=== PATIENT | female | born 1965 | race African-American/Black ===

== ENCOUNTER 2016-12-24 00:45 | Emergency (ER) | payer BC, MEDICAID ==
[~2016-12-24] VITALS: Ht 167.6 cm; Wt 82.6 kg
[~2016-12-24 00:45] MED LIST: BENADRYL25 MG ORAL; ELIMITE 5% CREA60 GM TOPIC; HYDROCODON-ACE1 EA16 ORAL; HYDROCORTISONE28 G5 TP; KEFLEX500 MG ORAL; KENALOG 0.1% CR15 GM APPLIC; LORTAB 7.5-3251 EACH PO; NKM; NORCO 5-325 TA1 EACH ORAL; PROMETHAZINE HC25 M1 ORAL; PROTONIX40 MG ORAL; RANITIDINE HCL150 MG ORAL; VALIUM5 MG ORAL
[2016-12-24 01:05] VITALS: BP 147/99
[2016-12-24] MEDS ORDERED: Pantoprazole Inj IV ONE (01:30)
[2016-12-24] MEDS ORDERED: Morphine Sulfate 4mg/ml Inj IVP ONE (01:30)
[2016-12-24 01:34] LABS: BASOPHILS % (AUTO) 1.4 % (0.0-2.0); EOSINOPHILS % (AUTO) 0.7 % (0.0-3.0); LYMPHOCYTES % (AUTO) 26.5 % (20.0-45.0); MEAN CORPUSCULAR HEMOGLOBIN 32.4 PG (27.0-31.0); MEAN CORPUSCULAR HGB CONC 33.5 G/DL (32.0-36.0); MEAN CORPUSCULAR VOLUME 97 FL (80-99); MEAN PLATELET VOLUME 5.9 FL (6.5-10.1); MONOCYTES % (AUTO) 5.9 % (1.0-10.0); NEUTROPHILS % (AUTO) 65.5 % (45.0-75.0); PLATELET COUNT 347 K/UL (150-450); RED BLOOD COUNT 4.73 M/UL (4.20-5.40); WHITE BLOOD COUNT 11.5 K/UL (4.8-10.8)
[2016-12-24 01:40] LABS: APPEARANCE,URINE CLEAR; KETONES,URINE NEGATIVE (NEGATIVE); LEUKOCYTE ESTERASE ,URINE NEGATIVE (NEGATIVE); NITRITE,URINE NEGATIVE (NEGATIVE); PH,URINE 6 (4.5-8.0); PROTEIN,URINE 1+ (NEGATIVE); UROBILINOGEN,URINE NORMAL MG/DL (0.0-1.0)
[2016-12-24 01:42] LABS: INR 0.9 (0.9-1.1); PROTHROMBIN TIME 9.4 SEC (9.30-11.50)
[2016-12-24 01:49] LABS: BACTERIA,URINE FEW /HPF; MUCUS,URINE FEW /LPF (NONE/OCC); SQUAMOUS EPITHELIAL CELL,UR MODERATE /LPF (NONE/OCC); WBC,URINE 0 /HPF (0 - 2)
[2016-12-24 01:54] LABS: ALANINE AMINOTRANSFERASE 14 U/L (3-33); ALBUMIN/GLOBULIN RATIO 1.2 (1.0-2.7); ALCOHOL 32 mg/dL; ANION GAP 19 (5-15); ASPARTATE AMINO TRANSFERASE 27 U/L (5-40); CALCIUM 9.2 mg/dL (8.6-10.2); CARBON DIOXIDE 21 mEQ/L (20-30); CHLORIDE 94 mEQ/L (98-107); CREATININE 0.9 mg/dL (0.5-0.9); GLOMERULAR FILTRATION RATE > 60 mL/min (>60); HEMOLYSIS 20; LIPASE 36 U/L (< 60); SODIUM 134 mEQ/L (135-145); TOTAL PROTEIN 7.7 g/dL (6.6-8.7)
[2016-12-24 01:58] LABS: TROPONIN I < 0.30 ng/mL (<=0.30)
--- NOTE | 2016-12-24 02:56 | Emergency Room Report ---
History of Present Illness General Chief Complaint: Vomiting Source: Patient Present Illness HPI Patient came in because she is vomiting blood and also passing blood per rectum. This began at 5 pm today. She states she's had ulcer in the past. She also some epigastric pain. Pain is 8/10, burning and pressure, epigastric not radiating. No meds taken. The rectal blood has been more bright and not melanotic. She has been straining with stools. No diarrhea. She does not have pain medicine at home. No fever, dysuria, CP, SOB, sore throat, extremity pain. Allergies: Coded Allergies: No Known Allergies (Unverified , 07/23/13) Patient History Past Medical History: see triage record Social History: Reports: alcohol use, smoking Social History Narrative at home - works at [employer] [place] [employer] [place] Last Menstrual Period: December Reviewed Nursing Documentation: PMH: Agreed, PSxH: Agreed Review of Systems All Other Systems: negative except mentioned in HPI Physical Exam Vital Signs Date Time Temp Pulse Resp B/P Pulse Ox O2 Delivery O2 Flow Rate FiO2 12/24/16 00:52 98.1 93 18 146/99 98 Room Air Sp02 EP Interpretation: reviewed, normal General Appearance: well appearing, no apparent distress, GCS 15 Head: normocephalic Eyes: bilateral eye normal inspection ENT: moist mucus membranes Neck: supple Respiratory: chest non-tender, lungs clear, normal breath sounds Cardiovascular #1: regular rate, rhythm Cardiovascular #2: 2+ radial (R) Gastrointestinal: normal inspection, normal bowel sounds, non tender, no mass, non-distended, overweight Musculoskeletal: back normal, gait/station normal, normal range of motion Neurologic: alert, oriented x3, grossly normal Psychiatric: mood/affect normal Skin: normal inspection, warm/dry Medical Decision Making Diagnostic Impression: Primary Impression: Upper GI bleed Additional Impression: Lower GI bleed ER Course Patient with vomiting blood and passing blood ME. DDx: DIC, PUD, gastritis, hemorrhoids, diverticulosis amongst others. Emergent evaluation with EKG, abd films, and labs. Treatment with IV hydration, pepcid, zofran and analgesia. H/H good. Labs unremarkable. EKG normal. CXR and abd films unremarkable. Of note is + blood alcohol. Patient feels better with treatment and is comfortable with outpatient observation. Understands need to see PMD as well as importance to return if not doing well. (Had the patient nor improved I was considering observing her in the hospital - I told her this.) Patient stable for outpatient observation and treatment. Laboratory Tests Test 12/24/16 01:00 White Blood Count 11.5 K/UL (4.8-10.8) H Red Blood Count 4.73 M/UL (4.20-5.40) Hemoglobin 15.3 G/DL (12.0-16.0) Hematocrit 45.7 % (37.0-47.0) Mean Corpuscular Volume 97 FL (80-99) Mean Corpuscular Hemoglobin 32.4 PG (27.0-31.0) H Mean Corpuscular Hemoglobin Concent 33.5 G/DL (32.0-36.0) Red Cell Distribution Width 13.0 % (11.6-14.8) Platelet Count 347 K/UL (150-450) Mean Platelet Volume 5.9 FL (6.5-10.1) L Neutrophils (%) (Auto) 65.5 % (45.0-75.0) Lymphocytes (%) (Auto) 26.5 % (20.0-45.0) Monocytes (%) (Auto) 5.9 % (1.0-10.0) Eosinophils (%) (Auto) 0.7 % (0.0-3.0) Basophils (%) (Auto) 1.4 % (0.0-2.0) Prothrombin Time 9.4 SEC (9.30-11.50) Prothrombin Time INR 0.9 (0.9-1.1) PTT 29 SEC (23-33) Urine Color Pale yellow Urine Appearance Clear Urine pH 6 (4.5-8.0) Urine Specific [place] 1.020 (1.005-1.035) Urine Protein 1+ (NEGATIVE) H Urine Glucose (UA) Negative (NEGATIVE) Urine Ketones Negative (NEGATIVE) Urine Occult Blood 5+ (NEGATIVE) H Urine Nitrite Negative (NEGATIVE) Urine Bilirubin Negative (NEGATIVE) Urine Urobilinogen Normal MG/DL (0.0-1.0) Urine Leukocyte Esterase Negative (NEGATIVE) Urine RBC 10-15 /HPF (0 - 2) H Urine WBC 0 /HPF (0 - 2) Urine Squamous Epithelial Cells Moderate /LPF (NONE/OCC) H Urine Bacteria Few /HPF (NONE) Urine Mucus Few /LPF (NONE/OCC) H Sodium Level 134 mEQ/L (135-145) L Potassium Level 4.0 mEQ/L (3.4-4.9) Chloride Level 94 mEQ/L (98-107) L Carbon Dioxide Level 21 mEQ/L (20-30) Anion Gap 19 (5-15) H Blood Urea Nitrogen 15 mg/dL (7-23) Creatinine 0.9 mg/dL (0.5-0.9) Estimate Glomerular Filtration Rate > 60 mL/min (>60) Glucose Level 89 mg/dL (74-106) Calcium Level 9.2 mg/dL (8.6-10.2) Total Bilirubin < 0.2 mg/dL (0.0-1.2) Aspartate Amino Transferase (AST) 27 U/L (5-40) Alanine Aminotransferase (ALT) 14 U/L (3-33) Alkaline Phosphatase 86 U/L (35-104) Troponin I < 0.30 ng/mL (<=0.30) Total Protein 7.7 g/dL (6.6-8.7) Albumin 4.2 g/dL (3.5-5.2) Globulin 3.5 g/dL Albumin/Globulin Ratio 1.2 (1.0-2.7) Lipase 36 U/L (< 60) Urine Opiates Screen Negative (NEGATIVE) Urine Barbiturates Screen Negative (NEGATIVE) Phencyclidine (PCP) Screen Negative (NEGATIVE) Urine Amphetamines Screen Negative (NEGATIVE) Urine Benzodiazepines Screen Negative (NEGATIVE) Urine Cocaine Screen Negative (NEGATIVE) Urine Marijuana (THC) Screen Positive (NEGATIVE) H Serum Alcohol 32 mg/dL EKG Diagnostic Results Rate: normal Rhythm: NSR ST Segments: no acute changes Rhythm Strip Diag. Results EP Interpretation: yes Rhythm: NSR, no PVC's, no ectopy Chest X-Ray Diagnostic Results EP Interpretation: Yes Number of Views: 1 Other X-Ray Diagnostic Results Other X-Ray Diagnostic Results : X-Ray Ordered: abd EP Interpretation: Yes Findings: other - NSBGP, no masses, phleboliths Number of Views: 2 Last Vital Signs Date Time Temp Pulse Resp B/P Pulse Ox O2 Delivery O2 Flow Rate FiO2 12/24/16 06:18 98.1 77 17 137/88 100 Room Air Status: improved Disposition: HOME, SELF-CARE Condition: Improved Scripts Lactulose (LACTULOSE*) 20 Gm/30 Ml Solution 30 ML ORAL BID, #120 ML 1 Refill Prov: Scott Jones M.D. 12/24/16 Famotidine (PEPCID) 20 Mg Tablet 20 MG ORAL DAILY, #30 TAB 0 Refills Prov: Scott Jones M.D. 12/24/16 Tramadol Hcl* (ULTRAM*) 50 Mg Tablet 50 MG ORAL Q6H Y for For Pain, #12 TAB 0 Refills Prov: Scott Jones M.D. 12/24/16 Referrals: NOT CHOSEN HOANG/,REFERRING (PCP) Scott Jones M.D. Dec 24, 2016 02:56
[2016-12-24] MEDS ORDERED: HYDROmorphone 1mg/ml Carpuject IVP ONE (03:15)
[2016-12-24 03:21] VITALS: BP 153/92
[2016-12-24 05:48] VITALS: BP 137/88
[2016-12-24] MEDS ORDERED: DiphenhydrAMINE 50mg/ml Inj IVP ONE (06:00)
[2016-12-24] MEDS ORDERED: PEPCID20 MG ORAL (06:06)
[2016-12-24] MEDS ORDERED: TRAMADOL HCL50 MG ORAL (06:06)
[2016-12-24] MEDS ORDERED: LACTULOSE20 GM/301 ORAL (06:06)
[2016-12-24 06:18] VITALS: BP 137/88
--- NOTE | 2016-12-24 11:41 | Diagnostic Imaging Report ---
Indication: Abdominal pain Comparison: None Single view of the abdomen obtained Findings: Bowel gas pattern is nonspecific. No mass, ectopic calcifications, or abnormal gas collections are identified. The bones are unremarkable. Impression: No acute findings
--- NOTE | 2016-12-27 11:36 | Cardiology Report ---
APPROVED REPORT EKG Measurement Heart [id number] VT 156P [id number] Suspect arm lead reversal, interpretation assumes no reversal Normal sinus rhythm Anterolateral infarct, age undetermined Abnormal ECG
== END 2016-12-24 06:18 | disposition home or self-care (01) ==
LOC: EMR 01:45
DX: K92.2 Gastrointestinal hemorrhage, unspecified (principal)
CPT/HCPCS: 36415; 74000; 80053; 80300; 81003; 83690; 84484; 85025; 85610; 85730; 86850; 86900; 86901; 93005; 96374; 96375; 99284; C9113; G0480; J1170; J1200; J2270; J2405; 80329

== ENCOUNTER 2018-11-13 11:40 | Inpatient (IN) | payer BC ==
[~2018-11-13] VITALS: Ht 167.6 cm; Wt 82.6 kg
[~2018-11-13 11:40] MED LIST changes: +LACTULOSE20 GM/301 ORAL; +PEPCID20 MG ORAL; +TRAMADOL HCL50 MG ORAL
--- NOTE | 2018-11-13 11:46 | NUR ---
ED Nurse Note: AMBULATED IN TO ER DUE TO HEADACHE, WEAK, LEFT CHEST PAIN 8/10 RADIATING TO RIGHT EAR AND HEAD. PT REPORTS THAT SYMPTOMS STARTED AFTER SHE HAD SEIZURE 11/11/18. PT REPORTS THAT DR. CAMILO HARO REFERRED PT TO VISIT ER TODAY. Patient is alert and oriented x4, ambulatory with a steady gait, VSS
[2018-11-13] MEDS ORDERED: KEPPRA500 M4 ORAL (11:51)
[2018-11-13 12:03] VITALS: BP 130/94
[2018-11-13 12:24] LABS: EOSINOPHILS % (AUTO) 0.8 % (0.0-3.0); HEMATOCRIT 48.6 % (37.0-47.0); HEMOGLOBIN 15.6 G/DL (12.0-16.0); LYMPHOCYTES % (AUTO) 26.4 % (20.0-45.0); MEAN CORPUSCULAR VOLUME 95 FL (80-99); MONOCYTES % (AUTO) 5.7 % (1.0-10.0); NEUTROPHILS % (AUTO) 66.1 % (45.0-75.0); PLATELET COUNT 356 K/UL (150-450); RED BLOOD COUNT 5.13 M/UL (4.20-5.40); RED CELL DISTRIBUTION WIDTH 14.2 % (11.6-14.8); WHITE BLOOD COUNT 6.4 K/UL (4.8-10.8)
--- NOTE | 2018-11-13 12:32 | Diagnostic Imaging Report ---
Indication: Chest pain Comparison: 09/15/2014 A single view chest radiograph was obtained. Findings: Cardiomediastinal appearance is within normal limits for age. The lungs are clear. Pulmonary vascularity is appropriate. The diaphragmatic contour is smooth and costophrenic angles are sharp. No pleural effusions are identified. The bones are unremarkable. Impression: No acute findings
[2018-11-13 12:33] LABS: ANION GAP 14 mmol/L (5-15); BLOOD UREA NITROGEN 12 mg/dL (7-18); CALCIUM 9.4 MG/DL (8.5-10.1); CARBON DIOXIDE 21 MMOL/L (21-32); CHLORIDE 101 MMOL/L (98-107); CREATININE 0.9 MG/DL (0.55-1.30); POTASSIUM 4.1 MMOL/L (3.5-5.1); SODIUM 136 MMOL/L (136-145)
--- NOTE | 2018-11-13 12:42 | Diagnostic Imaging Report ---
Indication: Headache Technique: Contiguous 5 mm thick transaxial imaging of the head obtained in a Siemens Sensation [address] scanner. Soft tissue and bone windows generated. Automatic Exposure Control was utilized. Total Dose length Product (DLP): 1281.[address] Dose Index Volume (CTDIvol): 70.38 mGy Comparison: none Findings: The size and configuration of the cortical sulci, basal cisterns, and ventricles are within normal limits for age. There is no mass effect, midline shift, or edema identified. There is no evidence of acute hemorrhage or abnormal intra-axial or extra-axial fluid collections. The bones and soft tissues are unremarkable. Impression: No mass effect, edema or acute bleed. The CT scanner at [facility] is accredited by the [employer] and the scans are performed using dose optimization techniques as appropriate to a performed exam including Automatic Exposure control.
[2018-11-13 12:47] LABS: ALANINE AMINOTRANSFERASE 33 U/L (12-78); ALBUMIN 3.8 G/DL (3.4-5.0); ALBUMIN/GLOBULIN RATIO 0.8 (1.0-2.7); ALKALINE PHOSPHATASE 117 U/L (46-116); ASPARTATE AMINO TRANSFERASE 30 U/L (15-37); BILIRUBIN,TOTAL 0.3 MG/DL (0.2-1.0); CKMB 0.5 NG/ML (0.0-3.6); CREATINE KINASE 70 U/L (26-308)
[2018-11-13] MEDS ORDERED: Ketorolac 30mg Inj IV ONE (13:15)
[2018-11-13] MEDS ORDERED: DiphenhydrAMINE 50mg/ml Inj IVP ONE (13:15)
--- NOTE | 2018-11-13 14:36 | Emergency Room Report ---
History of Present Illness General Chief Complaint: General Complaint Source: Patient Present Illness HPI This patient states that she's been getting severe headaches. She states he's had exerted debilitating. She was also told she may have had seizures. She has not been formally diagnosed with epilepsy and has not seen a neurologist. She states that she was seen at another hospital 2 days ago. She states she underwent a CAT scan of her head and was told she had some cerebellar abnormality of the tonsils. She has not had an MRI. She states that she is also been having chest pain and severe insomnia. She states she has been getting sweating at night. She believes she may be going through menopause. Denies recent illness. She denies fever or chills. She denies nausea or vomiting. She denies abdominal pain. She has no other complaints. Allergies: Coded Allergies: No Known Allergies (Unverified , 11/13/18) Patient History Past Medical History: none, GERD, seizures Social History: Reports: smoking; Denies: alcohol use, drug use Last Menstrual Period: AUG 2018 Reviewed Nursing Documentation: PMH: Agreed; PSxH: Agreed Nursing Documentation-PMH Past Medical History: No History, Except For Hx Seizures: Yes Review of Systems All Other Systems: negative except mentioned in HPI Physical Exam Vital Signs Date Time Temp Pulse Resp B/P (MAP) Pulse Ox O2 Delivery O2 Flow Rate FiO2 11/13/18 11:46 98.6 102 16 130/94 96 Room Air Sp02 EP Interpretation: reviewed, normal General Appearance: no apparent distress, alert, GCS 15, non-toxic Head: normocephalic, atraumatic Eyes: bilateral eye normal inspection, bilateral eye PERRL ENT: hearing grossly normal, normal pharynx, no angioedema, normal voice Neck: full range of motion, supple/symm/no masses Respiratory: chest non-tender, lungs clear, normal breath sounds, no respiratory distress, no retraction, no accessory muscle use, speaking full sentences Cardiovascular #1: regular rate, rhythm, no edema Gastrointestinal: normal bowel sounds, non tender, soft, non-distended, no guarding, no rebound Rectal: deferred Musculoskeletal: back normal, gait/station normal, normal range of motion, non- tender Neurologic: alert, oriented x3, responsive, motor strength/tone normal, sensory intact, speech normal Psychiatric: judgement/insight normal, memory normal, mood/affect normal, no suicidal/homicidal ideation Skin: normal color, no rash, warm/dry, well hydrated Medical Decision Making Diagnostic Impression: Primary Impression: Migraine headache Additional Impression: Chest pain ER Course I believe this patient is having complicated migraine headaches. She notes that she was found to have an abnormal CT scan at another facility that involved her cerebellum. She mentioned tonsillar abnormalities. This could be related to an Arnold-Chiari malformation and could be the etiology of her headaches. She could have underlying seizure disorder. The patient also has been having chest pain. The patient states that she has nonfunctional and her symptoms are non-tolerable. She was admitted IV Benadryl and Compazine here in the emergency department and had good relief. She is admitted for further evaluation by neurology. I will order an MRI brain that this will be followed up by the inpatient physician. This patient may also need an EEG to determine if she is having seizures. She also be admitted to have further evaluation for her chest pain. Laboratory Tests Test 11/13/18 12:00 White Blood Count 6.4 K/UL (4.8-10.8) Red Blood Count 5.13 M/UL (4.20-5.40) Hemoglobin 15.6 G/DL (12.0-16.0) Hematocrit 48.6 % (37.0-47.0) H Mean Corpuscular Volume 95 FL (80-99) Mean Corpuscular Hemoglobin 30.5 PG (27.0-31.0) Mean Corpuscular Hemoglobin Concent 32.2 G/DL (32.0-36.0) Red Cell Distribution Width 14.2 % (11.6-14.8) Platelet Count 356 K/UL (150-450) Mean Platelet Volume 5.6 FL (6.5-10.1) L Neutrophils (%) (Auto) 66.1 % (45.0-75.0) Lymphocytes (%) (Auto) 26.4 % (20.0-45.0) Monocytes (%) (Auto) 5.7 % (1.0-10.0) Eosinophils (%) (Auto) 0.8 % (0.0-3.0) Basophils (%) (Auto) 1.0 % (0.0-2.0) Sodium Level 136 MMOL/L (136-145) Potassium Level 4.1 MMOL/L (3.5-5.1) Chloride Level 101 MMOL/L (98-107) Carbon Dioxide Level 21 MMOL/L (21-32) Anion Gap 14 mmol/L (5-15) Blood Urea Nitrogen 12 mg/dL (7-18) Creatinine 0.9 MG/DL (0.55-1.30) Estimate Glomerular Filtration Rate > 60 mL/min (>60) Glucose Level 95 MG/DL (74-106) Calcium Level 9.4 MG/DL (8.5-10.1) Total Bilirubin 0.3 MG/DL (0.2-1.0) Aspartate Amino Transferase (AST) 30 U/L (15-37) Alanine Aminotransferase (ALT) 33 U/L (12-78) Alkaline Phosphatase 117 U/L (46-116) H Total Creatine Kinase 70 U/L (26-308) Creatine Kinase MB 0.5 NG/ML (0.0-3.6) Creatine Kinase MB Relative Index 0.7 Troponin I 0.000 ng/mL (0.000-0.056) Total Protein 8.6 G/DL (6.4-8.2) H Albumin 3.8 G/DL (3.4-5.0) Globulin 4.8 g/dL Albumin/Globulin Ratio 0.8 (1.0-2.7) L Urine Opiates Screen Negative (NEGATIVE) Urine Barbiturates Screen Negative (NEGATIVE) Phencyclidine (PCP) Screen Negative (NEGATIVE) Urine Amphetamines Screen Negative (NEGATIVE) Urine Benzodiazepines Screen Negative (NEGATIVE) Urine Cocaine Screen Negative (NEGATIVE) Urine Marijuana (THC) Screen Positive (NEGATIVE) H EKG Diagnostic Results Rate: normal Rhythm: NSR ST Segments: no acute changes Rhythm Strip Diag. Results EP Interpretation: yes Rate: 90's Rhythm: NSR, no PVC's, no ectopy Chest X-Ray Diagnostic Results Chest X-Ray Diagnostic Results : Chest X-Ray Ordered: Yes # of Views/Limited/Complete: 1 View Indication: Chest Pain EP Interpretation: Yes Interpretation: no consolidation, no effusion, no pneumothorax, no acute cardiopulmonary disease Impression: No acute disease Electronically Signed by: Vickie Montague DO Last Vital Signs Date Time Temp Pulse Resp B/P (MAP) Pulse Ox O2 Delivery O2 Flow Rate FiO2 11/13/18 13:49 98.6 11/13/18 12:03 88 16 130/94 96 Room Air Disposition: ADMITTED INPATIENT Condition: Stable Referrals: Geoffrey Ayala DO (PCP) Vickie Montague DO Nov 13, 2018 14:36
[2018-11-13 14:38] VITALS: BP 125/84
--- NOTE | 2018-11-13 15:25 | NUR ---
ED Nurse Note: PT WENT DOWN TO MRI
[2018-11-13 15:52] VITALS: BP 127/95
--- NOTE | 2018-11-13 15:55 | NUR ---
ED Nurse Note: Patient transported to telemetry, patient tolerated transfer well with no distress and report was given to MARCELO Mascorro
[2018-11-13] MEDS ORDERED: Albuterol/Ipratropium 3ml neb HHN PRN (16:00)
[2018-11-13] MEDS ORDERED: dilTIAZem HCl 25mg/5ml Inj IV PRN (16:00)
[2018-11-13] MEDS ORDERED: Enalaprilat 2.5mg/2ml Inj IV PRN (16:00)
[2018-11-13] MEDS ORDERED: Ketorolac 30mg Inj IV PRN (16:00)
[2018-11-13] MEDS ORDERED: Norco 5mg/325mg tab ORAL PRN (16:00)
[2018-11-13] MEDS ORDERED: Nitroglycerin Subl 0.4mg tab SL PRN (16:00)
[2018-11-13] MEDS ORDERED: Miralax 17gm pkt ORAL PRN (16:00)
[2018-11-13] MEDS ORDERED: traMADol 50mg tab ORAL PRN (16:00)
--- NOTE | 2018-11-13 16:36 | NUR ---
NURSE NOTES: rceived pt ambulatory, aox4, no distress. no sob. pt states theres still some pain in left chest that does not radiate to arm only to "underarm area but it's better than from when i was in the er" call light within reach. will monitor. pt denies medical history except for seizures. skin intact. Addendum: 11/13/18 at 1911 by BILLY CALDWELL RN PER PT LAST NORMAL BM TODAY PRIOR TO ADMISSION
[2018-11-13 16:40] VITALS: BP 139/103
--- NOTE | 2018-11-13 16:48 | Diagnostic Imaging Report ---
Indication: Seizure. Severe headache Technique: The head was imaged in a 1.5 Lyn magnet. Sequences obtained include sagittal and axial T1 FLAIR, axial T2 fast spin echo with fat saturation, axial T2 FLAIR, diffusion and ADC map. Comparison: None Findings: The size, contour, and configuration of the sulci, ventricles, and basal cisterns appear normal. Au-white differentiation is normal. There is no restricted diffusion. There is no mass effect, midline shift, edema, or hemorrhage. There are no abnormal extra-axial or intra-axial fluid collections. The corpus callosum is unremarkable. The brainstem and cerebellum are unremarkable. The sella is unremarkable. Bone marrow signal within the visualized osseous structures appears age appropriate and unremarkable otherwise. Impression: Negative MRI brain without contrast.
--- NOTE | 2018-11-13 19:08 | NUR ---
HAND-OFF: Report given to MARCELO AVITIA.
--- NOTE | 2018-11-13 19:39 | Cardiology Progress Note ---
Assessment/Plan Assessment/Plan The patient is seen and examined, full consult note is dictated. Objective Last 24 Hour Vital Signs Date Time Temp Pulse Resp B/P (MAP) Pulse Ox O2 Delivery O2 Flow Rate FiO2 11/13/18 16:40 97.8 80 20 139/103 (115) 99 11/13/18 16:33 Room Air 11/13/18 16:11 97.8 95 23 127/95 99 Room Air 11/13/18 15:52 97.8 95 23 127/95 99 Room Air 11/13/18 14:38 98.5 105 22 125/84 98 Room Air 11/13/18 13:49 98.6 11/13/18 12:03 98.6 88 16 130/94 96 Room Air 11/13/18 12:00 102 16 Room Air 11/13/18 11:46 98.6 102 16 130/94 96 Room Air Laboratory Tests Test 11/13/18 12:00 11/13/18 16:30 White Blood Count 6.4 K/UL (4.8-10.8) Red Blood Count 5.13 M/UL (4.20-5.40) Hemoglobin 15.6 G/DL (12.0-16.0) Hematocrit 48.6 % (37.0-47.0) H Mean Corpuscular Volume 95 FL (80-99) Mean Corpuscular Hemoglobin 30.5 PG (27.0-31.0) Mean Corpuscular Hemoglobin Concent 32.2 G/DL (32.0-36.0) Red Cell Distribution Width 14.2 % (11.6-14.8) Platelet Count 356 K/UL (150-450) Mean Platelet Volume 5.6 FL (6.5-10.1) L Neutrophils (%) (Auto) 66.1 % (45.0-75.0) Lymphocytes (%) (Auto) 26.4 % (20.0-45.0) Monocytes (%) (Auto) 5.7 % (1.0-10.0) Eosinophils (%) (Auto) 0.8 % (0.0-3.0) Basophils (%) (Auto) 1.0 % (0.0-2.0) Sodium Level 136 MMOL/L (136-145) Potassium Level 4.1 MMOL/L (3.5-5.1) Chloride Level 101 MMOL/L (98-107) Carbon Dioxide Level 21 MMOL/L (21-32) Anion Gap 14 mmol/L (5-15) Blood Urea Nitrogen 12 mg/dL (7-18) Creatinine 0.9 MG/DL (0.55-1.30) Estimat Glomerular Filtration Rate > 60 mL/min (>60) Glucose Level 95 MG/DL (74-106) Calcium Level 9.4 MG/DL (8.5-10.1) Total Bilirubin 0.3 MG/DL (0.2-1.0) Aspartate Amino Transf (AST/SGOT) 30 U/L (15-37) Alanine Aminotransferase (ALT/SGPT) 33 U/L (12-78) Alkaline Phosphatase 117 U/L (46-116) H Total Creatine Kinase 70 U/L (26-308) Creatine Kinase MB 0.5 NG/ML (0.0-3.6) Creatine Kinase MB Relative Index 0.7 Troponin I 0.000 ng/mL (0.000-0.056) 0.000 ng/mL (0.000-0.056) Total Protein 8.6 G/DL (6.4-8.2) H Albumin 3.8 G/DL (3.4-5.0) Globulin 4.8 g/dL Albumin/Globulin Ratio 0.8 (1.0-2.7) L Urine Opiates Screen Negative (NEGATIVE) Urine Barbiturates Screen Negative (NEGATIVE) Phencyclidine (PCP) Screen Negative (NEGATIVE) Urine Amphetamines Screen Negative (NEGATIVE) Urine Benzodiazepines Screen Negative (NEGATIVE) Urine Cocaine Screen Negative (NEGATIVE) Urine Marijuana (THC) Screen Positive (NEGATIVE) H Aquilino Galeas MD Nov 13, 2018 19:39
--- NOTE | 2018-11-13 19:45 | NUR ---
NURSE NOTES: Received report from Ludwin ROBERTSON. Pt is awake, alert, oriented x4. Pt is on room air with no sign of sob or resp distress. Pt denies pain. call light within reach, bed in lowest position, two side rails up, brakes engaged, will continue with plan of care
[2018-11-13 20:00] VITALS: BP 120/95
[2018-11-13] MEDS: Heparin 5000 units/ml inj SUBQ SCH (21:46)
[2018-11-14] VITALS (8 sets, daily range): BP systolic 100–162; BP diastolic 69–93
[2018-11-14] MEDS: Morphine Sulfate 2mg/ml Inj IVP PRN ×4 (01:04→23:13)
--- NOTE | 2018-11-14 01:30 | Consultation ---
DATE OF CONSULTATION: 11/13/2018 NOTE: POOR AUDIO CONSULTING PHYSICIAN: Balbina Campo M.D. HISTORY OF PRESENT ILLNESS: This is a 53-year-old female patient. She came back to the hospital secondary to chest pain and she presently has a significant amount of chest pain when she came in. She has been having problems with seizure disorder medication such as Dilantin. She does not see Psych regularly. She has been having extreme mood lability, agitation. She apparently started getting very upset with colleagues at work. She states she works in [employer] and she feels as though other staff supposed to. The patient is very upset and she thinks now, actually gets so irritated, seizure medication has made her depressed and highly anxious. That is the reason why psychiatric consultation requested by attending physician to manage her recent anxiety and depression symptoms that she has been having. 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 ALLERGIES: The patient has no known drug allergies at this time. SUBSTANCE ABUSE HISTORY: Denies any use of any drugs or alcohol at this time. PSYCHOTROPIC MEDICATIONS ON ADMISSION: She states she has not been taking any psychotropic medications on admission. FAMILY HISTORY: Denies drug or alcohol use. FAMILY PSYCH HISTORY: Denies. PAIN ASSESSMENT: 12/16 pain. DEVELOPMENTAL PROBLEMS: No known developmental problems at this time. SOCIAL HISTORY: She financially supported by job. PSYCHIATRIC HISTORY: No previous psychiatric history that she mentioned. STRENGTHS: She is motivated to get better. She has her own place to live. WEAKNESSES: She is impulsive. Minimal support system. MENTAL STATUS EXAMINATION: This is a 53-year-old female patient. Her appearance is well groomed. Attitude irritable, agitated. Affect is slightly labile. Intellect good. . Mood, depressed and anxious. Motor activity, psychomotor agitation. Attention span is she has reduced insight spell words backwards. Orientation x4. She is oriented to person, place, time, situation. Speech is normal volume. Thought process linear, goal directed. Thought content, denies auditory or visual hallucinations, or delusions. Perceptions, the patient . She understands . She does not have cognitive thinking. Insight is good. She recognizes her mood. Insight and judgment is good. She is able to make chandler decisions for medical and social care. She denies any suicidal or homicidal ideations. Short-term memory, 3/3 word recall after 5 minutes delay. Long-term memory is intact based on the knowledge of long-term events of life such as the high school that she went to. DIAGNOSES: 1. Major depressive disorder, mild, recurrent, without psychotic features. 2. Medical, chest pain. 3. Psychosocial stressors, occupational stressors. PLAN: For this patient, I am going to start this patient on Remeron at 15 mg at bedtime to help her with insomnia that is one of her complaints and it is going to be at bedtime to deal with insomnia, depression, and anxiety. In addition to that, I am also going to prescribe p.r.n. Vistaril 25 mg p.o. q.4 h. p.r.n. anxiety, agitation, and she will continue to be followed by Psychiatry throughout the hospital course. Twenty minutes of cognitive behavioral therapy provided to identify automatic negative thoughts, to convert any negative thoughts to more positive thinking to reduce depression, anxiety, and mood lability. Chart reviewed. Discussed with staff. The patient seen and assessed in her room. I would like to thank Dr. Geoffrey Ayala for this interesting consultation. Balbina Campo M.D. DR: HONG JOB#: [id number] CC:
--- NOTE | 2018-11-14 01:45 | Consultation ---
DATE OF CONSULTATION: 11/13/2018 CARDIOLOGY CONSULTATION CONSULTING PHYSICIAN: Aquilino Galeas M.D. REFERRING PHYSICIAN: Geoffrey Ayala D.O. REASON FOR CONSULTATION: Management of chest pain. HISTORY OF PRESENT ILLNESS: The patient is a very unfortunate 53-year-old lady with history of epilepsy, on Keppra, wakes up in the morning to go to work, feeling that she might have had another seizure activity while she was asleep as she had noticed severe headache and soreness all over her body with associated left precordial chest pain as well as weakness. The patient states that she was sluggish in the morning and thought that she might have had a seizure activity. She had two other episodes of these seizures in the past, the last one before this one was in June, where this seizure activity was witnessed. This one was not witnessed as she was still at home alone. She denies any tongue biting or urinary incontinence. At the time of arrival to the hospital, blood pressure was 130/94 mmHg and heart rate was 102. A 12-lead electrocardiogram revealed sinus rhythm at rate of 98 with normal axis. No acute ST and T-wave abnormalities. Two troponin I levels were negative. The patient was admitted to telemetry for further evaluation and management of seizure disorder as well as chest pain. At the bedside, the patient states that she has no history of coronary artery disease or congestive heart failure. She denies any dyspnea on exertion. She described chest pain as sharp in the upper left precordial and currently the pain is resolved. There was no associated shortness of breath, nausea, vomiting, or diaphoresis with this condition. PAST MEDICAL HISTORY: GERD and epilepsy. SOCIAL HISTORY: Smokes about 7 to 8 cigarettes per day since she was 17. Denies any alcohol. She also admits to using marijuana. ALLERGIES: No known drug allergies. MEDICATIONS: List of medications at home includes Keflex 500 mg 3 times a day, Valium 5 mg p.o. 3 times a day, Pepcid 20 mg p.o. daily, [place] 5/325 one tablet q.6 h. p.r.n. pain, lactulose 30 mL p.o. twice daily, Keppra 500 mg q.12 h., Permethrin one application topically once daily, and tramadol 50 mg q.6 h. p.r.n. pain. PAST SURGICAL HISTORY: None. FAMILY HISTORY: No premature coronary artery disease or arrhythmogenic in the first-degree relatives. REVIEW OF SYSTEMS: HEAD AND NECK: Complains of dizziness, headaches, and lightheadedness. CONSTITUTIONAL: Complains of generalized weakness, but no fever, chills, or night sweats. CARDIOVASCULAR: Chest pain in the left upper precordial, sharp, non-provoked, not associated with any shortness of breath. Denies any PND, orthopnea, or leg swelling. PULMONARY: Denies any cough, hemoptysis, or wheezing. GASTROINTESTINAL: Denies any nausea, vomiting, diarrhea, constipation, abdominal pain, or GI bleed. GENITOURINARY: Denies any hematuria, dysuria, or incontinence. NEUROLOGY: Denies any motor dysfunction, sensory deficit, or altered speech. PHYSICAL EXAMINATION: VITAL SIGNS: Blood pressure at the time of arrival to the hospital was 130/94, respirations 16, pulse of 103, temperature 98.6 degrees Fahrenheit, and O2 saturation 96% on room air. GENERAL: This is a very unfortunate 53-year-old lady who was seen in Cardiology consultation. No apparent respiratory distress. HEENT: Atraumatic and normocephalic. Anicteric. Pupils are equal, round, and reactive to light and accommodation. Extraocular muscles intact. NECK: JVP less than 5 cm. No carotid bruit. Carotid upstrokes 2+ bilaterally. CARDIOVASCULAR: Normal S1 and S2. Regular rate and rhythm. No murmurs, gallops, or rubs. PMI is at fourth intercostal space in the midclavicular line. LUNGS: Clear to auscultation bilaterally. ABDOMEN: Soft, nontender, and nondistended. No hepatosplenomegaly. Positive bowel sounds. EXTREMITIES: No evidence of edema, clubbing, or cyanosis. LABORATORY FINDINGS: Urine tox screen showed positive marijuana. Chemistry shows sodium 136, potassium is 4.1, chloride 101, bicarbonate 21, BUN of 12, creatinine 0.9, glucose 95, and troponin I x2 negative. WBC 6.4, hemoglobin of 15.6, hematocrit of 48.6, and platelet count is 356,000. Chest x-ray showed there is small cardiac silhouette with no acute cardiopulmonary disease. ASSESSMENT AND PLAN: The patient is a very unfortunate 53-year-old lady, who was seen in Cardiology consultation. 1. Most likely noncardiac chest pain. This could be a chest wall trauma during her seizure activities, there are no ischemic changes on a 12-lead electrocardiogram, acute myocardial infarction ruled out. No further cardiac test is required as the patient does not have any risk factors for coronary artery disease. 2. Epilepsy. Neurology consultation, possible EEG, and adjustment of dose of Keppra. 3. History of GERD. 4. I would like to obtain 2D echocardiography. A 12-lead electrocardiogram is not typical for pulmonary embolism, however, given the fact that the patient has lost consciousness, I would like to rule out pulmonary embolism. I do not have any explanation for patient's tachycardia at this time. We would obtain a D-dimer at this point. 5. A 2D echocardiography will be done to assess RA and RV size and possible pulmonary hypertension. 6. History of epilepsy. I would like to thank Dr. Ayala for allowing me to participate in the care of this patient. Aquilino Galeas M.D. DR: ANDRIA JOB#: [id number] CC:
[2018-11-14 06:24] LABS: BASOPHILS % (AUTO) 0.8 % (0.0-2.0); EOSINOPHILS % (AUTO) 1.4 % (0.0-3.0); HEMATOCRIT 39.2 % (37.0-47.0); HEMOGLOBIN 12.9 G/DL (12.0-16.0); LYMPHOCYTES % (AUTO) 35.2 % (20.0-45.0); MEAN CORPUSCULAR VOLUME 95 FL (80-99); MONOCYTES % (AUTO) 7.7 % (1.0-10.0); PLATELET COUNT 279 K/UL (150-450); RED BLOOD COUNT 4.13 M/UL (4.20-5.40); RED CELL DISTRIBUTION WIDTH 13.8 % (11.6-14.8); WHITE BLOOD COUNT 5.6 K/UL (4.8-10.8)
[2018-11-14 06:38] LABS: INR 0.9 (0.9-1.1)
[2018-11-14 07:10] LABS: CHOLESTEROL 221 MG/DL (< 200); HDL CHOLESTEROL 90 MG/DL (40-60); TRIGLYCERIDES 86 MG/DL (30-150)
--- NOTE | 2018-11-14 07:13 | NUR ---
HAND-OFF: Report given to Marisol ROBERTSON.
[2018-11-14] MEDS: Aspirin Baby 81mg ORAL SCH (08:38)
[2018-11-14] MEDS: Heparin 5000 units/ml inj SUBQ SCH ×2 (08:39→21:00)
--- NOTE | 2018-11-14 11:16 | Consultation ---
History of Present Illness General Date patient seen: Nov 14, 2018 Chief Complaint: General Complaint Present Illness HPI 53 year old female with hx of GERD, seizures presented to ER with CC of chest pain and severe insomnia, Headache as well. She states she has been getting sweating at night. She believes she may be going through menopause. Denies recent illness. she is admitted to telemetry for further work up. Allergies: Coded Allergies: No Known Allergies (Unverified , 11/13/18) Medication History Scheduled Cephalexin* (Keflex*), 500 MG ORAL TID Famotidine (Pepcid), 20 MG ORAL DAILY Hydrocodone/Acetaminophen (Lortab 7.5-325 mg Tablet), 1 EACH PO Q6HR Lactulose (Lactulose*), 30 ML ORAL BID Levetiracetam (Keppra), 500 MG ORAL EVERY 12 HOURS, (Reported) No Known Medications* (NKM - No Known Medications*), 0 ., (Reported) Permethrin (Permethrin), 1 APPLIC TOPIC ONCE Scheduled PRN Diazepam* (Valium*), 5 MG ORAL TID PRN for spasm Hydrocodone Bit/Acetaminophen 5-325* ([place] 5-325*), 1 TAB ORAL Q6H PRN for For Pain Hydrocodone Bit/Acetaminophen 5-325* ([place] 5-325*), 1 TAB ORAL Q6H PRN for For Pain Hydrocodone/Acetaminophen 7.5-325* (Hydrocodon-Acetaminoph 7.5-325*), 1 TAB ORAL Q6H PRN for For Pain Tramadol Hcl* (Ultram*), 50 MG ORAL Q6H PRN for For Pain Patient History Healthcare decision maker Resuscitation status Full Code Advanced Directive on File Past Medical/Surgical History Past Medical/Surgical History: (1) Contact dermatitis (2) Colitis (3) Migraine headache Review of Systems All Other Systems: negative except mentioned in HPI Physical Exam General Appearance: WD/WN Lines, tubes and drains: peripheral HEENT: normocephalic, atraumatic Neck: non-tender, normal alignment Respiratory/Chest: chest wall non-tender, lungs clear Breasts: no masses Cardiovascular/Chest: normal peripheral pulses Abdomen: normal bowel sounds Genitourinary/Rectal: normal genital exam Extremities: normal range of motion Last 24 Hour Vital Signs Date Time Temp Pulse Resp B/P (MAP) Pulse Ox O2 Delivery O2 Flow Rate FiO2 11/14/18 08:00 98.6 90 18 131/80 (97) 98 11/14/18 06:35 97.8 11/14/18 04:00 97.8 84 18 130/93 (105) 97 11/14/18 04:00 66 11/14/18 00:00 97.7 76 19 135/73 (93) 98 11/14/18 00:00 92 11/13/18 22:55 91 20 Room Air 21 11/13/18 22:54 97 Room Air 21 11/13/18 21:00 Room Air 11/13/18 20:00 98 11/13/18 20:00 98.3 95 20 120/95 (103) 100 11/13/18 16:40 97.8 80 20 139/103 (115) 99 11/13/18 16:33 Room Air 11/13/18 16:11 97.8 95 23 127/95 99 Room Air 11/13/18 15:52 97.8 95 23 127/95 99 Room Air 11/13/18 14:38 98.5 105 22 125/84 98 Room Air 11/13/18 13:49 98.6 11/13/18 12:03 98.6 88 16 130/94 96 Room Air 11/13/18 12:00 102 16 Room Air 11/13/18 11:46 98.6 102 16 130/94 96 Room Air Intake and Output 11/13/18 11/14/18 19:00 07:00 Intake Total 290 ml Balance 290 ml Intake Oral 290 ml # Voids 2 Laboratory Tests Test 11/13/18 12:00 11/13/18 16:30 11/14/18 05:30 White Blood Count 6.4 K/UL (4.8-10.8) 5.6 K/UL (4.8-10.8) Red Blood Count 5.13 M/UL (4.20-5.40) 4.13 M/UL (4.20-5.40) L Hemoglobin 15.6 G/DL (12.0-16.0) 12.9 G/DL (12.0-16.0) Hematocrit 48.6 % (37.0-47.0) H 39.2 % (37.0-47.0) Mean Corpuscular Volume 95 FL (80-99) 95 FL (80-99) Mean Corpuscular Hemoglobin 30.5 PG (27.0-31.0) 31.3 PG (27.0-31.0) H Mean Corpuscular Hemoglobin Concent 32.2 G/DL (32.0-36.0) 33.0 G/DL (32.0-36.0) Red Cell Distribution Width 14.2 % (11.6-14.8) 13.8 % (11.6-14.8) Platelet Count 356 K/UL (150-450) 279 K/UL (150-450) Mean Platelet Volume 5.6 FL (6.5-10.1) L 5.4 FL (6.5-10.1) L Neutrophils (%) (Auto) 66.1 % (45.0-75.0) 55.0 % (45.0-75.0) Lymphocytes (%) (Auto) 26.4 % (20.0-45.0) 35.2 % (20.0-45.0) Monocytes (%) (Auto) 5.7 % (1.0-10.0) 7.7 % (1.0-10.0) Eosinophils (%) (Auto) 0.8 % (0.0-3.0) 1.4 % (0.0-3.0) Basophils (%) (Auto) 1.0 % (0.0-2.0) 0.8 % (0.0-2.0) Sodium Level 136 MMOL/L (136-145) Potassium Level 4.1 MMOL/L (3.5-5.1) Chloride Level 101 MMOL/L (98-107) Carbon Dioxide Level 21 MMOL/L (21-32) Anion Gap 14 mmol/L (5-15) Blood Urea Nitrogen 12 mg/dL (7-18) Creatinine 0.9 MG/DL (0.55-1.30) Estimat Glomerular Filtration Rate > 60 mL/min (>60) Glucose Level 95 MG/DL (74-106) Calcium Level 9.4 MG/DL (8.5-10.1) Total Bilirubin 0.3 MG/DL (0.2-1.0) Aspartate Amino Transf (AST/SGOT) 30 U/L (15-37) Alanine Aminotransferase (ALT/SGPT) 33 U/L (12-78) Alkaline Phosphatase 117 U/L (46-116) H Total Creatine Kinase 70 U/L (26-308) Creatine Kinase MB 0.5 NG/ML (0.0-3.6) Creatine Kinase MB Relative Index 0.7 Troponin I 0.000 ng/mL (0.000-0.056) 0.000 ng/mL (0.000-0.056) 0.000 ng/mL (0.000-0.056) Total Protein 8.6 G/DL (6.4-8.2) H Albumin 3.8 G/DL (3.4-5.0) Globulin 4.8 g/dL Albumin/Globulin Ratio 0.8 (1.0-2.7) L Urine Opiates Screen Negative (NEGATIVE) Urine Barbiturates Screen Negative (NEGATIVE) Phencyclidine (PCP) Screen Negative (NEGATIVE) Urine Amphetamines Screen Negative (NEGATIVE) Urine Benzodiazepines Screen Negative (NEGATIVE) Urine Cocaine Screen Negative (NEGATIVE) Urine Marijuana (THC) Screen Positive (NEGATIVE) H D-Dimer 0.35 mg/L FEU (0.00-0.49) Prothrombin Time 9.7 SEC (9.30-11.50) Prothromb Time International Ratio 0.9 (0.9-1.1) Activated Partial Thromboplast Time 32 SEC (23-33) Magnesium Level 2.1 MG/DL (1.8-2.4) C-Reactive Protein, Quantitative 0.6 mg/dL (0.00-0.90) Triglycerides Level 86 MG/DL (30-150) Cholesterol Level 221 MG/DL (< 200) H LDL Cholesterol 122 mg/dL (<100) H HDL Cholesterol 90 MG/DL (40-60) H Cholesterol/HDL Ratio 2.5 (3.3-4.4) L Thyroid Stimulating Hormone (TSH) 2.134 uiU/mL (0.358-3.740) Height (Feet): 5 Height (Inches): 6.00 Weight (Pounds): 182 Medications Current Medications Medications (Trade) Dose Ordered Sig/Hao Route PRN Reason Start Time Stop Time Status Last Admin Dose Admin Acetaminophen (Tylenol) 650 mg Q4H PRN ORAL FEVER 11/13/18 16:00 12/13/18 15:59 Acetaminophen/ Hydrocodone Bitart ([place] 5/325) 1 tab Q6H PRN ORAL severe pain 11/13/18 16:00 11/20/18 15:59 Albuterol/ Ipratropium (Albuterol/ Ipratropium) 3 ml Q4H PRN HHN Shortness of Breath 11/13/18 16:00 11/18/18 15:59 Aspirin (ASA) 162 mg DAILY ORAL 11/14/18 09:00 12/14/18 08:59 11/14/18 08:38 Diazepam (Valium) 5 mg TIDPRN PRN ORAL spasm 11/13/18 16:00 11/20/18 15:59 Diltiazem HCl (Cardizem) 10 mg Q1H PRN IV heart rate more than 120, 11/13/18 16:00 12/13/18 15:59 Enalaprilat (Vasotec) 2.5 mg Q6H PRN IV sbp more than 160 11/13/18 16:00 12/13/18 15:59 Gadobutrol (Gadavist) 7.5 mmol NOW PRN IV Radiology Procedure 11/14/18 18:45 11/16/18 18:38 Gadobutrol (Gadavist) 7.5 mmol NOW PRN IV Radiology Procedure 11/14/18 18:45 11/17/18 18:38 Heparin Sodium (Porcine) (Heparin 5000 units/ml) 5,000 units EVERY 12 HOURS SUBQ 11/13/18 21:00 12/13/18 20:59 11/13/18 21:46 Ketorolac Tromethamine (Toradol 30mg) 30 mg Q6H PRN IV moderate pain ( 4-6) 11/13/18 16:00 11/18/18 15:59 Levetiracetam (Keppra) 500 mg EVERY 12 HOURS ORAL 11/13/18 21:00 12/13/18 20:59 11/14/18 08:37 Lorazepam (Ativan 2mg/ml 1ml) 1 mg Q4H PRN IV For Anxiety 11/14/18 09:45 11/21/18 09:44 Morphine Sulfate (Morphine Sulfate) 2 mg Q4H PRN IVP severe Pain (Pain Scale 7-10) 11/13/18 16:00 11/20/18 15:59 11/14/18 06:03 Nitroglycerin (Ntg) 0.4 mg Q5M PRN SL Prn Chest Pain 11/13/18 16:00 12/13/18 15:59 Ondansetron HCl (Zofran) 4 mg Q6H PRN IVP Nausea & Vomiting 11/13/18 16:00 12/13/18 15:59 Polyethylene Glycol (Miralax) 17 gm DAILYPRN PRN ORAL Constipation 11/13/18 16:00 12/13/18 15:59 Temazepam (Restoril) 15 mg HSPRN PRN ORAL Insomnia 11/13/18 16:00 11/20/18 15:59 11/13/18 21:44 Tramadol HCl (Ultram) 50 mg Q6H PRN ORAL MODERATE PAIN 11/13/18 16:00 11/20/18 15:59 Assessment/Plan Problem List: (1) ACS (acute coronary syndrome) ICD Codes: I24.9 - Acute ischemic heart disease, unspecified SNOMED: 016242274 (2) Costochondritis ICD Codes: M94.0 - Chondrocostal junction syndrome [[place]] SNOMED: 66788011 (3) History of seizure ICD Codes: Z87.898 - Personal history of other specified conditions SNOMED: 158050646 (4) Migraine headache ICD Codes: G43.909 - Migraine, unspecified, not intractable, without status migrainosus SNOMED: 61872429 Assessment/Plan serial EKG, troponin, echo neuro evaluation symptomatic treatment dvt prophylaxis. Oralia Bryan MD Nov 14, 2018 11:16
--- NOTE | 2018-11-14 11:45 | Consultation ---
DATE OF CONSULTATION: 11/13/2018 NEUROLOGY CONSULTATION CONSULTING PHYSICIAN: Chung Sarah M.D. CHIEF COMPLAINT: This is the first [facility] admission for this 53-year-old lady who is an woman, who is admitted with increasing headache and not feeling well today. I was asked to see her because of her headache and seizures. The patient beginning in August or September of 2018 had a seizure. She had no aura with the seizures. She was at work on the day of seizure and was unconscious probably for more than 5 minutes. Afterwards, she had a bad headache, had fecal and urinary incontinence, also confused and tired. She went to the ER where she was put in the hospital. The patient saw Dr. Tariq, a neurologist and she had a CT scan of her brain, however, results of which were not known. The patient was not started on any medication at discharge. The patient had an EEG at [facility], the results of which are not known. The patient has had over time difficulty with sleeping. This causes irritability and some stress at work. Her last seizure occurred on 09/01/2018, she had generalized clonic-tonic movements, afterwards had myalgia, but no incontinence. She has been feeling tired, but again . She went to the emergency room at that time. She was started on Keppra 500 mg p.o. b.i.d., she headache, increased irritability. The patient's headaches are generalized come and go on the left side of her ear and has no nausea or vomiting. they occur in the a.m. The patient had another seizure on Monday, again without aura and a headache occuring on Monday. The patient was brought to the emergency room. She went to work on Monday, went to the ER, and then today, she saw Dr. Geoffrey Ayala. The patient had laboratory data. Her CBC, hemoglobin of 15.6, white count of 6400, normochromic normocytic indices. Chemistries were normal. She has an elevated alkaline phosphatase. Total creatine kinase of 170. Total protein was slightly high at 8.3, albumin 3.9. Her toxic screen was negative except for marijuana. The patient was started on aspirin and heparin 5000 units b.i.d. hydrocodone, tramadol 50 mg q.6 h., albuterol, nitroglycerin 0.4 mg, acetaminophen, ketorolac, morphine sulfate, p.r.n., polyethylene glycol, Zofran 4 mg p.r.n., clonazepam p.r.n. insomnia, diltiazem for heart rate more than 120, prochlorperazine 10 mg. MEDICATIONS: Outpatient medications, see the chart. PAST MEDICAL HISTORY/ILLNESSES: 1. . 2. Lumbar radiculopathy. 3. Urinary tract infection in the past which she denies. 4. Low back pain, etiology unknown, possible radiculopathy. 5. Lower GI and upper GI bleed. 6. Contusion of chest wall and left shoulder. 7. Contact dermatitis and eczema. 8. Possible colitis and abdominal pain. ALLERGIES: No known allergies. HABITS: See above. SOCIAL HISTORY: She is has 3 children in good health. SURGERIES: She had tubal at 19 years and 3 regular pregnancies. FAMILY HISTORY: Her father of cancer, type unknown. Mother wad murdered. Her brother of cirrhosis of liver. REVIEW OF SYSTEMS: Her appetite is poor. She has lost about 10 lbs. She weighed 112 pounds in August. The 10 review of systems was negative except for increased irritability from the medications. Cardiovascular, she has chest pain which is sharp. PHYSICAL EXAMINATION: GENERAL: She is a well-developed, well-nourished, overweight, irritable woman. VITAL SIGNS: Blood pressure is 139/103, respirations 20, heart rate is 80 and regular, SpO2 of 99%. NECK: She has no tenderness,no limitation of motion. Carotids are +2 without any bruits. LUNGS: Clear to auscultation. CARDIOVASCULAR: pmi was not felt. The patient had normal S1 and S2 physiologicaly split. ABDOMEN: Bowel sounds are intact. There is has diffuse tenderness. No masses or organomegaly noted. BACK: No tenderness in the lumbar spine and upper back to percussion. EXTREMITIES: Peripheral pulses in the upper and lower extremities are +2 and dorsalis pedis pulse. There is no edema. NEUROLOGIC: Mental status: Judgment, the judgment is normal but is irritable irritable. Intellect, similarities mildly abstract. Orientation to time, she knew it is 11/13/2018. She knew she was at the hospital in the second floor. She was oriented to person. Language function, was normal. Comprehension and repetition were intact. She can spell world backwards without difficulty. There is no right or left confusion or finger agnosia. CRANIAL NERVE EXAMINATION: CRANIAL NERVE II: Visual hyde are intact to confrontation. Fundi were not very well visualized. CRANIAL NERVES III, IV AND : Extraocular motility is full. Pupils are approximately 4mm round and reactive to light. CRANIAL NERVE V: Facial sensation is intact to fine touch. cranial nerve 7 5/5 bilaterally. CRANIAL NERVE VIII: Auditory acuity is intact bilaterally. CRANIAL NERVE IX AND X The palate was elevated in the midline. CRANIAL NERVE XI: Sternocleidomastoid strength 5/5. CRANIAL NERVE XII: Tongue protrudes in the midline without fasciculations or atrophy. MUSCULOSKELETAL: Muscle bulk and tone are normal. Strength 5/5 proximal and distally without pronator drift. Reflexes are +2. toes down going. coordination is normal. gait is normal. sensory testing proprioception, fine touch and pin prick were normal. Vibration not tested. 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 I could not get any history of partial complex seizure. their is no abscess or stroke on the MRI scan of the brain,an avm will need to be excluded. seizure, she will need MRI with gadolinium of the brain and it is . There is a focal headache in the right occipital area. She probably does not have dissection of the vertebral artery on that side. The patient only has serum magnesium level at this time. I do not think she needs a lumbar puncture. She does have problems with the Keppra.She wants to several other anticonvulsants on the list that I gave her before she decides on changing medication. Tegretol, Trileptal, Dilantin, Lamictal, and Lyrica would probably be the best choices. Lyrica would be the easiest to use and probably the safest. Topamax can also treat her migraine along with Lyrica and/or Neurontin. PLAN: 1. Serum magnesium level. 2. Get EEG, awake and asleep. 3. MRI scan with gadolinium of the brain, MRA of the brain, MRA of the neck. 4. Sedimentation rate. 5. Seizure precautions. 6. Continue Keppra. 7. We will get lumbar puncture. 8. I will speak about this case . Chung Sarah MD DR: Mercedes JOB#: [id number] CC: Chung Sarah M.D. MTDD
[2018-11-14] MEDS ORDERED: LORazepam Inj 2mg/ml 1ml IV SCH (12:00)
--- NOTE | 2018-11-14 13:58 | NUR ---
MRI BRAIN POST AND MRA BRAIN AND NECK COMPLETED
--- NOTE | 2018-11-14 14:59 | Diagnostic Imaging Report ---
Indication: Seizure Technique: The head was imaged in a 1.5 Lyn magnet. Sequences obtained include Gadolinium-enhanced axial and coronal T1 FLAIR and coronal T1 FSPGR through the hippocampus. Comparison: None Size contour and configuration of the cortical sulci and basal cisterns and ventricles are normal on the images obtained. There is no abnormal enhancement of the brain or meninges identified. The hippocampal gyrus appears symmetric and normal. Note that a T2 FLAIR sequence was also obtained in the coronal plane on yesterday's examination and showed no evidence of asymmetry or abnormal signal to suggest mesial temporal sclerosis. IMPRESSION: Negative evaluation
--- NOTE | 2018-11-14 15:05 | Diagnostic Imaging Report ---
Indication: Seizure. Severe headache Technique: Study was performed in a 1.5 Lyn magnet. Gadolinium-enhanced MR angiography of the extracranial portions of both carotid arteries performed from the thoracic arch to the skull base. Maximum intensity projection images displayed in different projections. Comparison: None Findings: Right carotid: No significant carotid stenosis is identified. Left carotid: No significant stenosis is identified. Vertebral arteries below the skull base appear unremarkable. The visualized part of the aortic arch is unremarkable. There is a shared origin of the left common carotid artery and innominate artery. IMPRESSION: Normal gadolinium-enhanced MRA of the neck
--- NOTE | 2018-11-14 15:06 | Diagnostic Imaging Report ---
Indication: Seizure headache Technique: 3-D [id number] of the brain Comparison: None Findings: No significant stenosis, vascular malformation, or aneurysm is identified. Flow-related enhancement of the major intracranial arteries demonstrated including the anterior, middle, and posterior cerebral arteries. Impression: Negative MRA of the brain
--- NOTE | 2018-11-14 16:00 | Progress Note ---
DATE: 11/14/2018 SUBJECTIVE: This is a 53-year-old female patient with sepsis. She came here rule out chest pain, but she still has a lot of anxiety, depression, and mood lability worsened by stress of her medical illness. That is why she does require daily psychiatric consultation. MENTAL STATUS EXAMINATION: This patient is a 53-year-old female. She is calm and cooperative. Denies auditory or visual hallucinations or delusions. Denies . Insight and judgment is fair. DIAGNOSIS: Diagnosis major depressive disorder, mild, recurrent, without psychotic features. PLAN: Remeron 15 mg at bedtime and Vistaril 50 mg every q.4 h. p.r.n. anxiety and agitation. Provided with 20 minutes of reality-based supportive psychotherapy. Chart reviewed. Discussed with staff. Assessed in her room. Balbina Campo M.D. DR: HONG JOB#: [id number] CC:
--- NOTE | 2018-11-14 17:18 | Cardiology Report ---
APPROVED REPORT EXAM: Two-dimensional and M-mode echocardiogram with Doppler and color Doppler. INDICATION Left ventricular function M-Mode DIMENSIONS IVSd0.9 (0.7-1.1cm)Left Atrium (MM)2.5 (1.6-4.0cm) LVDd4.7 (3.5-5.6cm)Aortic Root3.0 (2.0-3.7cm) PWd1.3 (0.7-1.1cm)Aortic Cusp Exc.1.7 (1.5-2.0cm) LVDs2.8 (2.5-4.0cm) PWs1.4 cm Normal left ventricular chamber size, systolic function and wall motion. Left ventricular ejection fraction estimated to be 60-65 %. Borderline mild left ventricular hypertrophy by 2-D. No evidence of pericardial effusion. Mild left atrial enlargement. Right cardiac chamber sizes are within normal limits. Focal aortic valve sclerosis with adequate cusp excursion. Thickened mitral valve leaflets with normal excursion. Mitral annulus and aortic root calcification. Pulmonic valve not well visualized. Normal tricuspid valve structure. IVC dilated at 2.1 cm with slight physiologic collapse suggestive of increased RA pressure. A color flow and spectral Doppler study was performed and revealed: Trace to mild mitral regurgitation. Mitral inflow indicates normal left ventricular diastolic function. Trace tricuspid regurgitation. Tricuspid systolic velocities suggests peak right ventricular systolic pressure of 17 mmHg. Mild pulmonic regurgitation present.
--- NOTE | 2018-11-14 17:51 | General Progress Note ---
Progress Note Progress Note s. no seizures or headache.eeg not done mri-mra all normal. ms can spell world backwards o o. see above cranial nerves and muscle exam normal a. focal seizure with secondary generalization etiology unclear.will increase keppra to 1500 mg a day. p. as above and ativan0.5mg @h.s. Chung Dasilva md, MD Nov 14, 2018 17:51
--- NOTE | 2018-11-14 18:04 | Cardiology Report ---
APPROVED REPORT EKG Measurement Heart [id number] Normal sinus rhythm Possible Left atrial enlargement Anterior infarct, age undetermined Abnormal ECG
--- NOTE | 2018-11-14 18:34 | NUR ---
CASE MANAGEMENT: REVIEW / PRESENTED TO ED FROM HOME CC: CHEST PAIN 05/18 . HEADACHE SI: ACS . SEIZURE T 98.5 HR 105 RR 23 BP 125/84 SAT 96% ROOM AIR TOX: + THC IS: ASA PO X1 NS IVF BOLUS X1 TORADOL IV X1 BENADRYL IV X1 COMPAZINE IV X1 PATIENT ADMITTED TO TELEMETRY UNIT 11/13/2018 DCP: PATIENT IS FROM HOME
[2018-11-14] MEDS ORDERED: Gadavist 7.5mMol/7.5ml vial IV PRN ×2 (18:45)
--- NOTE | 2018-11-14 19:15 | History and Physical Report ---
DATE OF ADMISSION: 11/13/2018 TIME SEEN: 4 p.m. CONSULTANTS: 1. Oralia Bryan M.D. 2. Aquilino Galeas M.D. 3. 4. Balbina Campo M.D. CHIEF COMPLAINT: Insomnia, migraine headaches, chest pain, depression. BRIEF HISTORY: This is a 53-year-old female, who came to my office yesterday complaining very agitated, anxious, complaining of no sleep for a week, has severe headaches and slight chest pain, sent to [facility], diagnosed with the above, admitted to telemetry floor for further care. She did get some sedation and got couple hours of sleep and feeling much better. Currently calm, slightly improved, still very anxious, no complaint. REVIEW OF SYSTEMS: Slight chest pain. Slight short of breath. No nausea, vomiting, or diarrhea. PAST MEDICAL HISTORY: Includes insomnia, migraine headache, chest pain, depression. PAST SURGICAL HISTORY: None. MEDICATIONS: Include Gadavist, lorazepam, aspirin, levetiracetam, heparin, diazepam, hydrocodone, tramadol, albuterol, ketorolac, morphine, temazepam, enalapril, diltiazem. ALLERGIES: Denies. SOCIAL HISTORY: Positive smoking. No alcohol. No intravenous drug abuse. FAMILY HISTORY: Noncontributory. PHYSICAL EXAMINATION: GENERAL: Calm in bed, oriented x3, no acute distress. VITAL SIGNS: Temperature is 97 degrees, pulse 87, respirations 18, blood pressure 107/74. CARDIOVASCULAR: No murmur. LUNGS: Distant and clear. ABDOMEN: Bowel sound positive. Nontender. Nondistended. EXTREMITIES: No cyanosis, clubbing, or edema. NEUROLOGIC: The patient moves all extremities, slightly weak. LABORATORY AND DIAGNOSTIC DATA: CBC is normal. BMP shows alkaline phosphatase 117, otherwise BMP is normal. INR is 0.9. PTT is 32. Urine toxicology is positive for marijuana. ASSESSMENT: 1. Migraine headache. 2. Insomnia. 3. Chest pain. 4. Depression. PLAN: 1. Cardiology followup. 2. Pain control. 3. Neurology followup. 4. Sleeping as needed. 5. Dietary followup. 6. CBC and BMP in the morning. 7. We will continue to follow this patient. Geoffrey Ayala D.O. DR: Abdon JOB#: [id number] CC:
--- NOTE | 2018-11-14 19:35 | NUR ---
HAND-OFF: Report given to MARCELO Miller. Patient in stable condition.
--- NOTE | 2018-11-14 19:40 | NUR ---
NURSE NOTES: patient received. patient in no acute distress at this time. patient complains of no pain at this time. patient IV intact patent and asymptomatic. bed in lowest position and locked. bed rails padded for seizure precaution. bed locked. will continue to monitor.
--- NOTE | 2018-11-14 23:00 | NUR ---
NURSE NOTES: patient is to be transferred to [facility]. patient complains of insomnia and pain. see emar. will continue to monitor.
[2018-11-14] MEDS: LORazepam Inj 2mg/ml 1ml IV PRN (23:13)
--- NOTE | 2018-11-14 23:22 | NUR ---
HAND-OFF: Report given to MARCELO nath. report was endorsed to her. also told her to not tell patient about the results of the EEG that was done and that she should wait for the doctor to talk to her.
--- NOTE | 2018-11-14 23:22 | NUR ---
NURSE NOTES:Patient received from tele by Angela Restrepo patient a/a/ox4 patient c/o pain . pain controlled pain meds with good relief RFA G#20 H/L Patent and intact . patient personal belongings checked and signed . call light within reach . bed in low position at all times . will continue to monitor
--- NOTE | 2018-11-14 23:48 | Cardiology Progress Note ---
Assessment/Plan Assessment/Plan 1. Most likely noncardiac chest pain, likely chest wall trauma during her seizure activities, there are no ischemic changes on a 12-lead electrocardiogram , acute myocardial infarction ruled out. No further cardiac test is required as the patient does not have any risk factors for coronary artery disease. D- dimer was negative. 2. Epilepsy. 3. History of GERD. 4. Sinus tachycardia, resolving. Subjective Subjective Sinus rhythm at rate of 97. Objective Last 24 Hour Vital Signs Date Time Temp Pulse Resp B/P (MAP) Pulse Ox O2 Delivery O2 Flow Rate FiO2 11/14/18 21:00 Room Air 11/14/18 20:25 Room Air 21 11/14/18 20:25 99 Room Air 21 11/14/18 20:25 97 20 Room Air 21 11/14/18 20:00 97.4 84 17 162/91 (114) 97 11/14/18 16:00 85 11/14/18 16:00 97.7 92 18 100/69 (79) 98 11/14/18 12:00 88 11/14/18 12:00 97.8 87 18 107/74 (85) 98 11/14/18 09:00 Room Air 11/14/18 08:00 98.6 90 18 131/80 (97) 98 11/14/18 08:00 78 11/14/18 06:35 97.8 11/14/18 04:00 97.8 84 18 130/93 (105) 97 11/14/18 04:00 66 11/14/18 00:00 97.7 76 19 135/73 (93) 98 11/14/18 00:00 92 Intake and Output 11/13/18 11/14/18 18:59 06:59 Intake Total 290 ml Balance 290 ml Intake Oral 290 ml # Voids 2 2D Echo: LVEF 60-65%, Mild LAE, RVSP 17 mmhg Laboratory Tests Test 11/14/18 05:30 White Blood Count 5.6 K/UL (4.8-10.8) Red Blood Count 4.13 M/UL (4.20-5.40) L Hemoglobin 12.9 G/DL (12.0-16.0) Hematocrit 39.2 % (37.0-47.0) Mean Corpuscular Volume 95 FL (80-99) Mean Corpuscular Hemoglobin 31.3 PG (27.0-31.0) H Mean Corpuscular Hemoglobin Concent 33.0 G/DL (32.0-36.0) Red Cell Distribution Width 13.8 % (11.6-14.8) Platelet Count 279 K/UL (150-450) Mean Platelet Volume 5.4 FL (6.5-10.1) L Neutrophils (%) (Auto) 55.0 % (45.0-75.0) Lymphocytes (%) (Auto) 35.2 % (20.0-45.0) Monocytes (%) (Auto) 7.7 % (1.0-10.0) Eosinophils (%) (Auto) 1.4 % (0.0-3.0) Basophils (%) (Auto) 0.8 % (0.0-2.0) Prothrombin Time 9.7 SEC (9.30-11.50) Prothromb Time International Ratio 0.9 (0.9-1.1) Activated Partial Thromboplast Time 32 SEC (23-33) Magnesium Level 2.1 MG/DL (1.8-2.4) Troponin I 0.000 ng/mL (0.000-0.056) C-Reactive Protein, Quantitative 0.6 mg/dL (0.00-0.90) Triglycerides Level 86 MG/DL (30-150) Cholesterol Level 221 MG/DL (< 200) H LDL Cholesterol 122 mg/dL (<100) H HDL Cholesterol 90 MG/DL (40-60) H Cholesterol/HDL Ratio 2.5 (3.3-4.4) L Thyroid Stimulating Hormone (TSH) 2.134 uiU/mL (0.358-3.740) Objective HEENT: Atraumatic and normocephalic. Anicteric. Pupils are equal, round, and reactive to light and accommodation. Extraocular muscles intact. NECK: JVP less than 5 cm. No carotid bruit. Carotid upstrokes 2+ bilaterally. CARDIOVASCULAR: Normal S1 and S2. Regular rate and rhythm. No murmurs, gallops, or rubs. PMI is at fourth intercostal space in the midclavicular line. LUNGS: Clear to auscultation bilaterally. ABDOMEN: Soft, nontender, and nondistended. No hepatosplenomegaly. Positive bowel sounds. EXTREMITIES: No evidence of edema, clubbing, or cyanosis. Aquilino Galeas MD Nov 14, 2018 23:48
[2018-11-15] VITALS: BP 142/74
[2018-11-15 04:00] VITALS: BP 109/69
--- NOTE | 2018-11-15 07:45 | NUR ---
NURSE NOTES: Received patient from Emelina ZAMARRIPA, patient is up in bed, no distress noted, patient eating breakfast, patient c/o pain and requesting medication, patient also reported she would like something to help her sleep today as her restoril did not work last night, RN will contact MD, will continue to monitor with Renée ROBERTSON.
--- NOTE | 2018-11-15 07:47 | NUR ---
NURSE NOTES: Received patient from MARCELO Tarango. Patient is awake, in bed, eating breakfast. Patient is not in respiratory distress, in room air. Bed is in the lowest position, locked, call light is within reach. Will continue to monitor patient.
--- NOTE | 2018-11-15 07:47 | NUR ---
HAND-OFF: Report given to Durga Silvestre Patient in stable condition.
[2018-11-15 07:53] LABS: BASOPHILS % (AUTO) 1.2 % (0.0-2.0); EOSINOPHILS % (AUTO) 1.3 % (0.0-3.0); HEMATOCRIT 40.4 % (37.0-47.0); HEMOGLOBIN 13.2 G/DL (12.0-16.0); LYMPHOCYTES % (AUTO) 27.1 % (20.0-45.0); MEAN CORPUSCULAR VOLUME 96 FL (80-99); MONOCYTES % (AUTO) 9.2 % (1.0-10.0); NEUTROPHILS % (AUTO) 61.1 % (45.0-75.0); PLATELET COUNT 274 K/UL (150-450); RED CELL DISTRIBUTION WIDTH 14.2 % (11.6-14.8); WHITE BLOOD COUNT 5.2 K/UL (4.8-10.8)
[2018-11-15 08:00] VITALS: BP 117/81
[2018-11-15] MEDS: Heparin 5000 units/ml inj SUBQ SCH ×2 (08:04→21:00)
[2018-11-15] MEDS: Aspirin Baby 81mg ORAL SCH (08:08)
[2018-11-15] MEDS: Morphine Sulfate 2mg/ml Inj IVP PRN ×3 (08:09→18:27)
[2018-11-15 08:11] LABS: ANION GAP 7 mmol/L (5-15); BLOOD UREA NITROGEN 13 mg/dL (7-18); CARBON DIOXIDE 25 MMOL/L (21-32); CHLORIDE 105 MMOL/L (98-107); POTASSIUM 4.1 MMOL/L (3.5-5.1); SODIUM 137 MMOL/L (136-145)
--- NOTE | 2018-11-15 08:29 | NUR ---
[facility] PT NOTE CONSULT RECEIVED, XOCHILT COMPLTED, PATIENT AT BASELINE LEVEL OF FUNCTION. PATIENT STATES SHE IS FINE, WALKS FINE. PATIENT CURRENTLY IS NOT IN NEED OF PHYSICAL THERAPY. NO SKILLED NEEDS. PLEASE RECONSULT IF CHANGE IN PATEINTS MOBILITY STATUS. MEE ROSALES PT DPT Addendum: 11/15/18 at 0829 by MEE ROSALES PT Amended: Links added.
--- NOTE | 2018-11-15 11:50 | Pulmonology Progress Note ---
Assessment/Plan Problems: (1) ACS (acute coronary syndrome) (2) Costochondritis (3) History of seizure (4) Migraine headache Assessment/Plan serial EKG, troponin, echo neuro evaluation reviewed, all MRI's and MRA's reviewed symptomatic treatment Add klonipin dvt prophylaxis. Subjective ROS Limited/Unobtainable: No Constitutional: Reports: no symptoms HEENT: Repors: no symptoms Respiratory: Reports: no symptoms Allergies: Coded Allergies: No Known Allergies (Unverified , 11/13/18) Objective Last 24 Hour Vital Signs Date Time Temp Pulse Resp B/P (MAP) Pulse Ox O2 Delivery O2 Flow Rate FiO2 11/15/18 08:58 98.1 11/15/18 08:00 Room Air 11/15/18 08:00 98.0 93 18 117/81 (93) 99 11/15/18 04:00 98.1 95 18 109/69 (82) 98 11/15/18 00:00 98.4 88 18 142/74 (96) 98 11/14/18 23:01 98.3 87 18 120/77 (91) 98 11/14/18 21:00 Room Air 11/14/18 20:25 Room Air 21 11/14/18 20:25 99 Room Air 21 11/14/18 20:25 97 20 Room Air 21 11/14/18 20:00 97.4 84 17 162/91 (114) 97 11/14/18 16:00 85 11/14/18 16:00 97.7 92 18 100/69 (79) 98 11/14/18 12:00 88 11/14/18 12:00 97.8 87 18 107/74 (85) 98 Intake and Output 11/14/18 11/15/18 19:00 07:00 Intake Total 1500 ml 780 ml Balance 1500 ml 780 ml Intake Oral 1500 ml 780 ml # Voids 4 3 General Appearance: WD/WN HEENT: normocephalic Respiratory/Chest: chest wall non-tender, lungs clear Breasts: no masses Cardiovascular: normal peripheral pulses, normal rate Abdomen: normal bowel sounds, soft, non tender, no scars Extremities: no clubbing 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 Lymphatic: no neck adenopathy Laboratory Tests 11/15/18 07:25: White Blood Count 5.2, Red Blood Count 4.20, Hemoglobin 13.2, Hematocrit 40.4, Mean Corpuscular Volume 96, Mean Corpuscular Hemoglobin 31.5H, Mean Corpuscular Hemoglobin Concent 32.7, Red Cell Distribution Width 14.2, Platelet Count 274, Mean Platelet Volume 5.8L, Neutrophils (%) (Auto) 61.1, Lymphocytes (%) (Auto) 27.1, Monocytes (%) (Auto) 9.2, Eosinophils (%) (Auto) 1.3, Basophils (%) (Auto ) 1.2, Sodium Level 137, Potassium Level 4.1, Chloride Level 105, Carbon Dioxide Level 25, Anion Gap 7, Blood Urea Nitrogen 13, Creatinine 1.0, Estimat Glomerular Filtration Rate > 60, Glucose Level 85, Calcium Level 9.0, Troponin I 0.000 Current Medications Medications (Trade) Dose Ordered Sig/Hao Route PRN Reason Start Time Stop Time Status Last Admin Dose Admin Acetaminophen (Tylenol) 650 mg Q4H PRN ORAL FEVER 11/13/18 16:00 12/13/18 15:59 Acetaminophen/ Hydrocodone Bitart ([place] 5/325) 1 tab Q6H PRN ORAL severe pain 11/13/18 16:00 11/20/18 15:59 Albuterol/ Ipratropium (Albuterol/ Ipratropium) 3 ml Q4H PRN HHN Shortness of Breath 11/13/18 16:00 11/18/18 15:59 Aspirin (ASA) 162 mg DAILY ORAL 11/14/18 09:00 12/14/18 08:59 11/15/18 08:08 Diazepam (Valium) 5 mg TIDPRN PRN ORAL spasm 11/13/18 16:00 11/20/18 15:59 Diltiazem HCl (Cardizem) 10 mg Q1H PRN IV heart rate more than 120, 11/13/18 16:00 12/13/18 15:59 Enalaprilat (Vasotec) 2.5 mg Q6H PRN IV sbp more than 160 11/13/18 16:00 12/13/18 15:59 Gadobutrol (Gadavist) 7.5 mmol NOW PRN IV Radiology Procedure 11/14/18 18:45 11/16/18 18:38 Gadobutrol (Gadavist) 7.5 mmol NOW PRN IV Radiology Procedure 11/14/18 18:45 11/17/18 18:38 Heparin Sodium (Porcine) (Heparin 5000 units/ml) 5,000 units EVERY 12 HOURS SUBQ 11/13/18 21:00 12/13/18 20:59 11/13/18 21:46 Ketorolac Tromethamine (Toradol 30mg) 30 mg Q6H PRN IV moderate pain ( 4-6) 11/13/18 16:00 11/18/18 15:59 Levetiracetam (Keppra) 500 mg EVERY 12 HOURS ORAL 11/13/18 21:00 12/13/18 20:59 11/15/18 08:08 Lorazepam (Ativan 2mg/ml 1ml) 1 mg Q4H PRN IV For Anxiety 11/14/18 09:45 11/21/18 09:44 11/14/18 23:13 Mirtazapine (Remeron) 15 mg BEDTIME ORAL 11/15/18 21:00 12/15/18 20:59 Morphine Sulfate (Morphine Sulfate) 2 mg Q4H PRN IVP severe Pain (Pain Scale 7-10) 11/13/18 16:00 11/20/18 15:59 11/15/18 08:28 Nitroglycerin (Ntg) 0.4 mg Q5M PRN SL Prn Chest Pain 11/13/18 16:00 12/13/18 15:59 Ondansetron HCl (Zofran) 4 mg Q6H PRN IVP Nausea & Vomiting 11/13/18 16:00 12/13/18 15:59 Polyethylene Glycol (Miralax) 17 gm DAILYPRN PRN ORAL Constipation 11/13/18 16:00 12/13/18 15:59 Temazepam (Restoril) 15 mg HSPRN PRN ORAL Insomnia 11/13/18 16:00 11/20/18 15:59 11/13/18 21:44 Tramadol HCl (Ultram) 50 mg Q6H PRN ORAL MODERATE PAIN 11/13/18 16:00 11/20/18 15:59 Oralia Bryan MD Nov 15, 2018 11:50
[2018-11-15 12:00] VITALS: BP 124/88
--- NOTE | 2018-11-15 12:48 | General Progress Note ---
Assessment/Plan Problem List: (1) Insomnia ICD Codes: G47.00 - Insomnia, unspecified SNOMED: 071814217 (2) Depressed ICD Codes: F32.9 - Major depressive disorder, single episode, unspecified SNOMED: 48380775 (3) Seizure ICD Codes: R56.9 - Unspecified convulsions SNOMED: 21281632 (4) History of seizure ICD Codes: Z87.898 - Personal history of other specified conditions SNOMED: 831843892 (5) Migraine headache ICD Codes: G43.909 - Migraine, unspecified, not intractable, without status migrainosus SNOMED: 95484735 Status: unchanged Assessment/Plan pt diet pain control cbc neuro psyc f/u cbc bmp am Subjective Constitutional: Reports: weakness Allergies: Coded Allergies: No Known Allergies (Unverified , 11/13/18) All Systems: reviewed and negative except above Subjective poor sleepy, head ache 04/17 Objective Last 24 Hour Vital Signs Date Time Temp Pulse Resp B/P (MAP) Pulse Ox O2 Delivery O2 Flow Rate FiO2 11/15/18 12:00 98.9 80 18 124/88 (100) 99 11/15/18 08:58 98.1 11/15/18 08:00 Room Air 11/15/18 08:00 98.0 93 18 117/81 (93) 99 11/15/18 04:00 98.1 95 18 109/69 (82) 98 11/15/18 00:00 98.4 88 18 142/74 (96) 98 11/14/18 23:01 98.3 87 18 120/77 (91) 98 11/14/18 21:00 Room Air 11/14/18 20:25 Room Air 21 11/14/18 20:25 99 Room Air 21 11/14/18 20:25 97 20 Room Air 21 11/14/18 20:00 97.4 84 17 162/91 (114) 97 11/14/18 16:00 85 11/14/18 16:00 97.7 92 18 100/69 (79) 98 Intake and Output 11/14/18 11/15/18 19:00 07:00 Intake Total 1500 ml 780 ml Balance 1500 ml 780 ml Intake Oral 1500 ml 780 ml # Voids 4 3 Laboratory Tests 11/15/18 07:25: White Blood Count 5.2, Red Blood Count 4.20, Hemoglobin 13.2, Hematocrit 40.4, Mean Corpuscular Volume 96, Mean Corpuscular Hemoglobin 31.5H, Mean Corpuscular Hemoglobin Concent 32.7, Red Cell Distribution Width 14.2, Platelet Count 274, Mean Platelet Volume 5.8L, Neutrophils (%) (Auto) 61.1, Lymphocytes (%) (Auto) 27.1, Monocytes (%) (Auto) 9.2, Eosinophils (%) (Auto) 1.3, Basophils (%) (Auto ) 1.2, Sodium Level 137, Potassium Level 4.1, Chloride Level 105, Carbon Dioxide Level 25, Anion Gap 7, Blood Urea Nitrogen 13, Creatinine 1.0, Estimat Glomerular Filtration Rate > 60, Glucose Level 85, Calcium Level 9.0, Troponin I 0.000 Height (Feet): 5 Height (Inches): 6.00 Weight (Pounds): 182 General Appearance: alert EENT: normal ENT inspection Neck: normal alignment Cardiovascular: normal peripheral pulses, normal rate, regular rhythm Respiratory/Chest: chest wall non-tender, lungs clear, normal breath sounds Abdomen: normal bowel sounds, non tender, soft Extremities: normal inspection Edema: no edema noted Arm (L), no edema noted Arm (R), no edema noted Leg (L), no edema noted Leg (R), no edema noted Pedal (L), no edema noted Pedal (R), no edema noted Generalized Neurologic: responsive, motor weakness Skin: normal pigmentation, warm/dry Geoffrey Ayala DO Nov 15, 2018 12:48
[2018-11-15] MEDS: LORazepam Inj 2mg/ml 1ml IV PRN (13:57)
--- NOTE | 2018-11-15 15:40 | NUR ---
*-* INSURANCE *-* ALL CLINICALS AND REVIEWS HAVE BEEN FAXED TO: B[employer]S CRISTINA LAMBERT P:[phone] OPT. 6 F:[phone]
[2018-11-15 16:00] VITALS: BP 114/79
--- NOTE | 2018-11-15 19:35 | NUR ---
HAND-OFF: Report given to Cassia ROBERTSON.
--- NOTE | 2018-11-15 19:45 | Progress Note ---
DATE: 11/15/2018 SUBJECTIVE: This is a 53-year-old female patient with chest pain. The patient continues to have depression worsened by stress of her medical illness that is why her attending physician has requested daily psychiatric consultation. MENTAL STATUS EXAMINATION: The patient is a 53-year-old female. Appearance is well groomed. Attitude is slightly irritable. . Affect guarded, restricted. Intellect is good. Orientation x4. Speech is normal volume. Thought process, linear goal directed. Thought content, denies auditory or visual hallucinations or delusions. Insight and judgment is fair. DIAGNOSIS: Major depressive disorder, mild, recurrent, without psychotic features. PLAN: Treat her with Remeron 15 mg at bedtime. Provided with 20 minutes of reality based supportive psychotherapy. Chart reviewed. Discussed with staff. Seen and assessed at bedside. Balbina Campo M.D. DR: Mariana JOB#: [id number] CC:
--- NOTE | 2018-11-15 19:51 | NUR ---
NURSE NOTES: Received patient awake,alert,verbal,resting in bed,comfortable.
[2018-11-15 20:00] VITALS: BP 126/91
--- NOTE | 2018-11-15 23:01 | NUR ---
HAND-OFF: Report given to MARCELO Torres/MARCELO Tomlin.
--- NOTE | 2018-11-15 23:15 | NUR ---
NURSE NOTES: Received pt in stable condition from MARCELO Maldonado. Pt A&Ox4, VSS, and in no apparent distress. Will continue to monitor.
--- NOTE | 2018-11-15 23:30 | Cardiology Progress Note ---
Assessment/Plan Assessment/Plan 1. Noncardiac chest pain, likely chest wall trauma during her seizure activities , there are no ischemic changes on a 12-lead electrocardiogram, acute myocardial infarction ruled out. No further cardiac test is required as the patient does not have any risk factors for coronary artery disease. D-dimer was negative. 2. Epilepsy. 3. History of GERD. 4. Sinus tachycardia, resolved. Subjective Subjective Transferred to the non-telemetry unit. No cardiac events noted. Objective Last 24 Hour Vital Signs Date Time Temp Pulse Resp B/P (MAP) Pulse Ox O2 Delivery O2 Flow Rate FiO2 11/15/18 21:01 Room Air 11/15/18 20:00 98.3 80 18 126/91 (103) 96 11/15/18 18:57 99.2 11/15/18 16:00 99.2 18 18 114/79 (91) 98 11/15/18 12:00 98.9 80 18 124/88 (100) 99 11/15/18 08:00 Room Air 11/15/18 08:00 98.0 93 18 117/81 (93) 99 11/15/18 04:00 98.1 95 18 109/69 (82) 98 11/15/18 00:00 98.4 88 18 142/74 (96) 98 Intake and Output 11/14/18 11/15/18 18:59 06:59 Intake Total 1500 ml 780 ml Balance 1500 ml 780 ml Intake Oral 1500 ml 780 ml # Voids 4 3 2D Echo: LVEF 60-65%, Mild LAE, RVSP 17 mmHg Laboratory Tests Test 11/15/18 07:25 White Blood Count 5.2 K/UL (4.8-10.8) Red Blood Count 4.20 M/UL (4.20-5.40) Hemoglobin 13.2 G/DL (12.0-16.0) Hematocrit 40.4 % (37.0-47.0) Mean Corpuscular Volume 96 FL (80-99) Mean Corpuscular Hemoglobin 31.5 PG (27.0-31.0) H Mean Corpuscular Hemoglobin Concent 32.7 G/DL (32.0-36.0) Red Cell Distribution Width 14.2 % (11.6-14.8) Platelet Count 274 K/UL (150-450) Mean Platelet Volume 5.8 FL (6.5-10.1) L Neutrophils (%) (Auto) 61.1 % (45.0-75.0) Lymphocytes (%) (Auto) 27.1 % (20.0-45.0) Monocytes (%) (Auto) 9.2 % (1.0-10.0) Eosinophils (%) (Auto) 1.3 % (0.0-3.0) Basophils (%) (Auto) 1.2 % (0.0-2.0) Sodium Level 137 MMOL/L (136-145) Potassium Level 4.1 MMOL/L (3.5-5.1) Chloride Level 105 MMOL/L (98-107) Carbon Dioxide Level 25 MMOL/L (21-32) Anion Gap 7 mmol/L (5-15) Blood Urea Nitrogen 13 mg/dL (7-18) Creatinine 1.0 MG/DL (0.55-1.30) Estimat Glomerular Filtration Rate > 60 mL/min (>60) Glucose Level 85 MG/DL (74-106) Calcium Level 9.0 MG/DL (8.5-10.1) Troponin I 0.000 ng/mL (0.000-0.056) Objective HEENT: Atraumatic and normocephalic. Anicteric. Pupils are equal, round, and reactive to light and accommodation. Extraocular muscles intact. NECK: JVP less than 5 cm. No carotid bruit. Carotid upstrokes 2+ bilaterally. CARDIOVASCULAR: Normal S1 and S2. Regular rate and rhythm. No murmurs, gallops, or rubs. PMI is at fourth intercostal space in the midclavicular line. LUNGS: Clear to auscultation bilaterally. ABDOMEN: Soft, nontender, and nondistended. No hepatosplenomegaly. Positive bowel sounds. EXTREMITIES: No evidence of edema, clubbing, or cyanosis. Aquilino Galeas MD Nov 15, 2018 23:30
[2018-11-16 05:00] VITALS: BP 104/69
--- NOTE | 2018-11-16 07:14 | NUR ---
HAND-OFF: Report given to DALLIN Sethi.
--- NOTE | 2018-11-16 07:51 | NUR ---
NURSE NOTES: received patient A/A/Ox4, ambulatory. No c/o pain/discomfort noted. No c/o N/V. Tolerating diet well. kept bed in the lowest position. call light is within reach. will cont to monitor.
[2018-11-16 07:54] LABS: EOSINOPHILS % (AUTO) 1.5 % (0.0-3.0); HEMATOCRIT 43.6 % (37.0-47.0); HEMOGLOBIN 13.8 G/DL (12.0-16.0); LYMPHOCYTES % (AUTO) 28.7 % (20.0-45.0); MEAN CORPUSCULAR VOLUME 98 FL (80-99); MONOCYTES % (AUTO) 8.2 % (1.0-10.0); NEUTROPHILS % (AUTO) 60.6 % (45.0-75.0); PLATELET COUNT 279 K/UL (150-450); RED BLOOD COUNT 4.44 M/UL (4.20-5.40); RED CELL DISTRIBUTION WIDTH 14.3 % (11.6-14.8); WHITE BLOOD COUNT 5.9 K/UL (4.8-10.8)
[2018-11-16 08:20] LABS: ANION GAP 9 mmol/L (5-15); BLOOD UREA NITROGEN 12 mg/dL (7-18); CALCIUM 9.2 MG/DL (8.5-10.1); CARBON DIOXIDE 24 MMOL/L (21-32); CHLORIDE 106 MMOL/L (98-107); CREATININE 0.9 MG/DL (0.55-1.30); POTASSIUM 4.1 MMOL/L (3.5-5.1); SODIUM 138 MMOL/L (136-145)
[2018-11-16] MEDS: Aspirin Baby 81mg ORAL SCH (08:26)
[2018-11-16] MEDS: Heparin 5000 units/ml inj SUBQ SCH (08:27)
[2018-11-16 08:37] VITALS: BP 129/92
[2018-11-16] MEDS: Morphine Sulfate 2mg/ml Inj IVP PRN (08:45)
--- NOTE | 2018-11-16 09:00 | NUR ---
NURSE NOTES: offered the pain meds oral form first before she asked for morphine IVP, stated that it is not effective for her and also was concerned with the side effects for ultram. made dr enciso aware. VSS. will cont to monitor.
--- NOTE | 2018-11-16 09:30 | General Progress Note ---
Assessment/Plan Problem List: (1) Insomnia ICD Codes: G47.00 - Insomnia, unspecified SNOMED: 938591989 (2) Depressed ICD Codes: F32.9 - Major depressive disorder, single episode, unspecified SNOMED: 64605624 (3) Seizure ICD Codes: R56.9 - Unspecified convulsions SNOMED: 23739879 (4) History of seizure ICD Codes: Z87.898 - Personal history of other specified conditions SNOMED: 668406149 (5) Migraine headache ICD Codes: G43.909 - Migraine, unspecified, not intractable, without status migrainosus SNOMED: 25618283 Status: stable, progressing Assessment/Plan pt diet pain control cbc neuro psyc f/u dc if clear Subjective Constitutional: Reports: weakness Allergies: Coded Allergies: No Known Allergies (Unverified , 11/13/18) All Systems: reviewed and negative except above Subjective slept ok, feeling better, sl head ache Objective Last 24 Hour Vital Signs Date Time Temp Pulse Resp B/P (MAP) Pulse Ox O2 Delivery O2 Flow Rate FiO2 11/16/18 09:15 97.9 11/16/18 08:37 97.9 95 21 129/92 (104) 96 11/16/18 05:00 97.5 72 20 104/69 (81) 100 11/15/18 21:01 Room Air 11/15/18 20:00 98.3 80 18 126/91 (103) 96 11/15/18 16:00 99.2 18 18 114/79 (91) 98 11/15/18 12:00 98.9 80 18 124/88 (100) 99 Intake and Output 11/15/18 11/16/18 19:00 07:00 Intake Total 350 ml Balance 350 ml Intake Oral 350 ml # Voids 5 # Bowel Movements 1 Laboratory Tests 11/16/18 07:18: White Blood Count 5.9, Red Blood Count 4.44, Hemoglobin 13.8, Hematocrit 43.6, Mean Corpuscular Volume 98, Mean Corpuscular Hemoglobin 31.1H, Mean Corpuscular Hemoglobin Concent 31.7L, Red Cell Distribution Width 14.3, Platelet Count 279, Mean Platelet Volume 5.4L, Neutrophils (%) (Auto) 60.6, Lymphocytes (%) (Auto) 28.7, Monocytes (%) (Auto) 8.2, Eosinophils (%) (Auto) 1.5, Basophils (%) (Auto ) 1.0, Sodium Level 138, Potassium Level 4.1, Chloride Level 106, Carbon Dioxide Level 24, Anion Gap 9, Blood Urea Nitrogen 12, Creatinine 0.9, Estimat Glomerular Filtration Rate > 60, Glucose Level 82, Calcium Level 9.2 Height (Feet): 5 Height (Inches): 6.00 Weight (Pounds): 182 General Appearance: alert EENT: normal ENT inspection Neck: normal alignment Cardiovascular: normal peripheral pulses, normal rate, regular rhythm Respiratory/Chest: chest wall non-tender, lungs clear, normal breath sounds Abdomen: normal bowel sounds, non tender, soft Extremities: normal inspection Edema: no edema noted Arm (L), no edema noted Arm (R), no edema noted Leg (L), no edema noted Leg (R), no edema noted Pedal (L), no edema noted Pedal (R), no edema noted Generalized Neurologic: responsive, motor weakness Skin: normal pigmentation, warm/dry Geoffrey Ayala DO Nov 16, 2018 09:30
[2018-11-16 12:00] VITALS: BP 123/82
--- NOTE | 2018-11-16 12:26 | NUR ---
NURSE NOTES: left voicemessage to Dr. Galeas and Dr ivan for clearance upon discharge. awaiting for a call back. Addendum: 11/16/18 at 1240 by ERON GAR LVN left voicemessage to Dr. Sarah for clearance as well. awaits for a callback.
--- NOTE | 2018-11-16 13:00 | NUR ---
NURSE NOTES: faxed EEG result to DR. Sarah @ [phone] and will called giorgi auguste for RX.
[2018-11-16] MEDS ORDERED: CLONAZEPAM1 M2 ORAL (13:12)
[2018-11-16] MEDS ORDERED: MIRTAZAPINE15 M3 ORAL (13:12)
--- NOTE | 2018-11-16 13:13 | Pulmonology Progress Note ---
Assessment/Plan Problems: (1) ACS (acute coronary syndrome) (2) Costochondritis (3) History of seizure (4) Migraine headache Assessment/Plan slept very well symptomatic treatment Add klonipin dvt prophylaxis. Subjective ROS Limited/Unobtainable: No Constitutional: Reports: no symptoms HEENT: Repors: no symptoms Respiratory: Reports: no symptoms Allergies: Coded Allergies: No Known Allergies (Unverified , 11/13/18) Objective Last 24 Hour Vital Signs Date Time Temp Pulse Resp B/P (MAP) Pulse Ox O2 Delivery O2 Flow Rate FiO2 11/16/18 12:00 97.3 89 21 123/82 (96) 98 11/16/18 09:15 97.9 11/16/18 09:00 Room Air 11/16/18 08:37 97.9 95 21 129/92 (104) 96 11/16/18 05:00 97.5 72 20 104/69 (81) 100 11/15/18 21:01 Room Air 11/15/18 20:00 98.3 80 18 126/91 (103) 96 11/15/18 16:00 99.2 18 18 114/79 (91) 98 Intake and Output 11/15/18 11/16/18 19:00 07:00 Intake Total 350 ml Balance 350 ml Intake Oral 350 ml # Voids 5 # Bowel Movements 1 General Appearance: WD/WN HEENT: normocephalic, PERRL Respiratory/Chest: chest wall non-tender, lungs clear Breasts: no masses Cardiovascular: normal peripheral pulses, normal rate Abdomen: normal bowel sounds, no organomegaly Genitourinary: normal external genitalia Extremities: no clubbing Skin: no rash Laboratory Tests 11/16/18 07:18: White Blood Count 5.9, Red Blood Count 4.44, Hemoglobin 13.8, Hematocrit 43.6, Mean Corpuscular Volume 98, Mean Corpuscular Hemoglobin 31.1H, Mean Corpuscular Hemoglobin Concent 31.7L, Red Cell Distribution Width 14.3, Platelet Count 279, Mean Platelet Volume 5.4L, Neutrophils (%) (Auto) 60.6, Lymphocytes (%) (Auto) 28.7, Monocytes (%) (Auto) 8.2, Eosinophils (%) (Auto) 1.5, Basophils (%) (Auto ) 1.0, Sodium Level 138, Potassium Level 4.1, Chloride Level 106, Carbon Dioxide Level 24, Anion Gap 9, Blood Urea Nitrogen 12, Creatinine 0.9, Estimat Glomerular Filtration Rate > 60, Glucose Level 82, Calcium Level 9.2 Current Medications Medications (Trade) Dose Ordered Sig/Hao Route PRN Reason Start Time Stop Time Status Last Admin Dose Admin Acetaminophen (Tylenol) 650 mg Q4H PRN ORAL FEVER 11/13/18 16:00 12/13/18 15:59 Acetaminophen/ Hydrocodone Bitart ([place] 5/325) 1 tab Q6H PRN ORAL severe pain 11/13/18 16:00 11/20/18 15:59 Albuterol/ Ipratropium (Albuterol/ Ipratropium) 3 ml Q4H PRN HHN Shortness of Breath 11/13/18 16:00 11/18/18 15:59 Aspirin (ASA) 162 mg DAILY ORAL 11/14/18 09:00 12/14/18 08:59 11/16/18 08:26 Clonazepam (KlonoPIN) 1 mg BEDTIME ORAL 11/15/18 21:00 11/22/18 20:59 11/15/18 22:00 Diazepam (Valium) 5 mg TIDPRN PRN ORAL spasm 11/13/18 16:00 11/20/18 15:59 Diltiazem HCl (Cardizem) 10 mg Q1H PRN IV heart rate more than 120, 11/13/18 16:00 12/13/18 15:59 Enalaprilat (Vasotec) 2.5 mg Q6H PRN IV sbp more than 160 11/13/18 16:00 12/13/18 15:59 Gadobutrol (Gadavist) 7.5 mmol NOW PRN IV Radiology Procedure 11/14/18 18:45 11/16/18 18:38 Gadobutrol (Gadavist) 7.5 mmol NOW PRN IV Radiology Procedure 11/14/18 18:45 11/17/18 18:38 Heparin Sodium (Porcine) (Heparin 5000 units/ml) 5,000 units EVERY 12 HOURS SUBQ 11/13/18 21:00 12/13/18 20:59 11/13/18 21:46 Ketorolac Tromethamine (Toradol 30mg) 30 mg Q6H PRN IV moderate pain ( 4-6) 11/13/18 16:00 11/18/18 15:59 Levetiracetam (Keppra) 500 mg EVERY 12 HOURS ORAL 11/13/18 21:00 12/13/18 20:59 11/16/18 08:26 Lorazepam (Ativan 2mg/ml 1ml) 1 mg Q4H PRN IV For Anxiety 11/14/18 09:45 11/21/18 09:44 11/15/18 13:57 Mirtazapine (Remeron) 15 mg BEDTIME ORAL 11/15/18 21:00 12/15/18 20:59 11/15/18 22:00 Morphine Sulfate (Morphine Sulfate) 2 mg Q4H PRN IVP severe Pain (Pain Scale 7-10) 11/13/18 16:00 11/20/18 15:59 11/16/18 08:45 Nitroglycerin (Ntg) 0.4 mg Q5M PRN SL Prn Chest Pain 11/13/18 16:00 12/13/18 15:59 Ondansetron HCl (Zofran) 4 mg Q6H PRN IVP Nausea & Vomiting 11/13/18 16:00 12/13/18 15:59 Polyethylene Glycol (Miralax) 17 gm DAILYPRN PRN ORAL Constipation 11/13/18 16:00 12/13/18 15:59 Temazepam (Restoril) 15 mg HSPRN PRN ORAL Insomnia 11/13/18 16:00 11/20/18 15:59 11/13/18 21:44 Tramadol HCl (Ultram) 50 mg Q6H PRN ORAL MODERATE PAIN 11/13/18 16:00 11/20/18 15:59 Oralia Bryan MD Nov 16, 2018 13:13
--- NOTE | 2018-11-16 15:04 | NUR ---
NURSE NOTES: d/c home with instructions. Rx faxed to [facility]. personal belongings reviewed and noted. no acute resp distress noted. no c/o pain or discomfort. ambulates with steady gait. appetite is good. awaiting for Rx meds to be delivered. Addendum: 11/16/18 at 1516 by ERON GAR LVN removed IV heplock. In stable condition.
--- NOTE | 2018-11-16 15:25 | NUR ---
HAND-OFF: Report given to Ghassan.
--- NOTE | 2018-11-16 15:25 | NUR ---
NURSE NOTES: Patient discharged with family member in stable condition. No complain of N/V or distress. Discharge instruction give to patient and verbalized understanding. Prescription medication and belonging given to patient. IV and ID removed. Patient ambulated out with all personal belongings with steady gait.
--- NOTE | 2018-11-16 15:30 | Electroencephalogram ---
DATE OF PROCEDURE: 11/14/2018 REQUESTING PHYSICIANS: Geoffrey Ayala D.O. & Chung Sarah M.D. READING PHYSICIAN: Daniel Hirsch M.D. PROCEDURE PERFORMED: Electroencephalogram. HISTORY: This EEG was performed on a 53-year-old lady with a history of a focal seizure with secondary generalization. The purpose of this EEG was to better delineate the type of seizure disorder. TECHNICAL NOTE: This EEG was performed on a [employer] Ac[employer] Unit with electrodes placed on the scalp according to the International 10-20 system. [id number] and [id number] montages were used. The EEG was technically satisfactory and was performed in the awake, drowsy, and sleep states. OBSERVATION: In the best awake state, the background activity consisted of 8.5-9 Hz posteriorly predominant well-developed alpha waveforms, which attenuated on eye opening. Drowsiness was characterized by dissolution of the alpha rhythm and the appearance of slow frequencies in the 4-5 Hz theta range. Stage II sleep was characterized by further slowing of the background in the delta and theta range, the presence of vertex waves, and 14 Hz sleep spindles. A few isolated T5 sharp and slow wave discharges were seen during drowsiness. IMPRESSION: This is an abnormal EEG characterized by a few isolated T5 sharp and slow wave discharges seen during drowsiness. COMMENT: This study is consistent with a left posterior temporal epileptogenic focus. Clinical correlation is recommended. Daniel Hirsch M.D., M.S.P.H. Neurologist & Clinical Neurophysiologist DR: SHANNAN JOB#: [id number] MTDD
--- NOTE | 2018-11-16 19:00 | Progress Note ---
DATE: 11/16/2018 SUBJECTIVE: This is a 53-year-old female patient. She has an increased chest pain. That is why she came in rule out chest pain at [facility], but she continues to have some confusion, disorganized thought process, and high levels of depression worsened by stress with medical illness. DIAGNOSIS: Major depressive disorder, mild, recurrent, without psychotic features. PLAN: Treat with Remeron 15 mg at bedtime. Provided with 20 minutes of reality based supportive psychotherapy. Chart reviewed. Discussed with staff. The patient is going for dinner. Balbina Campo M.D. DR: HONG JOB#: [id number] CC:
--- NOTE | 2018-11-17 03:15 | Consultation ---
DATE OF CONSULTATION: NOTE: POOR AUDIO PSYCHOTHERAPY CONSULTATION PROGRESS NOTE TREATING ATTENDING PHYSICIAN: Geoffrey Ayala M.D. HISTORY OF PRESENT ILLNESS: The patient is a 53-year-old female patient. The patient was brought into the hospital for insomnia, migraine headache, chest pain, and depression. The patient has a history of feeling depression and anxiety. For these reasons, she has been referred for psychotherapeutic services. This clinician assessed the patient. The patient states that she has been feeling extremely anxious. She states that she has not been not able to sleep. She has been extremely anxious because of the above. She becomes very agitated . She states that she cannot go to work because she becomes irritable with the coworkers because she feels tired and fatigued. She states that that this is the telling that she has seizures and because of the changes in medications she states that she is having a difficult time sleeping. Her anxiety level has been high. She has been severely depressed. She denies suicidal or homicidal thoughts of ideation. She denies any auditory or visual hallucinations. However, she states that she feels very helpless of her symptoms. She is tearful because of this. The patient is very cooperative and verbal and able to communicate and articulate her thoughts. PAST MEDICAL HISTORY: Includes history of insomnia, migraine headaches, chest pain, and depression. ALLERGIES: The patient has no known drug allergies. SUBSTANCE ABUSE HISTORY: She does smoke cigarettes. She denies any history of alcohol use or illicit substance use. PSYCHIATRIC HISTORY: The patient states that she does not have a history of mental illness. SOCIAL HISTORY: The patient states that she lives independently . Financially sustained through [employer]. MENTAL STATUS EXAMINATION: The patient is alert and oriented to person and place. Mood is anxious. Affect is congruent. Thought process is negative and catastrophic. Poor attention and concentration. Poor insight, judgment, and impulse control. We assessed the patient's mental status. The patient is alert and oriented to person, place, time, and situation. Mood is depressed and anxious. Affect is labile. Thought process, disorganized. Thought content, linear. She has poor attention and concentration. Poor insight, judgment, and impulse control. DIAGNOSES: Generalized anxiety disorder and major depressive disorder, recurrent without psychotic features. This clinician assessed the patient. The patient states that she is having . Provided the patient with supportive psychotherapy . The patient has feelings of anxiety, depression and difficulty sleeping. Today, working on identifying positive , positive coping skills, relaxation exercises, positive communication skills depression and anxiety. . Continue with behavioral management. This clinician has reviewed the patient's chart and discussed treatment with treatment team. . Hector Hathaway PsyD. DR: JAME JOB#: [id number] CC:
--- NOTE | 2018-11-18 12:43 | Discharge Summary ---
Discharge Summary Discharge Summary _ DATE OF ADMISSION: 11/13/2018 DATE OF DISCHARGE: 11/16/2018 DISCHARGED BY: Dr. Ayala REASON FOR ADMISSION: 53 years old female with past medical history of GERD, probable seizure disorder. presented with complaint of severe headache and severe debilitation as a result of it. Patient was not formally diagnosed with epilepsy and had not seen a neurologist. Patient was in another hospital 2 days ago and underwent CAT scan of the head which showed some cerebellar abnormality. Patient did not have MRI. Patient also reported chest pain and severe insomnia. Patient reported sweats at night. Patient thinks that she might go to through menopause. She denied recent illness . She denied fever and chills . She denied nausea ,vomiting . She denied abdominal pain . Upon evaluation vital signs revealed heart rate 102, blood pressure 130/94, pulse oximetry was stable on room air. Laboratory workup revealed no leukocytosis , stable hemoglobin and hematocrit , stable renal parameters and electrolytes. Glucose 95. Stable LFT. Troponin negative. EKG revealed normal sinus rhythm, no acute ischemic changes. Albumin 3.8. Urine toxicology screen was positive for marijuana. Chest x-ray revealed no evidence of acute pathology. CT of the head revealed no mass effect , edema or acute bleeding. Patient was admitted for further management. CONSULTANTS: set up inspector Dr. Galeas neurologist Dr. Sarah pulmonary Dr. Bryan psychiatrist Dr. Campo [facility] COURSE: Patient was admitted to telemetry floor initially. Cardiology closely followed. Serial troponin were negative. EKG revealed sinus rhythm, no acute ischemic changes. Patient was ruled out for acute myocardial infarction. Echocardiogram revealed preserved ejection fraction of 60-65% with borderline left ventricular hypertrophy. No evidence of pericardial effusion. No evidence of wall motion abnormality. Nitroglycerin was provided as needed. Patient was started on antiplatelet therapy with aspirin. Blood pressure was closely monitored and remained stable. Per set up inspector, patient had noncardiac chest pain likely chest wall trauma sustained during seizure episode. No further cardiac test was required, as patient did not have any risk factors for coronary artery disease. D-dimer was negative. Supplemental oxygen provided as needed to keep pulse oximetry above 92%. Pulmonary toilet was on standby. Pulse oximetry was stable on room air, no signs of respiratory distress. Neurology consult was requested. MRI of the brain was negative. MRA of the neck was normal. MRA of the brain was negative as well . Repeated MRI of the brain was negative . EEG was abnormal , consistent with left posterior temporal epileptogenic focus. Seizure precautions were maintained. Per neurologist patient likely had focal seizure with secondary generalization of unclear etiology. Keppra dose was increased to 1500 mg a day. Ativan was on board as needed for breakthrough seizure. TSH was stable. Lipid panel revealed elevated total cholesterol , elevated LDL. Patient was educated on low-fat low-cholesterol diet and therapeutic life style changes. Repeat lipid panel in 3 months. If LDL still elevated, consider starting statin. Pain management was addressed as needed, and pain was controlled. Fall precaution maintained. Patient was working with physical therapist. Psychiatrist closely followed and diagnosed patient with major depressive disorder, mild, recurrent, without psychotic features. Psychiatric medication regimen was optimized. Supportive psychotherapy provided. Patient clinically stabilized and was ready for discharge home. Follow-up with a primary care provider. FINAL DIAGNOSES: Noncardiac chest pain , likely chest wall trauma during seizure activity Possible costochondritis Focal seizures with secondary generalization Migraine headache History of GERD Major depressive disorder , mild, recurrent, without psychotic features. Hyperlipidemia DISCHARGE MEDICATIONS: See Medication Reconciliation list. DISCHARGE INSTRUCTIONS: Patient was discharged home. Follow up with primary care provider in one week. Recommended outpatient follow-up with neurologist for further management of seizure disorder I have been assigned to dictate discharge summary for this account. I was not involved in the patient's management. Shreya Matos NP Nov 18, 2018 12:43
--- NOTE | 2018-11-19 16:15 | Consultation ---
DATE OF CONSULTATION: 11/16/2018 NOTE: INCOMPLETE DICTATION: PSYCHOTHERAPY CONSULTATION PROGRESS NOTE: TREATING ATTENDING: Dr. Geoffrey Ayala HISTORY OF PRESENT ILLNESS: 00:18. The patient is a 53-year-old female patient. The patient was brought into the hospital for insomnia, migraines, chest pain, and depression. The patient has been depressed and helpless. For these reasons, she refers to 00:45. The patient states that she feels very helpless at this time. She states she is feeling depressed and she is having fevers. She does not know how to cope with 00:[address]: ROSA MARIA JOB#: [id number] CC:
== END 2018-11-16 15:25 | disposition home or self-care (01) | DRG 101 ==
LOC: EMR 12:30 → 2E 15:05 → EDBEDREQ 15:17 → 2E 17:54 → 3E 11-14 23:20
DX: G40.409 Other generalized epilepsy and epileptic syndromes, not intractable, without status epilepticus (principal); F33.0 Major depressive disorder, recurrent, mild; G43.009 Migraine without aura, not intractable, without status migrainosus; M94.0 Chondrocostal junction syndrome [Tietze]; R07.89 Other chest pain; E78.5 Hyperlipidemia, unspecified; K21.9 Gastro-esophageal reflux disease without esophagitis; Z72.0 Tobacco use; G47.00 Insomnia, unspecified; R00.0 Tachycardia, unspecified
CPT/HCPCS: 36415; 70450; 70544; 70548; 70551; 70552; 71045; 80048; 80053; 80061; 80299; 80307; 82550; 82553; 83735; 84443; 84484; 85025; 85379; 85610; 85730; 86140; 93005; 93306; 94664; 94760; 95819; 96361; 96374; 96375; 99285; A9585

== ENCOUNTER 2018-12-14 09:52 | Inpatient (IN) | payer BC ==
[~2018-12-14] VITALS: Ht 167.6 cm; Wt 81.6 kg
[~2018-12-14 09:52] MED LIST changes: +CLONAZEPAM1 M2 ORAL; +KEPPRA500 M4 ORAL; +MIRTAZAPINE15 M3 ORAL
[2018-12-14 10:05] VITALS: BP 123/85
--- NOTE | 2018-12-14 10:09 | NUR ---
ED Nurse Note: Patient walked in to ER c/o headache 05/18 and waking up multiple times during night since patient started taking Keppra 500mg by june,. Pt stated she had her first seizure in June, and last seizure was 12/10/2018. per pt, dr Ayala sent pt to ER to be checked up. pt aao x4 and calm. skin clean and intact.
--- NOTE | 2018-12-14 10:27 | NUR ---
[place] [facility] [facility]
[2018-12-14 10:45] LABS: APPEARANCE,URINE CLEAR; BILIRUBIN, URINE NEGATIVE (NEGATIVE); COLOR,URINE PALE YELLOW; GLUCOSE, URINE (UA) NEGATIVE (NEGATIVE); KETONES,URINE NEGATIVE (NEGATIVE); LEUKOCYTE ESTERASE ,URINE 1+ (NEGATIVE); NITRITE,URINE NEGATIVE (NEGATIVE); PH,URINE 5 (4.5-8.0); PROTEIN,URINE NEGATIVE (NEGATIVE); UROBILINOGEN,URINE NORMAL MG/DL (0.0-1.0)
[2018-12-14] MEDS ORDERED: DiphenhydrAMINE 50mg/ml Inj IVP ONE (10:45)
--- NOTE | 2018-12-14 10:46 | Diagnostic Imaging Report ---
Indication: Headaches, seizures Technique: Continuous helical CT scanning of the head was performed without intravenous contrast material. Axial and coronal 5 mm sections were generated. Radiation dose was minimized using automated exposure control Dose: Total Dose Length Product - DLP 1305.[address] Dose Index - CTDIvol(s) 70.38 mGy. Comparison: none Findings: The ventricular system is normal in size and configuration. There is no shift of midline structures. No abnormal extra-axial fluid collections are noted. There is no evidence of intracerebral bleeding. No other abnormal high or low density areas are noted within the brain. Normal dalton-white differentiation. Intact calvarium. The mastoids are clear. Visualized orbits and sinuses are unremarkable. Impression: Normal CT scan of the head without contrast material. The CT scanner at [facility] is accredited by the [employer] and the scans are performed using protocols designed to limit radiation exposure to as low as reasonably achievable to attain images of sufficient resolution adequate for diagnostic evaluation.
[2018-12-14 11:10] LABS: BASOPHILS % (AUTO) 1.4 % (0.0-2.0); EOSINOPHILS % (AUTO) 2.2 % (0.0-3.0); HEMATOCRIT 42.7 % (37.0-47.0); HEMOGLOBIN 13.5 G/DL (12.0-16.0); LYMPHOCYTES % (AUTO) 29.9 % (20.0-45.0); MEAN CORPUSCULAR VOLUME 98 FL (80-99); MONOCYTES % (AUTO) 7.4 % (1.0-10.0); NEUTROPHILS % (AUTO) 59.1 % (45.0-75.0); PLATELET COUNT 338 K/UL (150-450); RED BLOOD COUNT 4.36 M/UL (4.20-5.40); WHITE BLOOD COUNT 7.5 K/UL (4.8-10.8)
[2018-12-14 11:44] LABS: ANION GAP 12 mmol/L (5-15); BLOOD UREA NITROGEN 10 mg/dL (7-18); CALCIUM 9.2 MG/DL (8.5-10.1); CARBON DIOXIDE 23 MMOL/L (21-32); CHLORIDE 105 MMOL/L (98-107); CREATININE 0.8 MG/DL (0.55-1.30); POTASSIUM 4.6 MMOL/L (3.5-5.1); SODIUM 140 MMOL/L (136-145)
[2018-12-14 11:49] LABS: ALANINE AMINOTRANSFERASE 34 U/L (12-78); ALBUMIN 3.5 G/DL (3.4-5.0); ALBUMIN/GLOBULIN RATIO 0.8 (1.0-2.7); ALKALINE PHOSPHATASE 117 U/L (46-116); ASPARTATE AMINO TRANSFERASE 34 U/L (15-37); BILIRUBIN,TOTAL 0.2 MG/DL (0.2-1.0); CREATINE KINASE 66 U/L (26-308)
--- NOTE | 2018-12-14 12:30 | Emergency Room Report ---
History of Present Illness General Chief Complaint: General Complaint Source: Patient, Medical Record Present Illness HPI This patient states that ever since she was diagnosed with seizures and placed on Keppra in July of last year. She states that since that time she has had severe side effects. She states that she has had breakthrough seizures and blue she is having seizures at nighttime. She states that she is unable to sleep and has severe insomnia. She states she is getting headaches daily. She associates this with the onset of her seizures and with starting Keppra. The patient is very upset and stated she is horribly depressed. She states prior to the end of last year she did not have seizures. She states that she has been admitted to the hospital multiple times for seizures. She's undergone extensive testing and evaluation by neurology. She states she cannot tolerate the headaches and the insomnia and ongoing seizures any longer. She denies recent illness. She is fever or chills. She is neck pain. She denies cough or congestion. She denies chest pain or shortness of breath. She denies abdominal pain. She has no other complaints. Allergies: Coded Allergies: No Known Allergies (Unverified , 11/13/18) Patient History Past Medical History: see triage record, seizures Social History: Denies: smoking, alcohol use, drug use Last Menstrual Period: 3 months ago Reviewed Nursing Documentation: PMH: Agreed; PSxH: Agreed Nursing Documentation-PMH Past Medical History: No History, Except For Hx Cardiac Problems: No Hx Cancer: No Hx Gastrointestinal Problems: No Hx Neurological Problems: Yes Hx Seizures: Yes Review of Systems All Other Systems: negative except mentioned in HPI Physical Exam Vital Signs Date Time Temp Pulse Resp B/P (MAP) Pulse Ox O2 Delivery O2 Flow Rate FiO2 12/14/18 10:00 98.1 103 16 123/88 96 Room Air Sp02 EP Interpretation: reviewed, normal General Appearance: no apparent distress, alert, GCS 15, non-toxic Head: normocephalic, atraumatic Eyes: bilateral eye normal inspection, bilateral eye PERRL ENT: hearing grossly normal, normal pharynx, no angioedema, normal voice Neck: full range of motion, supple/symm/no masses Respiratory: chest non-tender, lungs clear, normal breath sounds, no respiratory distress, no retraction, no accessory muscle use, speaking full sentences Cardiovascular #1: regular rate, rhythm, no edema Gastrointestinal: normal bowel sounds, non tender, soft, non-distended, no guarding, no rebound Rectal: deferred Musculoskeletal: back normal, gait/station normal, normal range of motion, non- tender Neurologic: alert, oriented x3, responsive, motor strength/tone normal, sensory intact, speech normal Psychiatric: judgement/insight normal, memory normal, mood/affect normal, no suicidal/homicidal ideation Skin: normal color, no rash, warm/dry, well hydrated Medical Decision Making Diagnostic Impression: Primary Impression: Intractable pain Additional Impressions: Poorly controlled seizures Status migrainosus ER Course This patient presents for status migrainous. She also has all over body pain, insomnia and severe depression. Patient also has poorly controlled seizures and is having difficulty tolerating the Keppra medications that she is placed on. The patient states she is unable to do even simple activities of daily living. Overall, the patient's laboratory workup is unremarkable. CT of the head is negative. The patient is admitted for intractable pain, poorly controlled seizures and status migrainous. Laboratory Tests Test 12/14/18 10:30 White Blood Count 7.5 K/UL (4.8-10.8) Red Blood Count 4.36 M/UL (4.20-5.40) Hemoglobin 13.5 G/DL (12.0-16.0) Hematocrit 42.7 % (37.0-47.0) Mean Corpuscular Volume 98 FL (80-99) Mean Corpuscular Hemoglobin 31.1 PG (27.0-31.0) H Mean Corpuscular Hemoglobin Concent 31.7 G/DL (32.0-36.0) L Red Cell Distribution Width 14.0 % (11.6-14.8) Platelet Count 338 K/UL (150-450) Mean Platelet Volume 5.4 FL (6.5-10.1) L Neutrophils (%) (Auto) 59.1 % (45.0-75.0) Lymphocytes (%) (Auto) 29.9 % (20.0-45.0) Monocytes (%) (Auto) 7.4 % (1.0-10.0) Eosinophils (%) (Auto) 2.2 % (0.0-3.0) Basophils (%) (Auto) 1.4 % (0.0-2.0) Urine Color Pale yellow Urine Appearance Clear Urine pH 5 (4.5-8.0) Urine Specific [place] 1.015 (1.005-1.035) Urine Protein Negative (NEGATIVE) Urine Glucose (UA) Negative (NEGATIVE) Urine Ketones Negative (NEGATIVE) Urine Blood Negative (NEGATIVE) Urine Nitrite Negative (NEGATIVE) Urine Bilirubin Negative (NEGATIVE) Urine Urobilinogen Normal MG/DL (0.0-1.0) Urine Leukocyte Esterase 1+ (NEGATIVE) H Urine RBC 0 /HPF (0 - 2) Urine WBC 0-2 /HPF (0 - 2) Urine Squamous Epithelial Cells Occasional /LPF Urine Bacteria Occasional /HPF (NONE) Urine HCG, Qualitative Negative (NEGATIVE) Sodium Level 140 MMOL/L (136-145) Potassium Level 4.6 MMOL/L (3.5-5.1) Chloride Level 105 MMOL/L (98-107) Carbon Dioxide Level 23 MMOL/L (21-32) Anion Gap 12 mmol/L (5-15) Blood Urea Nitrogen 10 mg/dL (7-18) Creatinine 0.8 MG/DL (0.55-1.30) Estimate Glomerular Filtration Rate > 60 mL/min (>60) Glucose Level 69 MG/DL (74-106) L Calcium Level 9.2 MG/DL (8.5-10.1) Total Bilirubin 0.2 MG/DL (0.2-1.0) Aspartate Amino Transferase (AST) 34 U/L (15-37) Alanine Aminotransferase (ALT) 34 U/L (12-78) Alkaline Phosphatase 117 U/L (46-116) H Total Creatine Kinase 66 U/L (26-308) Total Protein 7.9 G/DL (6.4-8.2) Albumin 3.5 G/DL (3.4-5.0) Globulin 4.4 g/dL Albumin/Globulin Ratio 0.8 (1.0-2.7) L Urine Opiates Screen Negative (NEGATIVE) Urine Barbiturates Screen Negative (NEGATIVE) Phencyclidine (PCP) Screen Negative (NEGATIVE) Urine Amphetamines Screen Negative (NEGATIVE) Urine Benzodiazepines Screen Negative (NEGATIVE) Urine Cocaine Screen Negative (NEGATIVE) Urine Marijuana (THC) Screen Positive (NEGATIVE) H EKG Diagnostic Results Rate: normal Rhythm: NSR ST Segments: no acute changes Rhythm Strip Diag. Results EP Interpretation: yes Rate: 90's Rhythm: NSR, no PVC's, no ectopy CT/MRI/US Diagnostic Results CT/MRI/US Diagnostic Results : Imaging Test Ordered: CT head Impression No acute findings. Specifically no intracranial bleed, mass effect or edema. See official report. Last Vital Signs Date Time Temp Pulse Resp B/P (MAP) Pulse Ox O2 Delivery O2 Flow Rate FiO2 12/14/18 10:05 97.8 105 19 123/85 100 Room Air Status: improved Disposition: ADMITTED INPATIENT Condition: Stable Referrals: Geoffrey Ayala DO (PCP) Vickie Montague DO Dec 14, 2018 12:30
[2018-12-14 12:52] VITALS: BP 128/59
[2018-12-14] MEDS ORDERED: Mylanta II UD 30ml ORAL PRN (13:00)
[2018-12-14] MEDS ORDERED: Dextrose 50% 25ml Syringe IV PRN (13:15)
--- NOTE | 2018-12-14 13:50 | NUR ---
ED Nurse Note: Report given to MARCELO Topete
--- NOTE | 2018-12-14 14:00 | NUR ---
NURSE NOTES: Received report from Yohannes ROBERTSON. Pt was admitted from ER via [facility]. Tele monitor placed on pt, displays normal sinus rhythm. Pt is awake, alert, oriented x4, on room air with no respiratory distress. Denies SOB, chest pain or any other discomfort at this time. IV access on right AC #20G, saline lock, patent/intact. Skin is intact. Pt is ambulatory with steady gait. Pt's belonging's list checked and signed in front of pt. Pt is placed on seizure precaution, side rails padded, suction and oxygen set up. Call light is placed within easy reach, bed in lowest position, two side rails up, brakes engaged. Will continue to monitor pt and follow plan of care per [place] orders and protocol.
--- NOTE | 2018-12-14 14:04 | Diagnostic Imaging Report ---
Indication: Bilateral leg pain Technique: Grayscale and duplex images of the bilateral lower extremity veins Comparison: none Findings: Bilaterally, grayscale and duplex images demonstrate no evidence of intraluminal thrombus. Normal phasic Doppler waveforms, demonstrating normal augmentation response and no evidence of valvular insufficiency. Normal compressibility of all deep venous structures. Greater saphenous veins are patent at the orifices Impression: Negative for lower extremity deep venous thrombosis
[2018-12-14 14:20] VITALS: BP 129/70
--- NOTE | 2018-12-14 14:20 | NUR ---
ED Nurse Note: pt left unit with 1 RN and 1 dye lab technician in stable condition.
--- NOTE | 2018-12-14 14:54 | Consultation ---
History of Present Illness General Date patient seen: Dec 14, 2018 Chief Complaint: General Complaint Present Illness HPI 53 y/o F with hx of SEizure disorder (dx Jul 2018) on Keppra presents to ED on with breakthrough seizures, insomnia, daily headaches. She reports headaches since starting Keppra Denied f/c, neck pain, cough, congestion, CP, SOB, abd pain, vision changes, UE or LE weakness/numbness/tingling Born and raise in [place]. Has always live in [place]. No travel outside of [facility]. 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 No pets at home. No head trauma or surgeries Allergies: Coded Allergies: No Known Allergies (Unverified , 11/13/18) Medication History Scheduled Cephalexin* (Keflex*), 500 MG ORAL TID Clonazepam (Clonazepam), 1 MG ORAL BEDTIME Famotidine (Pepcid), 20 MG ORAL DAILY Hydrocodone/Acetaminophen (Lortab 7.5-325 mg Tablet), 1 EACH PO Q6HR Lactulose (Lactulose*), 30 ML ORAL BID Levetiracetam (Keppra), 500 MG ORAL TID, (Reported) Mirtazapine* (Mirtazapine*), 15 MG ORAL BEDTIME No Known Medications* (NKM - No Known Medications*), 0 ., (Reported) Permethrin (Permethrin), 1 APPLIC TOPIC ONCE Scheduled PRN Diazepam* (Valium*), 5 MG ORAL TID PRN for spasm Hydrocodone Bit/Acetaminophen 5-325* ([place] 5-325*), 1 TAB ORAL Q6H PRN for For Pain Hydrocodone Bit/Acetaminophen 5-325* ([place] 5-325*), 1 TAB ORAL Q6H PRN for For Pain Hydrocodone/Acetaminophen 7.5-325* (Hydrocodon-Acetaminoph 7.5-325*), 1 TAB ORAL Q6H PRN for For Pain Tramadol Hcl* (Ultram*), 50 MG ORAL Q6H PRN for For Pain Patient History Healthcare decision maker Resuscitation status Advanced Directive on File Patient History Narrative Pmhx: as above Shx: Denies: smoking, alcohol use, drug use Fhx: non contributory Review of Systems All Other Systems: negative except mentioned in HPI Physical Exam Physical Exam Narrative General Appearance: no apparent distress, alert non-toxic Head: normocephalic, atraumatic Eyes: bilateral eye normal inspection, bilateral eye PERRL ENT: hearing grossly normal, normal pharynx, no angioedema, normal voice Neck: full range of motion, supple/symm/no masses Respiratory: chest non-tender, lungs clear, normal breath sounds, no respiratory distress, no retraction, no accessory muscle use, speaking full sentences Cardiovascular : regular rate, rhythm, no edema Gastrointestinal: normal bowel sounds, non tender, soft, non-distended, no guarding, no rebound Musculoskeletal: back normal, gait/station normal, normal range of motion, non- tender Neurologic: alert, oriented x3, responsive, motor strength/tone normal, sensory intact, speech normal Skin: normal color, no rash, warm/dry, well hydrated Last 24 Hour Vital Signs Date Time Temp Pulse Resp B/P (MAP) Pulse Ox O2 Delivery O2 Flow Rate FiO2 12/14/18 12:52 90 128/59 12/14/18 10:05 97.8 105 19 123/85 100 Room Air 12/14/18 10:05 105 19 Room Air 12/14/18 10:00 98.1 103 16 123/88 96 Room Air Laboratory Tests Test 12/14/18 10:30 White Blood Count 7.5 K/UL (4.8-10.8) Red Blood Count 4.36 M/UL (4.20-5.40) Hemoglobin 13.5 G/DL (12.0-16.0) Hematocrit 42.7 % (37.0-47.0) Mean Corpuscular Volume 98 FL (80-99) Mean Corpuscular Hemoglobin 31.1 PG (27.0-31.0) H Mean Corpuscular Hemoglobin Concent 31.7 G/DL (32.0-36.0) L Red Cell Distribution Width 14.0 % (11.6-14.8) Platelet Count 338 K/UL (150-450) Mean Platelet Volume 5.4 FL (6.5-10.1) L Neutrophils (%) (Auto) 59.1 % (45.0-75.0) Lymphocytes (%) (Auto) 29.9 % (20.0-45.0) Monocytes (%) (Auto) 7.4 % (1.0-10.0) Eosinophils (%) (Auto) 2.2 % (0.0-3.0) Basophils (%) (Auto) 1.4 % (0.0-2.0) Urine Color Pale yellow Urine Appearance Clear Urine pH 5 (4.5-8.0) Urine Specific [place] 1.015 (1.005-1.035) Urine Protein Negative (NEGATIVE) Urine Glucose (UA) Negative (NEGATIVE) Urine Ketones Negative (NEGATIVE) Urine Blood Negative (NEGATIVE) Urine Nitrite Negative (NEGATIVE) Urine Bilirubin Negative (NEGATIVE) Urine Urobilinogen Normal MG/DL (0.0-1.0) Urine Leukocyte Esterase 1+ (NEGATIVE) H Urine RBC 0 /HPF (0 - 2) Urine WBC 0-2 /HPF (0 - 2) Urine Squamous Epithelial Cells Occasional /LPF Urine Bacteria Occasional /HPF (NONE) Urine HCG, Qualitative Negative (NEGATIVE) Sodium Level 140 MMOL/L (136-145) Potassium Level 4.6 MMOL/L (3.5-5.1) Chloride Level 105 MMOL/L (98-107) Carbon Dioxide Level 23 MMOL/L (21-32) Anion Gap 12 mmol/L (5-15) Blood Urea Nitrogen 10 mg/dL (7-18) Creatinine 0.8 MG/DL (0.55-1.30) Estimat Glomerular Filtration Rate > 60 mL/min (>60) Glucose Level 69 MG/DL (74-106) L Calcium Level 9.2 MG/DL (8.5-10.1) Total Bilirubin 0.2 MG/DL (0.2-1.0) Aspartate Amino Transf (AST/SGOT) 34 U/L (15-37) Alanine Aminotransferase (ALT/SGPT) 34 U/L (12-78) Alkaline Phosphatase 117 U/L (46-116) H Total Creatine Kinase 66 U/L (26-308) Total Protein 7.9 G/DL (6.4-8.2) Albumin 3.5 G/DL (3.4-5.0) Globulin 4.4 g/dL Albumin/Globulin Ratio 0.8 (1.0-2.7) L Urine Opiates Screen Negative (NEGATIVE) Urine Barbiturates Screen Negative (NEGATIVE) Phencyclidine (PCP) Screen Negative (NEGATIVE) Urine Amphetamines Screen Negative (NEGATIVE) Urine Benzodiazepines Screen Negative (NEGATIVE) Urine Cocaine Screen Negative (NEGATIVE) Urine Marijuana (THC) Screen Positive (NEGATIVE) H Height (Feet): 5 Height (Inches): 6.00 Weight (Pounds): 180 Medications Current Medications Medications (Trade) Dose Ordered Sig/Hao Route PRN Reason Start Time Stop Time Status Last Admin Dose Admin Acetaminophen (Tylenol) 650 mg Q4H PRN ORAL T>100.5 12/14/18 13:00 01/13/19 12:59 Al Hydroxide/Mg Hydroxide (Mylanta II) 30 ml Q6H PRN ORAL dyspepsia 12/14/18 13:00 01/13/19 12:59 Dextrose (Dextrose 50%) 25 ml Q30M PRN IV Hypoglycemia 12/14/18 13:15 01/13/19 13:01 Dextrose (Dextrose 50%) 50 ml Q30M PRN IV hypoglycemia 12/14/18 13:15 01/13/19 13:14 Famotidine (Pepcid) 20 mg DAILY ORAL 12/15/18 09:00 01/14/19 08:59 Lactulose (Cephulac) 20 gm BID ORAL 12/14/18 18:00 01/13/19 17:59 Levetiracetam (Keppra) 500 mg Q8HR ORAL 12/14/18 14:00 01/13/19 13:59 12/14/18 14:23 Lorazepam (Ativan 2mg/ml 1ml) 0.5 mg Q4H PRN IV For Anxiety 12/14/18 13:00 12/21/18 12:59 Mirtazapine (Remeron) 15 mg BEDTIME ORAL 12/14/18 21:00 01/13/19 20:59 Morphine Sulfate (Morphine Sulfate) 1 mg Q4H PRN IVP PAIN 4-10 12/14/18 13:00 12/21/18 12:59 Ondansetron HCl (Zofran) 4 mg Q6H PRN IVP Nausea & Vomiting 12/14/18 13:00 01/13/19 12:59 Polyethylene Glycol (Miralax) 17 gm HSPRN PRN ORAL Constipation 12/14/18 21:00 01/13/19 20:59 Zolpidem Tartrate (Ambien) 5 mg HSPRN PRN ORAL Insomnia 12/14/18 21:00 12/21/18 20:59 Assessment/Plan Assessment/Plan Abx: none Assessment: Afebrile No leukocytosis Breakthrough Seizures/Headache- unclear etiology- CT head and recent MRI brain with no abscess or parasitic lesions (ie cysticercosis)- No signs or symptoms that suggest an infectious etiology -12/14 CT head: Normal CT scan of the head without contrast material. -11/14 MRI brain w/ : Negative evaluation -11/13 MRI brain wo: Negative MRI brain without contrast. [facility] Plan: -Continue to monitor off abx -Neuro eval -?repeat MRI w/ -f/u cx -Monitor CBC/CMP, temperatures -HIV ab, RPR Thank you for this consultation. Will continue to follow along with you. Discussed with MARCELO. Aleta Chinchilla M.D. Dec 14, 2018 14:54
[2018-12-14] MEDS: Lactulose 20gm/30ml UDC ORAL SCH (18:00)
--- NOTE | 2018-12-14 18:30 | NUR ---
NURSE NOTES: Pt ambulated to the nurse's station requesting to leave the unit and go outside the building to smoke cigarette. Charge nurse and Dr Ayala informed. Per food and nutrition services supervisor, pt will not have smoking privileges due to nonsmoking-hospital policy. Dr Ayala informed and order for Nicotine patch transcribed, verified, and patch placed on pt as ordered.
--- NOTE | 2018-12-14 19:36 | NUR ---
HAND-OFF: Report given to Debora ROBERTSON. Pt is resting in bed in stable condition, family at bedside. Endorsed plan of care.
--- NOTE | 2018-12-14 19:40 | NUR ---
NURSE NOTES: Received pt from MARCELO Topete. Pt awake, alert, and talkative. Bed in lowest position. Family at bedside. Call light within reach. Will continue to monitor.
--- NOTE | 2018-12-14 20:03 | NUR ---
CASE MANAGEMENT: REVIEW / PRESENTED TO ED FROM HOME CC: HEADACHE AFTER SEIZURE SI: SEIZURE T 97.8 HR 105 RR 16 BP 128/59 SAT 96% ROOM AIR GLUCOSE 69 ALK PHOS 117 TOX: +THC IS: COMPAZINE IV X1 BENADRYL IV X1 NS IVF BOLUS X1 PATIENT ADMITTED TO TELEMETRY UNIT 12/14/2018 DCP: PATIENT IS FROM HOME
[2018-12-14 20:36] VITALS: BP 133/93
--- NOTE | 2018-12-14 20:44 | NUR ---
NURSE NOTES: Called and left a message with Dr. Ayala regarding pts request for an extra 5 mg of ambien. Awaiting call back
[2018-12-14] MEDS ORDERED: Zolpidem 5mg tab ORAL PRN ×2 (21:00→23:30)
[2018-12-14] MEDS ORDERED: Miralax 17gm pkt ORAL PRN (21:00)
[2018-12-14] MEDS: LORazepam Inj 2mg/ml 1ml IV PRN (22:08)
--- NOTE | 2018-12-14 23:21 | NUR ---
NURSE NOTES: Dr. Ayala said yes to the 10 mg order of ambien. Will input order and will continue to monitor.
--- NOTE | 2018-12-15 00:01 | History and Physical Report ---
DATE OF ADMISSION: 12/14/2018 CONSULTANTS: 1. Oralia Bryan M.D. 2. Balbina Campo M.D. 3. . CHIEF COMPLAINT: Severe headache, seizure, and insomnia. BRIEF HISTORY: This is a 53-year-old female who comes to my office, yesterday came to my office crying unable to sleep for several days, was very agitated and anxious and depressed, and had to have seizure twice in the last week. The patient came to [facility], diagnosed with the above, and being admitted to telemetry for further care. Currently, received some medications, sleepy in bed, feeling much better . REVIEW OF SYSTEMS: No chest pain. No shortness of breath. No nausea, vomiting, or diarrhea. PAST MEDICAL HISTORY: Includes severe recurrent headaches, seizures, and insomnia. PAST SURGICAL HISTORY: None. MEDICATIONS: Include mirtazapine, polyethylene glycol, zolpidem, lactulose, , morphine, Zofran, diphenhydramine, and procarbazine. ALLERGIES: Denies. SOCIAL HISTORYS: Positive smoke. Positive alcohol. No intravenous drug abuse. FAMILY HISTORY: Noncontributory. PHYSICAL EXAMINATION: GENERAL: Calm in bed, oriented x3, and in no acute distress. VITAL SIGNS: Temperature is 97 degrees, pulse 90, respirations 19, and blood pressure 120/59. CARDIOVASCULAR: No murmurs. LUNGS: Distant and clear. ABDOMEN: Bowel sounds positive. Soft, nontender, and nondistended. EXTREMITIES: Show no cyanosis, clubbing, or edema. NEUROLOGIC: The patient moves all extremities, slightly weak. LABORATORY DATA: Labs, at this time show CBC is normal. Glucose 69, alkaline phosphatase 117, otherwise BMP is normal. Urinalysis show 1+ leukocyte esterase. Urine tox show positive marijuana. ASSESSMENT: 1. Headaches. 2. Urinary tract infection. 3. Seizure. 4. Insomnia. PLAN: 1. Antibiotics per Infectious Disease. 2. Head pain control. 3. Seizure control. 4. Dietary followup. 5. Psych treatment. 6. We will continue to follow this patient. 7. CBC and BMP in the morning. Geoffrey Ayala D.O. DR: PRANAV JOB#: [id number] CC:
[2018-12-15 00:05] VITALS: BP 120/79
[2018-12-15] MEDS ORDERED: Zolpidem 5mg tab ORAL PRN (01:00)
[2018-12-15 04:00] VITALS: BP 151/83
[2018-12-15 04:04] VITALS: BP 141/85
[2018-12-15] MEDS: LORazepam Inj 2mg/ml 1ml IV PRN ×2 (06:28→20:02)
--- NOTE | 2018-12-15 07:10 | NUR ---
HAND-OFF: Report given to MARCELO Allen. Pt stable.
[2018-12-15 07:29] LABS: BASOPHILS % (AUTO) 0.9 % (0.0-2.0); EOSINOPHILS % (AUTO) 2.7 % (0.0-3.0); HEMOGLOBIN 12.6 G/DL (12.0-16.0); LYMPHOCYTES % (AUTO) 24.4 % (20.0-45.0); MEAN CORPUSCULAR VOLUME 96 FL (80-99); MONOCYTES % (AUTO) 7.2 % (1.0-10.0); NEUTROPHILS % (AUTO) 64.8 % (45.0-75.0); PLATELET COUNT 299 K/UL (150-450); RED BLOOD COUNT 3.97 M/UL (4.20-5.40); RED CELL DISTRIBUTION WIDTH 13.8 % (11.6-14.8); WHITE BLOOD COUNT 7.4 K/UL (4.8-10.8)
--- NOTE | 2018-12-15 07:40 | Consultation ---
History of Present Illness General Date patient seen: Dec 15, 2018 Time patient seen: 06:55 Chief Complaint: General Complaint Referring physician: dr Ayala Reason for Consultation: inhospital management Present Illness HPI 53 years old female with past medical history of lumbar radiculopathy, recently diagnosed , in July last year , seizure disorder, presented to emergency room with for evaluation due to breakthrough episodes of seizure. Patient was hospitalized previously . Keppra dose was increased due to uncontrolled seizure , however patient reported having seizures at nighttime. Patient was unable to sleep due to seizures, , reported being depressed and having daily headaches. Patient denied fever and chills. She denied recent infection or illness Patient denied head trauma. Patient denied chest pain or shortness of breath. Upon evaluation vital signs revealed slight tachycardia, otherwise were stable. Laboratory workup was unremarkable. CT of the head revealed no acute intracranial pathology. Urinalysis revealed + 1 leukocyte esterase but otherwise was negative for evidence for UTI. No leukocytosis, stable renal parameters, glucose 69. Patient was admitted for further management. Allergies: Coded Allergies: No Known Allergies (Unverified , 11/13/18) Medication History Scheduled Cephalexin* (Keflex*), 500 MG ORAL TID Clonazepam (Clonazepam), 1 MG ORAL BEDTIME Famotidine (Pepcid), 20 MG ORAL DAILY Hydrocodone/Acetaminophen (Lortab 7.5-325 mg Tablet), 1 EACH PO Q6HR Lactulose (Lactulose*), 30 ML ORAL BID Levetiracetam (Keppra), 500 MG ORAL TID, (Reported) Mirtazapine* (Mirtazapine*), 15 MG ORAL BEDTIME No Known Medications* (NKM - No Known Medications*), 0 ., (Reported) Permethrin (Permethrin), 1 APPLIC TOPIC ONCE Scheduled PRN Diazepam* (Valium*), 5 MG ORAL TID PRN for spasm Hydrocodone Bit/Acetaminophen 5-325* ([place] 5-325*), 1 TAB ORAL Q6H PRN for For Pain Hydrocodone Bit/Acetaminophen 5-325* ([place] 5-325*), 1 TAB ORAL Q6H PRN for For Pain Hydrocodone/Acetaminophen 7.5-325* (Hydrocodon-Acetaminoph 7.5-325*), 1 TAB ORAL Q6H PRN for For Pain Tramadol Hcl* (Ultram*), 50 MG ORAL Q6H PRN for For Pain Patient History History Provided By: Patient Healthcare decision maker Resuscitation status Full Code Advanced Directive on File Past Medical/Surgical History Past Medical/Surgical History: (1) Seizure (2) Costochondritis (3) Contact dermatitis (4) Lumbar radiculopathy, acute (5) Lower GI bleed (6) Upper GI bleed Review of Systems Constitutional: Reports: weakness ENT: Reports: no symptoms Respiratory: Reports: no symptoms Cardiovascular: Reports: no symptoms Gastrointestinal: Reports: no symptoms Musculoskeletal: Reports: no symptoms Skin: Reports: no symptoms Psychiatric: Reports: depressed feelings, other - insomnia Neurological: Reports: see HPI, seizure Endocrine: Reports: no symptoms Hematologic/Lymphatic: Reports: no symptoms Physical Exam General Appearance: WD/WN, no apparent distress, alert Lines, tubes and drains: peripheral HEENT: normocephalic, atraumatic, anicteric, mucous membranes moist Neck: non-tender, normal alignment, supple Respiratory/Chest: lungs clear, no respiratory distress, no accessory muscle use Cardiovascular/Chest: normal peripheral pulses, normal rate, no JVD Abdomen: normal bowel sounds, non tender, soft Extremities: normal range of motion, no calf tenderness, normal capillary refill Neurologic: supervisor vat house II-XII grossly normal, no motor/sensory deficits, alert, oriented x 3, responsive Musculoskeletal: normal muscle bulk Last 24 Hour Vital Signs Date Time Temp Pulse Resp B/P (MAP) Pulse Ox O2 Delivery O2 Flow Rate FiO2 12/15/18 04:04 82 141/85 (103) 12/15/18 04:00 98.4 90 151/83 (105) 12/15/18 04:00 78 12/15/18 00:05 98.3 90 120/79 (93) 12/15/18 00:00 86 12/14/18 21:00 Room Air 12/14/18 20:36 97.8 82 133/93 (106) 12/14/18 20:00 99 12/14/18 16:00 91 12/14/18 14:20 97.8 72 19 129/70 100 Room Air 12/14/18 14:20 97.8 72 19 129/70 100 Room Air 90 12/14/18 14:00 Room Air 12/14/18 12:52 90 128/59 12/14/18 10:05 97.8 105 19 123/85 100 Room Air 12/14/18 10:05 105 19 Room Air 12/14/18 10:00 98.1 103 16 123/88 96 Room Air Intake and Output 12/14/18 12/15/18 19:00 07:00 Intake Total 1400 ml Balance 1400 ml Intake Oral 400 ml IV Total 1000 ml # Voids 1 Laboratory Tests Test 12/14/18 10:30 12/15/18 05:55 White Blood Count 7.5 K/UL (4.8-10.8) 7.4 K/UL (4.8-10.8) Red Blood Count 4.36 M/UL (4.20-5.40) 3.97 M/UL (4.20-5.40) L Hemoglobin 13.5 G/DL (12.0-16.0) 12.6 G/DL (12.0-16.0) Hematocrit 42.7 % (37.0-47.0) 38.0 % (37.0-47.0) Mean Corpuscular Volume 98 FL (80-99) 96 FL (80-99) Mean Corpuscular Hemoglobin 31.1 PG (27.0-31.0) H 31.7 PG (27.0-31.0) H Mean Corpuscular Hemoglobin Concent 31.7 G/DL (32.0-36.0) L 33.1 G/DL (32.0-36.0) Red Cell Distribution Width 14.0 % (11.6-14.8) 13.8 % (11.6-14.8) Platelet Count 338 K/UL (150-450) 299 K/UL (150-450) Mean Platelet Volume 5.4 FL (6.5-10.1) L 5.4 FL (6.5-10.1) L Neutrophils (%) (Auto) 59.1 % (45.0-75.0) 64.8 % (45.0-75.0) Lymphocytes (%) (Auto) 29.9 % (20.0-45.0) 24.4 % (20.0-45.0) Monocytes (%) (Auto) 7.4 % (1.0-10.0) 7.2 % (1.0-10.0) Eosinophils (%) (Auto) 2.2 % (0.0-3.0) 2.7 % (0.0-3.0) Basophils (%) (Auto) 1.4 % (0.0-2.0) 0.9 % (0.0-2.0) Urine Color Pale yellow Urine Appearance Clear Urine pH 5 (4.5-8.0) Urine Specific [place] 1.015 (1.005-1.035) Urine Protein Negative (NEGATIVE) Urine Glucose (UA) Negative (NEGATIVE) Urine Ketones Negative (NEGATIVE) Urine Blood Negative (NEGATIVE) Urine Nitrite Negative (NEGATIVE) Urine Bilirubin Negative (NEGATIVE) Urine Urobilinogen Normal MG/DL (0.0-1.0) Urine Leukocyte Esterase 1+ (NEGATIVE) H Urine RBC 0 /HPF (0 - 2) Urine WBC 0-2 /HPF (0 - 2) Urine Squamous Epithelial Cells Occasional /LPF Urine Bacteria Occasional /HPF (NONE) Urine HCG, Qualitative Negative (NEGATIVE) Sodium Level 140 MMOL/L (136-145) Pending Potassium Level 4.6 MMOL/L (3.5-5.1) Pending Chloride Level 105 MMOL/L (98-107) Pending Carbon Dioxide Level 23 MMOL/L (21-32) Pending Anion Gap 12 mmol/L (5-15) Blood Urea Nitrogen 10 mg/dL (7-18) Pending Creatinine 0.8 MG/DL (0.55-1.30) Pending Estimat Glomerular Filtration Rate > 60 mL/min (>60) Pending Glucose Level 69 MG/DL (74-106) L Pending Calcium Level 9.2 MG/DL (8.5-10.1) Pending Total Bilirubin 0.2 MG/DL (0.2-1.0) Pending Aspartate Amino Transf (AST/SGOT) 34 U/L (15-37) Pending Alanine Aminotransferase (ALT/SGPT) 34 U/L (12-78) Pending Alkaline Phosphatase 117 U/L (46-116) H Pending Total Creatine Kinase 66 U/L (26-308) Total Protein 7.9 G/DL (6.4-8.2) Pending Albumin 3.5 G/DL (3.4-5.0) Pending Globulin 4.4 g/dL Pending Albumin/Globulin Ratio 0.8 (1.0-2.7) L Urine Opiates Screen Negative (NEGATIVE) Urine Barbiturates Screen Negative (NEGATIVE) Phencyclidine (PCP) Screen Negative (NEGATIVE) Urine Amphetamines Screen Negative (NEGATIVE) Urine Benzodiazepines Screen Negative (NEGATIVE) Urine Cocaine Screen Negative (NEGATIVE) Urine Marijuana (THC) Screen Positive (NEGATIVE) H Triglycerides Level Pending Cholesterol Level Pending LDL Cholesterol Pending HDL Cholesterol Pending Cholesterol/HDL Ratio Pending Thyroid Stimulating Hormone (TSH) Pending Rapid Plasma Reagin Pending HIV (1&2) Antibody Rapid Pending Height (Feet): 5 Height (Inches): 6.00 Weight (Pounds): 180 Medications Current Medications Medications (Trade) Dose Ordered Sig/Hao Route PRN Reason Start Time Stop Time Status Last Admin Dose Admin Acetaminophen (Tylenol) 650 mg Q4H PRN ORAL T>100.5 12/14/18 13:00 01/13/19 12:59 Al Hydroxide/Mg Hydroxide (Mylanta II) 30 ml Q6H PRN ORAL dyspepsia 12/14/18 13:00 01/13/19 12:59 Dextrose (Dextrose 50%) 25 ml Q30M PRN IV Hypoglycemia 12/14/18 13:15 01/13/19 13:01 Dextrose (Dextrose 50%) 50 ml Q30M PRN IV hypoglycemia 12/14/18 13:15 01/13/19 13:14 Famotidine (Pepcid) 20 mg DAILY ORAL 12/15/18 09:00 01/14/19 08:59 Lactulose (Cephulac) 20 gm BID ORAL 12/14/18 18:00 01/13/19 17:59 Levetiracetam (Keppra) 500 mg Q8HR ORAL 12/14/18 14:00 01/13/19 13:59 12/15/18 05:18 Lorazepam (Ativan 2mg/ml 1ml) 0.5 mg Q4H PRN IV For Anxiety 12/14/18 13:00 12/21/18 12:59 12/15/18 06:28 Mirtazapine (Remeron) 15 mg BEDTIME ORAL 12/14/18 21:00 01/13/19 20:59 12/14/18 22:01 Morphine Sulfate (Morphine Sulfate) 1 mg Q4H PRN IVP PAIN 4-10 12/14/18 13:00 12/21/18 12:59 Nicotine (Nicoderm) 1 patch Q24H TDERMAL 12/14/18 19:00 01/13/19 18:59 12/14/18 18:50 Ondansetron HCl (Zofran) 4 mg Q6H PRN IVP Nausea & Vomiting 12/14/18 13:00 01/13/19 12:59 Polyethylene Glycol (Miralax) 17 gm HSPRN PRN ORAL Constipation 12/14/18 21:00 01/13/19 20:59 Zolpidem Tartrate (Ambien) 5 mg HSPRN PRN ORAL Insomnia 12/15/18 01:00 12/21/18 20:59 12/15/18 00:55 Assessment/Plan Assessment/Plan ASSESSMENT Breakthrough seizures intractable pain migraine headaches hyperlipemia nicotine dependency with withdrawal marijuana user PLAN OF CARE tele flood seizure precautions Keppra for now Ativan prn for breakthrough seizure episode neuro eval pending, discussed with pt that different options for antiepileptic medication available , pt concerned that all have side effects, discussed extensively that medications need to be tried to see if it effective under close supervision of neurologist as outpt on previous visit EEG revealed left posterior temporal epileptogenic focus. MRI brain and MRA neck were unremarkable neuro eval pending O2 HHN prn no signs of resp distress pre parole counseling aide on smoking cessation started on Nicotine patch not ready to quit pre parole counseling aide to avoid use of illicit street drugs and limit marijuana use lipid panel with elevated TC and LDL hesitant to start statin instructed on TLC, including low fat low cholesterol diet GI prophylaxis bowel regimen pain management supportive care case discussed and evaluated by supervising physician Shreya Matos NP Dec 15, 2018 07:40
--- NOTE | 2018-12-15 07:59 | Infectious Diseases Prog Note ---
Assessment/Plan Assessment/Plan Abx: none Assessment: Afebrile No leukocytosis Breakthrough Seizures/Headache- unclear etiology- CT head and recent MRI brain with no abscess or parasitic lesions (ie cysticercosis)- No signs or symptoms that suggest an infectious etiology -12/14 CT head: Normal CT scan of the head without contrast material. -11/14 MRI brain w/ : Negative evaluation -11/13 MRI brain wo: Negative MRI brain without contrast. SEizure disorder (dx Jul 2018) on Keppra Plan: -Continue to monitor off abx as patient clinically stable -Neuro eval -?repeat MRI w/ -Monitor CBC/CMP, temperatures -f/u HIV ab, RPR Thank you for this consultation. Will continue to follow along with you. Discussed with RN. Subjective Allergies: Coded Allergies: No Known Allergies (Unverified , 11/13/18) Subjective Afebrile No leukocytosis Objective Vital Signs Last 24 Hour Vital Signs Date Time Temp Pulse Resp B/P (MAP) Pulse Ox O2 Delivery O2 Flow Rate FiO2 12/15/18 04:04 82 141/85 (103) 12/15/18 04:00 98.4 90 151/83 (105) 12/15/18 04:00 78 12/15/18 00:05 98.3 90 120/79 (93) 12/15/18 00:00 86 12/14/18 21:00 Room Air 12/14/18 20:36 97.8 82 133/93 (106) 12/14/18 20:00 99 12/14/18 16:00 91 12/14/18 14:20 97.8 72 19 129/70 100 Room Air 12/14/18 14:20 97.8 72 19 129/70 100 Room Air 90 12/14/18 14:00 Room Air 12/14/18 12:52 90 128/59 12/14/18 10:05 97.8 105 19 123/85 100 Room Air 12/14/18 10:05 105 19 Room Air 12/14/18 10:00 98.1 103 16 123/88 96 Room Air Height (Feet): 5 Height (Inches): 6.00 Weight (Pounds): 180 Objective General Appearance: no apparent distress, alert non-toxic Head: normocephalic, atraumatic, MMM Respiratory: CTAB, No W/C Cardiovascular : regular rate, rhythm, no edema Gastrointestinal: normal bowel sounds, non tender, soft, non-distended Laboratory Tests Test 12/14/18 10:30 12/15/18 05:55 White Blood Count 7.5 K/UL (4.8-10.8) 7.4 K/UL (4.8-10.8) Red Blood Count 4.36 M/UL (4.20-5.40) 3.97 M/UL (4.20-5.40) L Hemoglobin 13.5 G/DL (12.0-16.0) 12.6 G/DL (12.0-16.0) Hematocrit 42.7 % (37.0-47.0) 38.0 % (37.0-47.0) Mean Corpuscular Volume 98 FL (80-99) 96 FL (80-99) Mean Corpuscular Hemoglobin 31.1 PG (27.0-31.0) H 31.7 PG (27.0-31.0) H Mean Corpuscular Hemoglobin Concent 31.7 G/DL (32.0-36.0) L 33.1 G/DL (32.0-36.0) Red Cell Distribution Width 14.0 % (11.6-14.8) 13.8 % (11.6-14.8) Platelet Count 338 K/UL (150-450) 299 K/UL (150-450) Mean Platelet Volume 5.4 FL (6.5-10.1) L 5.4 FL (6.5-10.1) L Neutrophils (%) (Auto) 59.1 % (45.0-75.0) 64.8 % (45.0-75.0) Lymphocytes (%) (Auto) 29.9 % (20.0-45.0) 24.4 % (20.0-45.0) Monocytes (%) (Auto) 7.4 % (1.0-10.0) 7.2 % (1.0-10.0) Eosinophils (%) (Auto) 2.2 % (0.0-3.0) 2.7 % (0.0-3.0) Basophils (%) (Auto) 1.4 % (0.0-2.0) 0.9 % (0.0-2.0) Urine Color Pale yellow Urine Appearance Clear Urine pH 5 (4.5-8.0) Urine Specific [place] 1.015 (1.005-1.035) Urine Protein Negative (NEGATIVE) Urine Glucose (UA) Negative (NEGATIVE) Urine Ketones Negative (NEGATIVE) Urine Blood Negative (NEGATIVE) Urine Nitrite Negative (NEGATIVE) Urine Bilirubin Negative (NEGATIVE) Urine Urobilinogen Normal MG/DL (0.0-1.0) Urine Leukocyte Esterase 1+ (NEGATIVE) H Urine RBC 0 /HPF (0 - 2) Urine WBC 0-2 /HPF (0 - 2) Urine Squamous Epithelial Cells Occasional /LPF Urine Bacteria Occasional /HPF (NONE) Urine HCG, Qualitative Negative (NEGATIVE) Sodium Level 140 MMOL/L (136-145) Pending Potassium Level 4.6 MMOL/L (3.5-5.1) Pending Chloride Level 105 MMOL/L (98-107) Pending Carbon Dioxide Level 23 MMOL/L (21-32) Pending Anion Gap 12 mmol/L (5-15) Blood Urea Nitrogen 10 mg/dL (7-18) Pending Creatinine 0.8 MG/DL (0.55-1.30) Pending Estimat Glomerular Filtration Rate > 60 mL/min (>60) Pending Glucose Level 69 MG/DL (74-106) L Pending Calcium Level 9.2 MG/DL (8.5-10.1) Pending Total Bilirubin 0.2 MG/DL (0.2-1.0) Pending Aspartate Amino Transf (AST/SGOT) 34 U/L (15-37) Pending Alanine Aminotransferase (ALT/SGPT) 34 U/L (12-78) Pending Alkaline Phosphatase 117 U/L (46-116) H Pending Total Creatine Kinase 66 U/L (26-308) Total Protein 7.9 G/DL (6.4-8.2) Pending Albumin 3.5 G/DL (3.4-5.0) Pending Globulin 4.4 g/dL Pending Albumin/Globulin Ratio 0.8 (1.0-2.7) L Urine Opiates Screen Negative (NEGATIVE) Urine Barbiturates Screen Negative (NEGATIVE) Phencyclidine (PCP) Screen Negative (NEGATIVE) Urine Amphetamines Screen Negative (NEGATIVE) Urine Benzodiazepines Screen Negative (NEGATIVE) Urine Cocaine Screen Negative (NEGATIVE) Urine Marijuana (THC) Screen Positive (NEGATIVE) H Triglycerides Level Pending Cholesterol Level Pending LDL Cholesterol Pending HDL Cholesterol Pending Cholesterol/HDL Ratio Pending Thyroid Stimulating Hormone (TSH) Pending Rapid Plasma Reagin Pending HIV (1&2) Antibody Rapid Pending Current Medications Medications (Trade) Dose Ordered Sig/Hao Route PRN Reason Start Time Stop Time Status Last Admin Dose Admin Acetaminophen (Tylenol) 650 mg Q4H PRN ORAL T>100.5 12/14/18 13:00 01/13/19 12:59 Al Hydroxide/Mg Hydroxide (Mylanta II) 30 ml Q6H PRN ORAL dyspepsia 12/14/18 13:00 01/13/19 12:59 Dextrose (Dextrose 50%) 25 ml Q30M PRN IV Hypoglycemia 12/14/18 13:15 01/13/19 13:01 Dextrose (Dextrose 50%) 50 ml Q30M PRN IV hypoglycemia 12/14/18 13:15 01/13/19 13:14 Famotidine (Pepcid) 20 mg DAILY ORAL 12/15/18 09:00 01/14/19 08:59 Lactulose (Cephulac) 20 gm BID ORAL 12/14/18 18:00 01/13/19 17:59 Levetiracetam (Keppra) 500 mg Q8HR ORAL 12/14/18 14:00 01/13/19 13:59 12/15/18 05:18 Lorazepam (Ativan 2mg/ml 1ml) 0.5 mg Q4H PRN IV For Anxiety 12/14/18 13:00 12/21/18 12:59 12/15/18 06:28 Mirtazapine (Remeron) 15 mg BEDTIME ORAL 12/14/18 21:00 01/13/19 20:59 12/14/18 22:01 Morphine Sulfate (Morphine Sulfate) 1 mg Q4H PRN IVP PAIN 4-10 12/14/18 13:00 12/21/18 12:59 Nicotine (Nicoderm) 1 patch Q24H TDERMAL 12/14/18 19:00 01/13/19 18:59 12/14/18 18:50 Ondansetron HCl (Zofran) 4 mg Q6H PRN IVP Nausea & Vomiting 12/14/18 13:00 01/13/19 12:59 Polyethylene Glycol (Miralax) 17 gm HSPRN PRN ORAL Constipation 12/14/18 21:00 01/13/19 20:59 Zolpidem Tartrate (Ambien) 5 mg HSPRN PRN ORAL Insomnia 12/15/18 01:00 12/21/18 20:59 12/15/18 00:55 Scott Robles MD Dec 15, 2018 07:59
[2018-12-15 08:00] VITALS: BP 133/90
--- NOTE | 2018-12-15 08:05 | NUR ---
NURSE NOTES: Patient AOx4. In RA. Denies SOB or any pain at this time. IV patent, flushed and SL. Bed on lowest position, side rails upx2 brakes engaged. Call light within easy reach.
[2018-12-15 08:15] LABS: ALANINE AMINOTRANSFERASE 24 U/L (12-78); ALBUMIN 3.1 G/DL (3.4-5.0); ALBUMIN/GLOBULIN RATIO 0.8 (1.0-2.7); ALKALINE PHOSPHATASE 105 U/L (46-116); ANION GAP 9 mmol/L (5-15); ASPARTATE AMINO TRANSFERASE 24 U/L (15-37); BILIRUBIN,TOTAL 0.5 MG/DL (0.2-1.0); BLOOD UREA NITROGEN 11 mg/dL (7-18); CALCIUM 9.1 MG/DL (8.5-10.1); CARBON DIOXIDE 24 MMOL/L (21-32); CHLORIDE 104 MMOL/L (98-107); CHOLESTEROL 224 MG/DL (< 200); CREATININE 0.9 MG/DL (0.55-1.30); HDL CHOLESTEROL 88 MG/DL (40-60); POTASSIUM 3.7 MMOL/L (3.5-5.1); SODIUM 137 MMOL/L (136-145); TRIGLYCERIDES 75 MG/DL (30-150)
--- NOTE | 2018-12-15 08:34 | General Progress Note ---
Assessment/Plan Problem List: (1) History of seizure ICD Codes: Z87.898 - Personal history of other specified conditions SNOMED: 012691442 (2) Insomnia ICD Codes: G47.00 - Insomnia, unspecified SNOMED: 305402477 (3) Depressed ICD Codes: F32.9 - Major depressive disorder, single episode, unspecified SNOMED: 50878216 (4) Headache ICD Codes: R51 - Headache SNOMED: 16009762 (5) UTI (urinary tract infection) ICD Codes: N39.0 - Urinary tract infection, site not specified SNOMED: 03132657 Status: stable, progressing Assessment/Plan abx per id pain and seizure bp control cbc bmp am Subjective Constitutional: Reports: weakness Allergies: Coded Allergies: No Known Allergies (Unverified , 11/13/18) All Systems: reviewed and negative except above Subjective sl head ache and poor sleep Objective Last 24 Hour Vital Signs Date Time Temp Pulse Resp B/P (MAP) Pulse Ox O2 Delivery O2 Flow Rate FiO2 12/15/18 08:00 98.4 96 18 133/90 (104) 99 12/15/18 04:04 82 141/85 (103) 12/15/18 04:00 98.4 90 151/83 (105) 12/15/18 04:00 78 12/15/18 00:05 98.3 90 120/79 (93) 12/15/18 00:00 86 12/14/18 21:00 Room Air 12/14/18 20:36 97.8 82 133/93 (106) 12/14/18 20:00 99 12/14/18 16:00 91 12/14/18 14:20 97.8 72 19 129/70 100 Room Air 12/14/18 14:20 97.8 72 19 129/70 100 Room Air 90 12/14/18 14:00 Room Air 12/14/18 12:52 90 128/59 12/14/18 10:05 97.8 105 19 123/85 100 Room Air 12/14/18 10:05 105 19 Room Air 12/14/18 10:00 98.1 103 16 123/88 96 Room Air Intake and Output 12/14/18 12/15/18 19:00 07:00 Intake Total 1400 ml Balance 1400 ml Intake Oral 400 ml IV Total 1000 ml # Voids 1 Laboratory Tests 12/14/18 10:30: White Blood Count 7.5, Red Blood Count 4.36, Hemoglobin 13.5, Hematocrit 42.7, Mean Corpuscular Volume 98, Mean Corpuscular Hemoglobin 31.1H, Mean Corpuscular Hemoglobin Concent 31.7L, Red Cell Distribution Width 14.0, Platelet Count 338, Mean Platelet Volume 5.4L, Neutrophils (%) (Auto) 59.1, Lymphocytes (%) (Auto) 29.9, Monocytes (%) (Auto) 7.4, Eosinophils (%) (Auto) 2.2, Basophils (%) (Auto ) 1.4, Urine Color Pale yellow, Urine Appearance Clear, Urine pH 5, Urine Specific [place] 1.015, Urine Protein Negative, Urine Glucose (UA) Negative, Urine Ketones Negative, Urine Blood Negative, Urine Nitrite Negative, Urine Bilirubin Negative, Urine Urobilinogen Normal, Urine Leukocyte Esterase 1+H, Urine RBC 0, Urine WBC 0-2, Urine Squamous Epithelial Cells Occasional, Urine Bacteria Occasional, Urine HCG, Qualitative Negative, Sodium Level 140, Potassium Level 4.6, Chloride Level 105, Carbon Dioxide Level 23, Anion Gap 12, Blood Urea Nitrogen 10, Creatinine 0.8, Estimat Glomerular Filtration Rate > 60 , Glucose Level 69L, Calcium Level 9.2, Total Bilirubin 0.2, Aspartate Amino Transf (AST/SGOT) 34, Alanine Aminotransferase (ALT/SGPT) 34, Alkaline Phosphatase 117H, Total Creatine Kinase 66, Total Protein 7.9, Albumin 3.5, Globulin 4.4, Albumin/Globulin Ratio 0.8L, Urine Opiates Screen Negative, Urine Barbiturates Screen Negative, Phencyclidine (PCP) Screen Negative, Urine Amphetamines Screen Negative, Urine Benzodiazepines Screen Negative, Urine Cocaine Screen Negative, Urine Marijuana (THC) Screen PositiveH 12/15/18 05:55: White Blood Count 7.4, Red Blood Count 3.97L, Hemoglobin 12.6, Hematocrit 38.0, Mean Corpuscular Volume 96, Mean Corpuscular Hemoglobin 31.7H, Mean Corpuscular Hemoglobin Concent 33.1, Red Cell Distribution Width 13.8, Platelet Count 299, Mean Platelet Volume 5.4L, Neutrophils (%) (Auto) 64.8, Lymphocytes (%) (Auto) 24.4, Monocytes (%) (Auto) 7.2, Eosinophils (%) (Auto) 2.7, Basophils (%) (Auto ) 0.9, Sodium Level 137, Potassium Level 3.7, Chloride Level 104, Carbon Dioxide Level 24, Anion Gap 9, Blood Urea Nitrogen 11, Creatinine 0.9, Estimat Glomerular Filtration Rate > 60, Glucose Level 82, Calcium Level 9.1, Total Bilirubin 0.5, Aspartate Amino Transf (AST/SGOT) 24, Alanine Aminotransferase ( ALT/SGPT) 24, Alkaline Phosphatase 105, Total Protein 7.0, Albumin 3.1L, Globulin 3.9, Albumin/Globulin Ratio 0.8L, Triglycerides Level 75, Cholesterol Level 224H, LDL Cholesterol 123H, HDL Cholesterol 88H, Cholesterol/HDL Ratio 2.5L, Thyroid Stimulating Hormone (TSH) 1.621, Rapid Plasma Reagin [Pending], HIV (1&2) Antibody Rapid [Pending] Height (Feet): 5 Height (Inches): 6.00 Weight (Pounds): 180 General Appearance: lethargic EENT: normal ENT inspection Neck: normal alignment Cardiovascular: normal peripheral pulses, normal rate, regular rhythm Respiratory/Chest: chest wall non-tender, lungs clear, normal breath sounds Abdomen: normal bowel sounds, non tender, soft Extremities: normal inspection Edema: no edema noted Arm (L), no edema noted Arm (R), no edema noted Leg (L), no edema noted Leg (R), no edema noted Pedal (L), no edema noted Pedal (R), no edema noted Generalized Neurologic: responsive, motor weakness Skin: normal pigmentation, warm/dry Geoffrey Ayala DO Dec 15, 2018 08:34
[2018-12-15] MEDS: Lactulose 20gm/30ml UDC ORAL SCH ×2 (09:00→18:00)
[2018-12-15] MEDS: Morphine Sulfate 2mg/ml Inj(IV/IM USE ONLY) IVP PRN (09:59)
[2018-12-15 12:00] VITALS: BP 134/78
--- NOTE | 2018-12-15 13:46 | NUR ---
CASE MANAGEMENT: REVIEW SI: SEIZURE T 98.4 HR 96 RR 18 BP 151/83 SAT 99% ROOM AIR IS: LACTULOSE PO BID KEPPRA PO Q8HR TELEMETRY UNIT STATUS DCP: PATIENT IS FROM HOME
[2018-12-15 16:00] VITALS: BP 124/74
--- NOTE | 2018-12-15 16:10 | NUR ---
NURSE NOTES: Patient insisted to go down to smoke. Patient has nicotine patch on, per patient sweat is making it hard to stick on skin. checked on patch and finding confirms patient's concern. Teaching was done about policies of hospital in regards to smocking, patient asked monitor to be taken off of her. Monitor was taken out. Patient left floor. RN went after patient. Patient went back within 2min. Patient safely in room at this time.
--- NOTE | 2018-12-15 19:55 | NUR ---
HAND-OFF: Report given to MARCELO fontanez. Patient in stable condition.
--- NOTE | 2018-12-15 19:56 | NUR ---
NURSE NOTES: Received pt from MARCELO Ellis. Pt awake, alert, and angry with care. Bed in lowest position. Call light within reach. Will continue to monitor
[2018-12-15] MEDS ORDERED: TraZODone 100mg tab ORAL SCH (21:00)
--- NOTE | 2018-12-15 22:02 | Consultation ---
DATE OF CONSULTATION: 12/15/2018 NOTE: "VERY POOR AUDIO QUALITY" CONSULTING PHYSICIAN: Balbina aCmpo M.D. HISTORY OF PRESENT ILLNESS: This is a female patient, 53 years old, who came into the hospital because she was having difficulty with insomnia. The patient was having difficulty with insomnia . Originally, she was at Dr. Park's office and she was complaining of high levels of insomnia having this and severe depression and anxiety because she has not been able to sleep. She has actually been taking Remeron at a dose of 15 mg nightly as well as well as Klonopin, but states this is still not enough to help her sleep as she has been suffering from severe insomnia lately, which has been a big problem for her. PAST MEDICAL HISTORY: She has history of headache, seizures, insomnia. ALLERGY HISTORY: She has no known drug allergies. PSYCHOTROPIC MEDICATIONS ON ADMISSION: Remeron 15 mg nightly. SUBSTANCE ABUSE HISTORY: Denies drug abuse, but does drink alcohol intermittently. SOCIAL HISTORY: She is financially supported by [employer] and [email or web address]. PSYCHIATRIC HISTORY: No previous psychiatric history other than mild depression. STRENGTHS: She is motivated to get better. She has a place to live. WEAKNESSES: She is impulsive and no support system. MENTAL STATUS EXAMINATION: This is a 53-year-old female patient. Her appearance is slightly disheveled. Attitude is irritable. Affect, guarded and restricted. Intellect poor as she does not know current events and does not know the last four presidents. Mood, depressed and anxious. Motor activity, psychomotor agitation. Attention span is fair. She is able to do serial 7's, spell world backwards. Orientation x4. She is oriented to person, place, time, and situation. Speech is low volume and slurred. Thought process is linear and goal-directed. Thought content, denies auditory or visual hallucinations or delusions. Denies suicidal or homicidal ideations. Perceptions, again she has no perceptual disturbances. Affect, reasoning is intact. She is able to understand proverbs. Does not have any concrete thinking. She denies any suicidal or homicidal ideations. Short-term memory, 3 out of 3 repeated after 5 minutes delay with good short-term memory. Long-term memory is intact based on the knowledge of long-term events such as high school she went to. DIAGNOSIS: 1. Major depressive disorder, mild, recurrent, without psychotic features. 2. Intermittent alcohol use. 3. Medical includes she has headaches and seizure disorder. 4. Psychosocial stressors, financial. PLAN: I am going to add trazodone 100 mg nightly to help reduce insomnia. Continue her Remeron at a dose of 15 mg nightly. Provided with 20 minutes of reality-based supportive psychotherapy and encouraged her to interact appropriately with staff and other patients. Seen and assessed at bedside. Chart was reviewed. Discussed with staff. The patient was seen and assessed in her room. I would like to thank Dr. Geoffrey Ayala for this interesting consultation. I will be happy to follow this patient with you throughout hospital course. Balbina Campo M.D. DR: Cyril JOB#: [id number] CC:
--- NOTE | 2018-12-15 23:58 | Cardiology Progress Note ---
Assessment/Plan Assessment/Plan The patient is seen and examined, full consult note will be dictated shortly. Objective Last 24 Hour Vital Signs Date Time Temp Pulse Resp B/P (MAP) Pulse Ox O2 Delivery O2 Flow Rate FiO2 12/15/18 21:00 Room Air 12/15/18 16:00 98.6 95 20 124/74 (91) 99 12/15/18 16:00 85 12/15/18 12:00 98.6 98 20 134/78 (96) 99 12/15/18 09:00 Room Air 12/15/18 08:00 98.4 96 18 133/90 (104) 99 12/15/18 08:00 78 12/15/18 04:04 82 141/85 (103) 12/15/18 04:00 98.4 90 151/83 (105) 12/15/18 04:00 78 12/15/18 00:05 98.3 90 120/79 (93) 12/15/18 00:00 86 Intake and Output 12/14/18 12/15/18 19:00 07:00 Intake Total 1400 ml Balance 1400 ml Intake Oral 400 ml IV Total 1000 ml # Voids 1 Laboratory Tests Test 12/15/18 05:55 White Blood Count 7.4 K/UL (4.8-10.8) Red Blood Count 3.97 M/UL (4.20-5.40) L Hemoglobin 12.6 G/DL (12.0-16.0) Hematocrit 38.0 % (37.0-47.0) Mean Corpuscular Volume 96 FL (80-99) Mean Corpuscular Hemoglobin 31.7 PG (27.0-31.0) H Mean Corpuscular Hemoglobin Concent 33.1 G/DL (32.0-36.0) Red Cell Distribution Width 13.8 % (11.6-14.8) Platelet Count 299 K/UL (150-450) Mean Platelet Volume 5.4 FL (6.5-10.1) L Neutrophils (%) (Auto) 64.8 % (45.0-75.0) Lymphocytes (%) (Auto) 24.4 % (20.0-45.0) Monocytes (%) (Auto) 7.2 % (1.0-10.0) Eosinophils (%) (Auto) 2.7 % (0.0-3.0) Basophils (%) (Auto) 0.9 % (0.0-2.0) Sodium Level 137 MMOL/L (136-145) Potassium Level 3.7 MMOL/L (3.5-5.1) Chloride Level 104 MMOL/L (98-107) Carbon Dioxide Level 24 MMOL/L (21-32) Anion Gap 9 mmol/L (5-15) Blood Urea Nitrogen 11 mg/dL (7-18) Creatinine 0.9 MG/DL (0.55-1.30) Estimat Glomerular Filtration Rate > 60 mL/min (>60) Glucose Level 82 MG/DL (74-106) Calcium Level 9.1 MG/DL (8.5-10.1) Total Bilirubin 0.5 MG/DL (0.2-1.0) Aspartate Amino Transf (AST/SGOT) 24 U/L (15-37) Alanine Aminotransferase (ALT/SGPT) 24 U/L (12-78) Alkaline Phosphatase 105 U/L (46-116) Total Protein 7.0 G/DL (6.4-8.2) Albumin 3.1 G/DL (3.4-5.0) L Globulin 3.9 g/dL Albumin/Globulin Ratio 0.8 (1.0-2.7) L Triglycerides Level 75 MG/DL (30-150) Cholesterol Level 224 MG/DL (< 200) H LDL Cholesterol 123 mg/dL (<100) H HDL Cholesterol 88 MG/DL (40-60) H Cholesterol/HDL Ratio 2.5 (3.3-4.4) L Thyroid Stimulating Hormone (TSH) 1.621 uiU/mL (0.358-3.740) Rapid Plasma Reagin Pending HIV (1&2) Antibody Rapid Negative (NEGATIVE) Aquilino Galeas MD Dec 15, 2018 23:58
[2018-12-16] MEDS: Morphine Sulfate 2mg/ml Inj(IV/IM USE ONLY) IVP PRN ×2 (01:46→10:45)
[2018-12-16] MEDS: LORazepam Inj 2mg/ml 1ml IV PRN ×2 (04:46→10:37)
--- NOTE | 2018-12-16 05:16 | Consultation ---
DATE OF CONSULTATION: 12/15/2018 CARDIOLOGY CONSULTATION CONSULTING PHYSICIAN: Aquilino Galeas M.D. REFERRING PHYSICIAN: Geoffrey Ayala D.O. REASON FOR CONSULTATION: Management of tachycardia. HISTORY OF PRESENT ILLNESS: The patient is a very unfortunate 53-year-old lady with history of seizure disorder, on Keppra since July 2018, who apparently had severe headache and insomnia, which she attributes to Keppra that she takes for seizure disorder. She also states that she gets breakthrough seizures despite being on medication. She has been followed by neurologist in the past. At the time of arrival to the hospital, she denies any chest pain or shortness of breath. Her initial blood pressure was 123/88 mmHg and heart rate was 103 beats per minute. A 12-lead electrocardiogram in the emergency department revealed sinus rhythm at a rate of 90 and no acute ischemic changes. Cardiology consultation was made at the request of Dr. Ayala for management of tachycardia. She was admitted to telemetry for further evaluation and management of the above. ALLERGIES: No known drug allergies. PAST MEDICAL HISTORY: 1. Seizure disorder. 2. Headaches. 3. Insomnia. SOCIAL HISTORY: Denies any tobacco, alcohol, or illicit drug use. PAST SURGICAL HISTORY: None. MEDICATIONS: List of medications includes: 1. Keflex 500 mg 3 times a day. 2. Clonazepam 1 mg p.o. nightly. 3. Valium 5 mg p.o. 3 times a day p.r.n. spasm. 4. Pepcid 20 mg p.o. daily. 5. [place] 5/325 one tablet q.6 hours p.r.n. pain. 6. Lactulose 30 mL p.o. twice daily. 7. Keppra 500 mg 3 times a day. 8. Mirtazapine 15 mg p.o. nightly. 9. Permethrin application topically. 10. Ultram 50 mg p.o. q.6 hours p.r.n. pain. REVIEW OF SYSTEMS: HEENT: She had some headaches, but no blurred vision or diplopia. CONSTITUTIONAL: Denies any fever, chills, night sweats, but did have weakness. CARDIOVASCULAR SYSTEM: Denies any chest pain, shortness of breath, PND, orthopnea, leg swelling, or syncope. PULMONARY: Denies any cough, hemoptysis, or wheezing. GASTROINTESTINAL: Denies any nausea, vomiting, diarrhea, constipation, abdominal pain, or GI bleed. GENITOURINARY: Denies any hematuria, dysuria, or incontinence. NEUROLOGIC: Complains of breakthrough seizures despite the Keppra. Denies any signs of lateralization. MUSCULOSKELETAL: Complains of neck pain. PSYCHIATRIC: Complains of depression due to the current situation with refractory seizures despite medical therapy. PHYSICAL EXAMINATION: VITAL SIGNS: Blood pressure is 123/88, pulse of 103, respirations 16, O2 saturation 96% on room air, and temperature 98.1 degrees Fahrenheit. GENERAL: The patient is a very unfortunate 53-year-old lady, who is in no apparent respiratory distress. HEENT: Atraumatic and normocephalic. Anicteric. Pupils are equal, round, and reactive to light and accommodation. Extraocular movements are intact. NECK: JVP less than 5 cm. No carotid bruits. Carotid upstrokes 2+ bilaterally. CARDIOVASCULAR SYSTEM: Normal S1, S2. Regular rate and rhythm. No murmurs, gallops, or rubs. PMI is at fourth intercostal space in midclavicular line. LUNGS: Clear to auscultation bilaterally. ABDOMEN: Soft, nontender, nondistended. No hepatosplenomegaly. Positive bowel sounds. EXTREMITIES: No evidence of edema, clubbing, or cyanosis. LABORATORY FINDINGS: Sodium level was 140, potassium was 4.6, chloride 105, bicarbonate 23, BUN of 10, creatinine 0.8, glucose is 69, calcium is 9.2. Urine drug screen, positive for THC. WBC 7.5, hemoglobin 13.5, hematocrit of 42.7, and platelet count 338,000. CT of head showed no acute disease. Lower extremity venous duplex showed no evidence of DVT in the lower extremity. ASSESSMENT AND PLAN: The patient is a very unfortunate 53-year-old female who was seen in Cardiology consultation. 1. Sinus tachycardia. This could be secondary to hypovolemia. The patient requires to be well hydrated. We have to review the list of medication and specifically identify any of the medications that may potentially have side effect of tachycardia. In this regard, mirtazapine which is an SSRI may have some side effects of tachycardia. 2. History of seizure disorder. 3. History of anxiety/depression. I would like to thank, Dr. Ayala, for allowing me to participate in the care of this patient. Aquilino Galeas M.D. DR: Giana JOB#: [id number] CC:
--- NOTE | 2018-12-16 07:10 | NUR ---
NURSE NOTES: Received report from MARCELO Cazares. Patient is AAOx4. Patient is breathing even and unlabored. Patient states she wants a private room and adjustment on medications for sleeping. Patient refused heart monitor on. Patient bed is in lowest position, bed locked, 2 side rails up, and call light within reach Patient is on fall precaution. Will follow up plan of care.
--- NOTE | 2018-12-16 07:19 | NUR ---
HAND-OFF: Report given to MARCELO Diana. Pt stable.
[2018-12-16] MEDS: Lactulose 20gm/30ml UDC ORAL SCH (08:00)
[2018-12-16 08:27] LABS: BASOPHILS % (AUTO) 0.9 % (0.0-2.0); HEMATOCRIT 41.4 % (37.0-47.0); HEMOGLOBIN 13.1 G/DL (12.0-16.0); LYMPHOCYTES % (AUTO) 27.5 % (20.0-45.0); MEAN CORPUSCULAR VOLUME 98 FL (80-99); MONOCYTES % (AUTO) 6.4 % (1.0-10.0); NEUTROPHILS % (AUTO) 62.2 % (45.0-75.0); PLATELET COUNT 303 K/UL (150-450); WHITE BLOOD COUNT 6.1 K/UL (4.8-10.8)
--- NOTE | 2018-12-16 08:27 | Pulmonology Progress Note ---
Assessment/Plan Assessment/Plan ASSESSMENT Breakthrough seizures intractable pain migraine headaches hyperlipemia nicotine dependency with withdrawal marijuana user major depressive disorder PLAN OF CARE tele floor seizure precautions Keppra for now Ativan prn for breakthrough seizure episode neuro eval pending, discussed with attending, left text message for neuro reminding to see this pt per dr Ayala and spoke with KIKO Joseph to call neuro as well discussed with pt that different options for antiepileptic medication available , pt concerned that all have side effects, discussed extensively that medications need to be tried to see if it effective under close supervision of neurologist as outpt on previous visit EEG revealed left posterior temporal epileptogenic focus. MRI brain and MRA neck were unremarkable neuro eval pending O2 HHN prn no signs of resp distress children counselor on smoking cessation started on Nicotine patch not ready to quit children counselor to avoid use of illicit street drugs and limit marijuana use lipid panel with elevated TC and LDL hesitant to start statin instructed on TLC, including low fat low cholesterol diet seen by psych ; psych medication regimen optimized GI prophylaxis bowel regimen pain management supportive care case discussed and evaluated by supervising physician Subjective Allergies: Coded Allergies: No Known Allergies (Unverified , 11/13/18) Subjective nio seizure headaches continued tachycardia resolved seen by psych Objective Last 24 Hour Vital Signs Date Time Temp Pulse Resp B/P (MAP) Pulse Ox O2 Delivery O2 Flow Rate FiO2 12/15/18 21:00 Room Air 12/15/18 16:00 98.6 95 20 124/74 (91) 99 12/15/18 16:00 85 12/15/18 12:00 98.6 98 20 134/78 (96) 99 12/15/18 09:00 Room Air Intake and Output 12/15/18 12/16/18 18:59 06:59 Intake Total 620 ml Balance 620 ml Intake Oral 620 ml # Voids 3 1 Objective General Appearance: WD/WN, no apparent distress, alert Lines, tubes and drains: peripheral HEENT: normocephalic, atraumatic, anicteric, mucous membranes moist Neck: non-tender, normal alignment, supple Respiratory/Chest: lungs clear, no respiratory distress, no accessory muscle use Cardiovascular/Chest: normal peripheral pulses, normal rate, no JVD Abdomen: normal bowel sounds, non tender, soft Extremities: normal range of motion, no calf tenderness, normal capillary refill Neurologic: surgical garment fitter II-XII grossly normal, no motor/sensory deficits, alert, oriented x 3, responsive Musculoskeletal: normal muscle bulk Laboratory Tests 12/16/18 08:00: White Blood Count [Pending], Red Blood Count [Pending], Hemoglobin [Pending], Hematocrit [Pending], Mean Corpuscular Volume [Pending], Mean Corpuscular Hemoglobin [Pending], Mean Corpuscular Hemoglobin Concent [Pending], Red Cell Distribution Width [Pending], Platelet Count [Pending], Mean Platelet Volume [ Pending], Neutrophils (%) (Auto) [Pending], Lymphocytes (%) (Auto) [Pending], Monocytes (%) (Auto) [Pending], Eosinophils (%) (Auto) [Pending], Basophils (%) (Auto) [Pending], Sodium Level [Pending], Potassium Level [Pending], Chloride Level [Pending], Carbon Dioxide Level [Pending], Blood Urea Nitrogen [Pending], Creatinine [Pending], Estimat Glomerular Filtration Rate [Pending], Glucose Level [Pending], Calcium Level [Pending] Current Medications Medications (Trade) Dose Ordered Sig/Hao Route PRN Reason Start Time Stop Time Status Last Admin Dose Admin Acetaminophen (Tylenol) 650 mg Q4H PRN ORAL T>100.5 12/14/18 13:00 01/13/19 12:59 Al Hydroxide/Mg Hydroxide (Mylanta II) 30 ml Q6H PRN ORAL dyspepsia 12/14/18 13:00 01/13/19 12:59 Dextrose (Dextrose 50%) 25 ml Q30M PRN IV Hypoglycemia 12/14/18 13:15 01/13/19 13:01 Dextrose (Dextrose 50%) 50 ml Q30M PRN IV hypoglycemia 12/14/18 13:15 01/13/19 13:14 Famotidine (Pepcid) 20 mg DAILY ORAL 12/15/18 09:00 01/14/19 08:59 12/15/18 09:50 Lactulose (Cephulac) 20 gm BID ORAL 12/14/18 18:00 01/13/19 17:59 Levetiracetam (Keppra) 500 mg Q8HR ORAL 12/14/18 14:00 01/13/19 13:59 12/16/18 06:10 Lorazepam (Ativan 2mg/ml 1ml) 0.5 mg Q4H PRN IV For Anxiety 12/14/18 13:00 12/21/18 12:59 12/16/18 04:46 Mirtazapine (Remeron) 15 mg BEDTIME ORAL 12/14/18 21:00 01/13/19 20:59 12/15/18 20:08 Morphine Sulfate (Morphine Sulfate) 1 mg Q4H PRN IVP PAIN 4-10 12/14/18 13:00 12/21/18 12:59 12/16/18 01:46 Nicotine (Nicoderm) 1 patch Q24H TDERMAL 12/14/18 19:00 01/13/19 18:59 12/15/18 20:02 Ondansetron HCl (Zofran) 4 mg Q6H PRN IVP Nausea & Vomiting 12/14/18 13:00 01/13/19 12:59 Polyethylene Glycol (Miralax) 17 gm HSPRN PRN ORAL Constipation 12/14/18 21:00 01/13/19 20:59 Trazodone HCl (Desyrel) 100 mg BEDTIME ORAL 12/15/18 21:00 01/14/19 20:59 12/15/18 20:08 Zolpidem Tartrate (Ambien) 5 mg HSPRN PRN ORAL Insomnia 12/15/18 01:00 12/21/18 20:59 12/15/18 00:55 Shreya Matos TIE IN MACHINE OPERATOR Dec 16, 2018 08:27
--- NOTE | 2018-12-16 08:47 | General Progress Note ---
Assessment/Plan Problem List: (1) History of seizure ICD Codes: Z87.898 - Personal history of other specified conditions SNOMED: 976301070 (2) Insomnia ICD Codes: G47.00 - Insomnia, unspecified SNOMED: 077310254 (3) Depressed ICD Codes: F32.9 - Major depressive disorder, single episode, unspecified SNOMED: 89364922 (4) Headache ICD Codes: R51 - Headache SNOMED: 29296479 (5) UTI (urinary tract infection) ICD Codes: N39.0 - Urinary tract infection, site not specified SNOMED: 13444810 Status: stable, progressing Assessment/Plan abx per id pain and seizure bp control cbc bmp am Subjective Constitutional: Reports: weakness Allergies: Coded Allergies: No Known Allergies (Unverified , 11/13/18) All Systems: reviewed and negative except above Subjective sleepy in bed Objective Last 24 Hour Vital Signs Date Time Temp Pulse Resp B/P (MAP) Pulse Ox O2 Delivery O2 Flow Rate FiO2 12/15/18 21:00 Room Air 12/15/18 16:00 98.6 95 20 124/74 (91) 99 12/15/18 16:00 85 12/15/18 12:00 98.6 98 20 134/78 (96) 99 12/15/18 09:00 Room Air Intake and Output 12/15/18 12/16/18 18:59 06:59 Intake Total 620 ml Balance 620 ml Intake Oral 620 ml # Voids 3 1 Laboratory Tests 12/16/18 08:00: White Blood Count 6.1, Red Blood Count 4.20, Hemoglobin 13.1, Hematocrit 41.4, Mean Corpuscular Volume 98, Mean Corpuscular Hemoglobin 31.3H, Mean Corpuscular Hemoglobin Concent 31.7L, Red Cell Distribution Width 14.0, Platelet Count 303, Mean Platelet Volume 5.8L, Neutrophils (%) (Auto) 62.2, Lymphocytes (%) (Auto) 27.5, Monocytes (%) (Auto) 6.4, Eosinophils (%) (Auto) 3.0, Basophils (%) (Auto ) 0.9, Sodium Level [Pending], Potassium Level [Pending], Chloride Level [ Pending], Carbon Dioxide Level [Pending], Blood Urea Nitrogen [Pending], Creatinine [Pending], Estimat Glomerular Filtration Rate [Pending], Glucose Level [Pending], Calcium Level [Pending] Height (Feet): 5 Height (Inches): 6.00 Weight (Pounds): 180 General Appearance: lethargic EENT: normal ENT inspection Neck: normal alignment Cardiovascular: normal peripheral pulses, normal rate, regular rhythm Respiratory/Chest: chest wall non-tender, lungs clear, normal breath sounds Abdomen: normal bowel sounds, non tender, soft Extremities: normal inspection Edema: no edema noted Arm (L), no edema noted Arm (R), no edema noted Leg (L), no edema noted Leg (R), no edema noted Pedal (L), no edema noted Pedal (R), no edema noted Generalized Neurologic: motor weakness Skin: normal pigmentation, warm/dry Geoffrey Ayala DO Dec 16, 2018 08:47
[2018-12-16 08:52] LABS: ANION GAP 9 mmol/L (5-15); BLOOD UREA NITROGEN 17 mg/dL (7-18); CALCIUM 9.3 MG/DL (8.5-10.1); CARBON DIOXIDE 26 MMOL/L (21-32); CHLORIDE 103 MMOL/L (98-107); CREATININE 0.9 MG/DL (0.55-1.30); POTASSIUM 3.7 MMOL/L (3.5-5.1); SODIUM 138 MMOL/L (136-145)
[2018-12-16 12:00] VITALS: BP 117/82
--- NOTE | 2018-12-16 13:35 | NUR ---
NURSE NOTES: Moved patient to 415-1 to med-surg per order. Upon arrival to unit and beginning hand-off report to MARCELO Pedraza, patient states she wants to speak to the nursing reactor fueling supervisor. Patient is adamant on leaving the hospital to smoke. Gave education on nicotine patch and no smoking policy. Patient refused. 13:40- MARCELO Hale arrived on unit to speak with patient. Patient agree to sign AMA form. Patient refused to go over belonging checklist. Patient has no heart monitor. IV SL on left wrist will be removed by Keila ROBERTSON. Will contact primary doctor Jamie for the update. Addendum: 12/16/18 at 1354 by Lebron Payne RN *Patient REFUSED to sign AMA form. IV SL was removed by MARCELO Pedraza
--- NOTE | 2018-12-16 14:06 | NUR ---
NURSE NOTES: Patient transferred to unit with RN; during report exchange, patient came to nurses station and demanding to go outside to smoke. Per patient, staff member from previous unit had allowed patient to go smoke outside and return to unit. Explained to patient that this is a non smoking hospital. Nicotine patch had previously been ordered. Patient stating it does not work. Patient requesting to speak with hydroelectric powerplant supervisor. ramp supervisor Sha in floor and explained to patient we cannot allow her to go outside to smoke. Patient stating she will go to corner and come right back. Verbalized to patient she cannot go to street and come back, that is leaving AMA. Patient stated at first she will sign form but later stating she will not sign it because she is not leaving AMA, we are "kicking her out". Verbalized to patient nobody is kicking her out but if she doesn't want to follow hospital policy, we are not a locked facility and she can leave anytime. Patient refused to have belongings checked. She allowed me to remove IV and ID band. Patient escorted to [facility] and left hospital. MD Dr. Ayala made aware.
--- NOTE | 2018-12-16 15:16 | Progress Note ---
DATE: 12/16/2018 SUBJECTIVE: This is a 53-year-old female patient came in with uncontrolled seizures, but she continues to have some depression, confusion, mood lability, but mostly insomnia, worsened by stress of her medical illness. That is why, her attending has requested daily psychiatric consultation. Seen and assessed the patient in her room today. She was still complaining of high levels of insomnia mostly triggered by anxiety and depression. DIAGNOSIS: Major depressive disorder, severe, recurrent without psychotic features. PLAN: Treat her with a medication regimen of trazodone 100 mg at bedtime, Remeron 15 mg at bedtime. Provide her with 20 minutes of reality-based supportive psychotherapy. Chart reviewed. Discussed with staff. The patient seen and assessed at bedside. Balbina Campo M.D. DR: HONG JOB#: [id number] CC:
[2018-12-16] MEDS ORDERED: Topiramate 25mg tab ORAL SCH ×2 (21:00)
--- NOTE | 2018-12-17 01:31 | Consultation ---
DATE OF CONSULTATION: 12/16/2018 NEUROLOGIC CONSULTATION HISTORY OF PRESENT ILLNESS: The patient was seen by me on the last admission in November. She was discharged in November 2018 for headaches and seizures. She has been having seizures since July and has had increasing depression and anxiety since that time. The patient has had trouble sleeping and he was not eating. She states that on 12/08/2018, she had a seizure during her sleep, but did not go and see any doctor at that time. The patient had another seizure on 12/12/2018. The patient did see Dr. Ayala on 12/13/2018 after another seizure on 12/12/2018. She . She saw . She is very agitated, anxious, and depressed. The patient was then brought to the emergency room and admitted. Her CBC on admission reveals normal hemoglobin with normal platelet count and white count. Chemistries were normal on admission except for slightly low glucose of 69 and slightly elevated alkaline phosphatase of 117. The patient's TSH yesterday was 1.621. Her electrolytes are within normal including calcium, but magnesium is not obtained. BUN and creatinine are normal. The patient on admission had a CT scan of the brain, which was intact. The patient did see me on the last admission, she was on Keppra, I increased the dose from 1500 mg a day. She states that she has been taking medications. She has been having headaches, which are daily lasting 20 minutes to an hour on either side of her head up to 8 to 9/10 in severity, occasional nausea, but no vomiting. She complains of chills, but no fevers. There is no stiff neck. She denies any significant memory loss, gait disorder, muscle weakness, paresthesias, dysesthesias, diplopia, or loss of smell or taste. She does wear glasses for reading. The patient was seen by me on 11/14/2018. At that time, we thought she had a focal seizure with . On 11/16/2018, which is abnormal showing a few isolated T5 sharp and slow wave discharges seen during drowsiness, which was consistent with left posterior temporal epileptogenic focus. The patient denies any hearing loss. She has occasional tenderness and some dizzy spells, but probably no vertigo. She does drink occasionally 1 to 2 shots, but she denies any alcohol 24 hours prior to the most recent seizures. There is no history of head injury or stroke. She denies any glaucoma or kidney stones. PHYSICAL EXAMINATION: VITAL SIGNS: Temperature is 98.4 degrees, pulse is 91, blood pressure 170/82, respiration rate is 20, and pulse oximetry is 99% on room air. HEENT: Examination of the ears, eye, nose, mouth, and throat is basically intact. NECK: Neck is tender, but supple. Carotids are +2 without any bruit. LUNGS: Clear to auscultation. CARDIOVASCULAR: PMI could not be felt. JVP were probably normal and difficult to see. The patient had normal S1 and S2 physiologically split. I could not hear any murmurs, rubs, clicks, S3, or S4. ABDOMEN: Obese. Bowel sounds intact. There is no tenderness, masses, or organomegaly. BACK: There is diffuse tenderness to percussion. EXTREMITIES: Normal. NEUROLOGIC: Mental status, the patient is depressed appearing. Judgment, her judgment was fair. Affect is appropriate to mood, which appeared depressed. Memory, past memory is intact to date of and immediate, immediate recall is 3/3, just recent recall 2/3 objects in 5 minutes. Intellect, similarities are abstract. Orientation time, she knew it is 12/16/2018. She knew it is Monday. Place, she knew she was in the hospital at [facility]. Person, she was oriented to person. Language function, spoken speech was fluent without paraphasias. Repetition and comprehension were intact. There was roght or left confusion or a no finger agnosia. She almost could spell world backwards, spelled incorrectly spelling it "DLORW." CRANIAL NERVE EXAMINATION: CRANIAL NERVE II: Visual hyde are intact to confrontation. CRANIAL NERVES III, IV, AND : Extraocular motility was full. Pupils were 4 mm, round, and light reactive. CRANIAL NERVE V: Facial and corneal sensation intact to light touch. CRANIAL NERVE VII: Facial strength 5/5 bilaterally. CRANIAL NERVE VIII: Auditory acuity is intact bilaterally to whisper. CRANIAL NERVES IX AND X: Gag is intact bilaterally. CRANIAL NERVE XI: Sternocleidomastoid strength is 5/5. CRANIAL NERVE XII: Tongue protrudes in the midline without fasciculations or atrophy. MUSCULOSKELETAL: Muscle bulk and tone are normal. Strength 5/5 proximally and distally without pronator drift. There was no asterixis. Reflexes are +1 in the upper extremities, +1 in the knees, 0 at the ankles with downgoing toes on testing for Babinski response. COORDINATION: Finger, lzbdto-pe-ljne, vqnf-qn-zjva testing, rapid alternating movements are normal. Gait and station not tested. SENSORY: Pinprick, fine touch, proprioception are normal. Double simultaneous stimulation is intact. IMPRESSION: 1. This patient has breakthrough seizures. Currently, she is on trazodone, mirtazapine 15 mg, and low dose Keppra 500 mg every eight hours. She is also given morphine sulfate, Zofran, and lorazepam. The patient's breakthrough seizures may be related to a combination of increasing stress and depression and/or low-dose Keppra, mirtazapine and trazodone could also probably lower the seizure threshold. I am going to increase her Keppra to 3000 mg a day. second anticonvulsant at this time. As far as her headaches are concerned, probably a combination of migraine and stress-induced headaches. The Keppra itself may help her headache. In addition, Topamax 25 mg. It is considerable that the Keppra could be making her depression worse. I am going to at this time. She needs psychiatric input. So, the plan is to increase Keppra to 3 g a day in three divided doses. 2. He is on Topamax 25 mg at bedtime. 3. I will speak about this case. 4. Psychiatric evaluation. Thank you for this interesting case, Dr. Ayala. Chung Sarah MD DR: Preston JOB#: [id number] CC:
--- NOTE | 2018-12-17 15:55 | NUR ---
*-* INSURANCE *-* ALL CLINICALS AND REVIEWS HAVE BEEN FAXED TO: [employer]LE F:[phone]
--- NOTE | 2018-12-17 16:31 | Progress Note ---
DATE: 12/17/2018 SUBJECTIVE: This is a 53-year-old female patient. The patient is confused. The patient continued to have high level of depression and insomnia. DIAGNOSIS: Major depressive disorder, mild, recurrent without psychotic features. PLAN: Treat her with trazodone 100 mg at bedtime and Remeron 15 mg at bedtime. Provide her with 20 minutes of reality-based supportive psychotherapy. Chart reviewed. Discussed with staff. The patient seen and assessed at bedside. Balbina Campo M.D. DR: MARIO JOB#: [id number] CC:
--- NOTE | 2018-12-18 10:46 | Discharge Summary ---
Discharge Summary Discharge Summary _ 12/14/2018 12/16/2018 DATE OF ADMISSION: 12/14/2018 DATE OF DISCHARGE: 12/16/2018 Patient left AGAINST MEDICAL ADVICE REASON FOR ADMISSION: 53 years old female with past medical history of lumbar radiculopathy, recently diagnosed in July last year seizure disorder, presented to emergency room for evaluation due to breakthrough seizure episodes. Patient was previously hospitalized. At that time Keppra dose was increased due to uncontrolled seizures. However patient still reported having seizure episodes at nighttime. Patient was unable to sleep due to seizure and reported being depressed and having daily headaches. Patient denied fever and chills. She denied recent infection or illness. Patient denied head trauma. Patient denied chest pain or shortness of breath. Upon evaluation vital signs revealed mild tachycardia, otherwise were stable. CT of the head revealed no acute intracranial pathology. Urinalysis revealed +1 leukocyte esterase, but otherwise was negative for evidence of UTI. No leukocytosis, stable renal parameters and electrolytes, glucose 69. Urine toxicology screen was positive for marijuana. Patient was admitted for further management CONSULTANTS: front desk auxiliary Dr. Serrato neurologist Dr. Sarah pulmonary Dr. Bryan ID specialist Dr. Arana psychiatrist Dr. Campo [facility] COURSE: Patient was admitted to telemetry floor. Seizure precautions were maintained. Patient was continue on Keppra, Ativan was on board as needed for breakthrough seizure. CT of the head demonstrated no acute cardiopulmonary pathology. On previous visit EEG revealed left posterior temporal epileptogenic focus. MRI of the brain and MRI of neck were unremarkable. Neurologist seen and evaluated patient . According to neurologist , patient's breakthrough seizure may be related to combination of increased stress, depression and low-dose of Keppra. Patient also noted to be on the trazodone , which is known to lower the seizure threshold. Keppra dose was increased. Second anticonvulsant /Topamax started. Due to the concerns of the headache, possibly combination of migraine and stress-induced headaches, Keppra by herself may help with the headache. In addition patient started on the Topamax. Psychiatric evaluation was requested. Due to control of depression. Psychiatrist seen and evaluated patient and diagnosed patient with major depressive disorder, severe, recurrent without psychotic features. Reality-based supportive psychotherapy was provided. Psychiatric medication regimen was optimized as per psychiatrist. Bag Repairer seen patient for management of tachycardia . According to front desk auxiliary, sinus tachycardia was likely due to hypovolemia. Patient was started on IV fluids. Hemodynamic status was closely monitored. Patient was being observed on telemetry floor. Patient was in sinus return. Initial sinus tachycardia resolved. Supplemental oxygen was on board as needed to keep pulse oximetry above 92%. Pulmonary toilet was on standby as needed. Venous duplex bilateral lower extremity revealed no evidence of acute DVT. Patient was counseled on smoking cessation and started on nicotine patch. Patient reported that she was not ready to quit. Patient was counseled to avoid use of illicit street drugs and limit marijuana use as possibly contributing to her headaches as well. Infectious disease specialist seen and evaluated the patient . No evidence of infection. Recommended to monitor patient off antibiotic as patient appeared clinically stable and showed no evidence of infection. HIV test was nonreactive. RPR was nonreactive. Lipid panel was noted to be with elevated total cholesterol and LDL. Patient was hesitant to start statin. Patient was instructed on therapeutic lifestyle changes, including low-fat low- cholesterol diet. GI prophylaxis provided. Bowel regimen instituted. Pain management was addressed. Supportive care provided. Patient decided to leave AGAINST MEDICAL ADVICE. The risks and consequences of signing AGAINST MEDICAL ADVICE were discussed with patient in detail. Patient verbalized understanding, nevertheless signed AMA form and left. FINAL DIAGNOSES: Breakthrough seizures Migraine headache Major depressive disorder, severe, recurrent without psychotic features Hyperlipidemia Nicotine dependency with withdrawal Marijuana use Shreya Matos NP Dec 18, 2018 10:46
== END 2018-12-16 14:07 | disposition left against medical advice (07) | DRG 101 ==
LOC: EMR 11:00 → 2E 12:15 → EDBEDREQ 12:51
DX: G40.909 Epilepsy, unspecified, not intractable, without status epilepticus (principal); F33.2 Major depressive disorder, recurrent severe without psychotic features; F17.203 Nicotine dependence unspecified, with withdrawal; N39.0 Urinary tract infection, site not specified; G43.909 Migraine, unspecified, not intractable, without status migrainosus; F12.90 Cannabis use, unspecified, uncomplicated; G47.00 Insomnia, unspecified; E78.5 Hyperlipidemia, unspecified; R00.0 Tachycardia, unspecified
CPT/HCPCS: 36415; 70450; 80048; 80053; 80061; 80299; 80307; 81003; 81025; 82550; 84443; 85025; 86592; 86703; 93005; 93970; 96361; 96374; 96375; 99285

== ENCOUNTER 2018-12-16 14:17 | Inpatient (IN) | payer BC ==
[~2018-12-16] VITALS: Ht 170.2 cm; Wt 80.7 kg
--- NOTE | 2018-12-16 14:17 | NUR ---
PATIENT SIGNED OUT AMA FROM THE HOSPITAL ROOM 415-1 TO GO FOR SMOKE . CALLED THE NURSE TO THE FLOOR STATES SINCE SHE LEFT THEY HAVE GIVEN THE ROOM TO ANOTHER PATIENT . PATIENT WANTS TO BE RE-ADMITTED PAGED DR HARO . INSTRUCTED TO RE-ADMIT TO THE FLOOR NURSING RESIDENTIAL PROPERTY TAX APPRAISER NOTIFIED . NO ROOM AVIKLABLE NOW BUT ROOM AVILABLE SHE WILL ASSIGN ONE
--- NOTE | 2018-12-16 15:14 | Emergency Room Report ---
History of Present Illness General Chief Complaint: Headache Source: Patient Present Illness HPI 53-year-old female patient presents the ER complaining of "I need to be readmitted". Patient reports that she was on telemetry in the ER also 1 hour ago when she left AMA because she "want to smoke a cigarette". Reports that she had been given nicotine patches while here but it wasn't "doing anything". Reports that she was admitted for migraine, seizure, insomnia, anxiety. Denies vomiting or vision changes. Denies chest pain or shortness of breath. Denies other aggravating or relieving factors. Allergies: Coded Allergies: No Known Allergies (Unverified , 11/13/18) Patient History Past Medical History: see triage record Last Menstrual Period: na Reviewed Nursing Documentation: PMH: Agreed; PSxH: Agreed Nursing Documentation-PMH Past Medical History: No History, Except For Hx Cardiac Problems: No Hx Cancer: No Hx Gastrointestinal Problems: No Hx Neurological Problems: Yes Hx Seizures: Yes Review of Systems All Other Systems: negative except mentioned in HPI Physical Exam Vital Signs Date Time Temp Pulse Resp B/P (MAP) Pulse Ox O2 Delivery O2 Flow Rate FiO2 12/16/18 14:41 98.1 100 20 114/80 98 Sp02 EP Interpretation: reviewed, normal General Appearance: well appearing, no apparent distress, alert, GCS 15, non- toxic Head: normocephalic, atraumatic Eyes: bilateral eye normal inspection, bilateral eye PERRL ENT: hearing grossly normal, normal pharynx, no angioedema, normal voice, uvula midline, moist mucus membranes Neck: full range of motion Respiratory: lungs clear, normal breath sounds, no rhonchi, no respiratory distress, no accessory muscle use, no wheezing, speaking full sentences Cardiovascular #1: regular rate, rhythm, no edema Gastrointestinal: non tender, soft, no mass, non-distended, no guarding, no rebound Genitourinary: no CVA tenderness Musculoskeletal: back normal, digits/nails normal, gait/station normal, normal range of motion, non-tender Neurologic: alert, oriented x3, responsive, motor strength/tone normal, sensory intact Psychiatric: mood/affect normal Skin: no rash Medical Decision Making PA Attestation Dr. Smith is my supervising Physician whom patient management has been discussed with. Diagnostic Impression: Primary Impression: Headache Additional Impression: History of seizure ER Course Pt. presents to the ED c/o migraine, anxiety, history of seizure, insomnia. Multiple differentials considered. Vital signs: are WNL, pt. is afebrile ER COURSE: Patient had labs drawn earlier today and medication given prior to signing out AMA earlier today, does not require repeat labs or medication currently in the ER. Patient resting comfortably no acute distress, nontoxic-appearing. Will readmit patient. Discussed patient with patient physician Dr. Ayala, will admit patient. - Please note that this Emergency Department Report was dictated using [employer] kayaking guide technology software, occasionally this can lead to erroneous entry secondary to interpretation by the dictation equipment. Last Vital Signs Date Time Temp Pulse Resp B/P (MAP) Pulse Ox O2 Delivery O2 Flow Rate FiO2 12/16/18 14:41 98.1 100 20 114/80 98 Disposition: ADMITTED INPATIENT Condition: Serious Darin Ji Dec 16, 2018 15:14
[2018-12-16 15:20] VITALS: BP 114/80
--- NOTE | 2018-12-16 17:00 | NUR ---
ED Nurse Note: report given to charge nurse by ER charge nurse kendall pt transferred to [place], all belongings sent w/ pt, vss, ambulatory w/ steady gait.
[2018-12-16] MEDS ORDERED: Zolpidem 5mg tab ORAL PRN (17:30)
[2018-12-16] MEDS ORDERED: Mylanta II UD 30ml ORAL PRN (17:30)
[2018-12-16] MEDS ORDERED: Miralax 17gm pkt ORAL PRN (17:30)
--- NOTE | 2018-12-16 17:30 | NUR ---
NURSE NOTES: Patient arrived on unit via hospital bed. Patient is stable. Complains of 9/10 pain and is asking for medication. Will give pain medication as ordered. Patient encouraged to use call light for assistance, verbalized understanding. Patient given teaching about hospital's smoking policy, patient verbalized understanding. Patient oriented to room, call light, and nurses. Patient is in bed with call light within reach. All needs met at this time. Will continue to monitor.
[2018-12-16] MEDS ORDERED: Dextrose 50% 25ml Syringe IV PRN (18:15)
[2018-12-16] MEDS: HYDROcodone/Acetamin 5/325 tab ORAL PRN (18:24)
[2018-12-16] MEDS: Morphine Sulfate 2mg/ml Inj(IV/IM USE ONLY) IVP PRN (18:47)
[2018-12-16] MEDS: LORazepam Inj 2mg/ml 1ml IV PRN (18:47)
--- NOTE | 2018-12-16 19:30 | NUR ---
NURSE NOTES: Received report from MARCELO Jackson. Patient in stable condition. Alert, oriented x4. Bed in lowest position and locked, side rails up x2, padded as seizure precaution. Call light within reach. Saline lock in LFA, intact. Will continue to monitor. Addendum: 12/17/18 at 0354 by Annel Longoria RN Suction setup initiated for seizure precaution.
--- NOTE | 2018-12-16 19:30 | NUR ---
HAND-OFF: Report given to Twan ROBERTSON. Patient is stable.
[2018-12-16 20:00] VITALS: BP 129/94
[2018-12-16] MEDS: Heparin 5000 units/ml inj SUBQ SCH (20:48)
[2018-12-17] VITALS: BP 99/74
[2018-12-17 04:00] VITALS: BP 130/94
[2018-12-17] MEDS: LORazepam Inj 2mg/ml 1ml IV PRN ×3 (04:25→22:23)
[2018-12-17] MEDS: HYDROcodone/Acetamin 5/325 tab ORAL PRN (06:57)
--- NOTE | 2018-12-17 07:30 | NUR ---
NURSE NOTES: Patient is in bed awake and able to verbalize needs. Stable with no s/s acute distress. Patient complains of severe headache and is asking for pain medication. WIll administer pain medication as ordered. Encouraged patient to use call light for assistance, verbalized understanding. Patient is in bed with padded siderails and call light within reach. All seizure precautions provided. WIll continue to monitor.
--- NOTE | 2018-12-17 07:30 | NUR ---
HAND-OFF: Report given to MARCELO Jackson. Patient in stable condition.
[2018-12-17 07:43] LABS: ALANINE AMINOTRANSFERASE 26 U/L (12-78); ALBUMIN 3.2 G/DL (3.4-5.0); ALBUMIN/GLOBULIN RATIO 0.8 (1.0-2.7); ALKALINE PHOSPHATASE 105 U/L (46-116); ANION GAP 7 mmol/L (5-15); ASPARTATE AMINO TRANSFERASE 33 U/L (15-37); BILIRUBIN,TOTAL 0.3 MG/DL (0.2-1.0); BLOOD UREA NITROGEN 15 mg/dL (7-18); CALCIUM 9.4 MG/DL (8.5-10.1); CARBON DIOXIDE 25 MMOL/L (21-32); CHLORIDE 105 MMOL/L (98-107); CREATININE 0.9 MG/DL (0.55-1.30); POTASSIUM 4.2 MMOL/L (3.5-5.1); SODIUM 137 MMOL/L (136-145)
[2018-12-17 07:45] LABS: BASOPHILS % (AUTO) 0.9 % (0.0-2.0); EOSINOPHILS % (AUTO) 3.3 % (0.0-3.0); HEMATOCRIT 42.9 % (37.0-47.0); HEMOGLOBIN 13.4 G/DL (12.0-16.0); LYMPHOCYTES % (AUTO) 35.1 % (20.0-45.0); MEAN CORPUSCULAR VOLUME 99 FL (80-99); MONOCYTES % (AUTO) 6.8 % (1.0-10.0); NEUTROPHILS % (AUTO) 53.8 % (45.0-75.0); PLATELET COUNT 298 K/UL (150-450); RED BLOOD COUNT 4.34 M/UL (4.20-5.40); RED CELL DISTRIBUTION WIDTH 14.1 % (11.6-14.8); WHITE BLOOD COUNT 6.1 K/UL (4.8-10.8)
[2018-12-17 08:00] VITALS: BP 109/83
[2018-12-17] MEDS: Morphine Sulfate 2mg/ml Inj(IV/IM USE ONLY) IVP PRN ×2 (08:09→15:49)
[2018-12-17] MEDS: Heparin 5000 units/ml inj SUBQ SCH ×2 (09:00→20:19)
--- NOTE | 2018-12-17 11:58 | General Progress Note ---
Assessment/Plan Problem List: (1) History of seizure ICD Codes: Z87.898 - Personal history of other specified conditions SNOMED: 358881606 (2) Headache ICD Codes: R51 - Headache SNOMED: 66563588 (3) Insomnia ICD Codes: G47.00 - Insomnia, unspecified SNOMED: 885122317 (4) Depressed ICD Codes: F32.9 - Major depressive disorder, single episode, unspecified SNOMED: 68813179 Status: stable, progressing Assessment/Plan seizure pain control neuro psyc f/u cbc bmp am dc plan Subjective Constitutional: Reports: weakness Allergies: Coded Allergies: No Known Allergies (Unverified , 11/13/18) All Systems: reviewed and negative except above Subjective sleeping better Objective Last 24 Hour Vital Signs Date Time Temp Pulse Resp B/P (MAP) Pulse Ox O2 Delivery O2 Flow Rate FiO2 12/17/18 09:00 Room Air 12/17/18 08:00 97.5 106 20 109/83 (92) 98 12/17/18 04:00 97.7 92 20 130/94 (106) 96 12/17/18 00:00 97.9 90 18 99/74 (82) 98 12/16/18 21:00 Room Air 12/16/18 21:00 Room Air 12/16/18 20:00 98.1 96 18 129/94 (106) 98 12/16/18 17:23 Room Air 12/16/18 17:09 98.1 87 16 114/80 97 Room Air 12/16/18 15:20 98.1 86 18 114/80 98 Room Air 12/16/18 14:41 98.1 100 20 114/80 98 Intake and Output 12/16/18 12/17/18 18:59 06:59 Intake Total 10 ml 980 ml Balance 10 ml 980 ml Intake Oral 10 ml 980 ml # Voids 6 # Bowel Movements 1 Laboratory Tests 12/17/18 05:39: White Blood Count 6.1, Red Blood Count 4.34, Hemoglobin 13.4, Hematocrit 42.9, Mean Corpuscular Volume 99, Mean Corpuscular Hemoglobin 30.8, Mean Corpuscular Hemoglobin Concent 31.1L, Red Cell Distribution Width 14.1, Platelet Count 298, Mean Platelet Volume 5.2L, Neutrophils (%) (Auto) 53.8, Lymphocytes (%) (Auto) 35.1, Monocytes (%) (Auto) 6.8, Eosinophils (%) (Auto) 3.3H, Basophils (%) (Auto ) 0.9, Sodium Level 137, Potassium Level 4.2, Chloride Level 105, Carbon Dioxide Level 25, Anion Gap 7, Blood Urea Nitrogen 15, Creatinine 0.9, Estimat Glomerular Filtration Rate > 60, Glucose Level 84, Calcium Level 9.4, Total Bilirubin 0.3, Aspartate Amino Transf (AST/SGOT) 33, Alanine Aminotransferase ( ALT/SGPT) 26, Alkaline Phosphatase 105, Total Protein 7.3, Albumin 3.2L, Globulin 4.1, Albumin/Globulin Ratio 0.8L Height (Feet): 5 Height (Inches): 7.00 Weight (Pounds): 178 General Appearance: lethargic EENT: normal ENT inspection Neck: normal alignment Cardiovascular: normal peripheral pulses, normal rate, regular rhythm Respiratory/Chest: chest wall non-tender, lungs clear, normal breath sounds Abdomen: normal bowel sounds, non tender, soft Extremities: normal inspection Edema: no edema noted Arm (L), no edema noted Arm (R), no edema noted Leg (L), no edema noted Leg (R), no edema noted Pedal (L), no edema noted Pedal (R), no edema noted Generalized Neurologic: responsive, motor weakness Skin: normal pigmentation, warm/dry Geoffrey Ayala DO Dec 17, 2018 11:58
[2018-12-17 12:00] VITALS: BP 112/76
--- NOTE | 2018-12-17 15:13 | NUR ---
NURSE NOTES: Awaiting response from ST. Will continue to monitor patient.
--- NOTE | 2018-12-17 15:55 | NUR ---
*-* INSURANCE *-* ALL CLINICALS AND REVIEWS HAVE BEEN FAXED TO: [employer]LE F:[phone]
[2018-12-17 16:00] VITALS: BP 106/73
--- NOTE | 2018-12-17 18:30 | NUR ---
NURSE NOTES: Patient approached nursing station and was hostile towards RN and charge nurse. Patient stated, "have a heart and let me have a cigarette." Charge nurse informed patient of non-smoking policy and patient became agitated and continued to disagree with charge nurse. Patient asked to leave AMA then changed her mind. Patient informed of all risks and benefits of non-smoking policy and staying in hospital to continue treatment, patient disagreed and continued to argue with nurses. Patient returned to room, all safety measures provided. Patient is in bed with call light within reach, will continue to monitor.
--- NOTE | 2018-12-17 19:30 | NUR ---
HAND-OFF: Report given to MARCELO Tobin. Patient is stable.
--- NOTE | 2018-12-17 19:48 | NUR ---
NURSE NOTES: Patient is demanding to have ativan IVP for her anxiety, however, ativan IVP is ordered for seizure. Explained to the patient that this medication is indicated for seizure, however, patient states, "My anxiety causes seizure." Contacted Dr. Campo regarding this matter, new orders noted and will be carried out.
[2018-12-17] MEDS ORDERED: LORazepam Inj 2mg/ml 1ml IV PRN (20:00)
--- NOTE | 2018-12-17 20:00 | NUR ---
NURSE NOTES: Report received from Renetta ROBERTSON. Patient is observed in bed, awake, alert, oriented, and able to make needs known. Respiratory even and unlabored. Patient denies pain at this time. Started IV on left hand 22g. Bed is in lowest position with side rails up x2 and brakes are engaged. Patient verbalizes concerns regarding her stay at the hospital. Patient shows increase in agitation and primary RN reassured the patient that all concerns will be addressed as appropriate. Felisha RN is at bedside.
--- NOTE | 2018-12-17 20:02 | History and Physical Report ---
DATE OF ADMISSION: 12/16/2018 DATE AND TIME SEEN: 12/17/2018, approximate time is 12 noon. CONSULTANTS: 1. Oralia Bryan M.D. 2. Balbina Campo M.D. 3. Chung Sarah M.D. 4. Aquilino Galeas M.D. 5. Evans Arana M.D CHIEF COMPLAINT: Headache, urinary tract infection, seizure, insomnia. BRIEF HISTORY: This is a 53-year-old female, who was hospitalized at [facility] 3 days, apparently left AMA because she wanted to smoke and afterwards having headache and pain again and came back to [place], diagnosed with the above, and admitted back to medical floor for further treatment. Currently, calm in bed, sleeping in bed. No complaint. REVIEW OF SYSTEMS: No chest pain. No shortness of breath. No nausea, vomiting, or diarrhea. PAST MEDICAL HISTORY: Headache, UTI, seizure, insomnia, hypertension. PAST SURGICAL HISTORY: None. ALLERGIES: Denies. SOCIAL HISTORY: Positive smoke. Positive alcohol. No intravenous drug abuse. FAMILY HISTORY: Noncontributory. PHYSICAL EXAMINATION: GENERAL: Calm in bed, oriented x3, no acute distress. VITAL SIGNS: Temperature is 97, pulse 106, respirations 20, blood pressure 109/83. CARDIOVASCULAR: No murmurs. LUNGS: Distant and clear. ABDOMEN: Bowel sounds positive. Nontender. Nondistended. EXTREMITIES: No cyanosis or edema. NEUROLOGIC: The patient moves all extremities, slightly weak. LABORATORY DATA: Show CBC is normal. BMP shows albumin 3.2, otherwise BMP is normal. MEDICATIONS: Include clonazepam, mirtazapine, heparin, , diazepam, hydrocodone, aluminium hydroxide, lorazepam, zolpidem, Tylenol, morphine. ASSESSMENT: 1. Headache. 2. UTI. 3. Seizure . 4. Insomnia. 5. Hypertension. 6. Malnutrition. PLAN: 1. Pain control. 2. Seizure, blood pressure control. 3. . 4. Dietary followup. 5. Discharge planning if cleared by team. Geoffrey Ayala D.O. DR: GRADY JOB#: [id number] CC:
--- NOTE | 2018-12-17 20:12 | NUR ---
CASE MANAGEMENT: REVIEW 53/F PRESENTED TO ED FROM HOME CC: HEADACHE SI: SEIZURE . T 98.1 HR 100 RR 20 BP 114/80 SAT 97% ROOM AIR IS: MORPHINE IV VALIUM PO ATIVAN IV PATIENT ADMITTED TO MED/SURG UNIT 12/16/2018 DCP: PATIENT IS FROM HOME
--- NOTE | 2018-12-17 20:20 | NUR ---
NURSE NOTES: Patient claims that Florencioien causes her to have a rxn. Notified Dr. Ayala for alternatives. ordered "temazepam per pharmacy dose," spoke to Georges (pharmacist) regarding this order, per pharmacist, temazepam is not available for pharmacy dosing. Notified Dr. Ayala, new order noted and will be carried out. Also, per , smoking privileges per nurse e commerce project manager. Spoke to nursing supervisor shipping room Geoffrey, and per jefferson sup, ok to have smoking privileges as long as accompanied by RN/INFORMATION TECHNOLOGY DIRECTOR. Will carry out new order.
--- NOTE | 2018-12-17 21:30 | NUR ---
NURSE NOTES: Patient received clonazepam 1mg and remeron 15mg. Patient states that these medications are not effective and does not relieve her insomnia. Patient is seen ambulating around the unit with steady gait. Will continue to monitor.
--- NOTE | 2018-12-17 22:23 | NUR ---
NURSE NOTES: Patient is observed having an increase in agitation. Patient demands to receive ativan 2mg and morphine, primary RN educated the patient the risks of developing respiratory depression when given sedatives, however, patient still adamant in receiving them. After multiple explanation, patient agreed to receive only ativan. Vital signs are as follows: BP: 130/80, RR: 20, HR: 89. Patient refused midnight and 0400 vital signs. Will do frequent monitoring.
[2018-12-17 22:24] VITALS: BP 130/95
--- NOTE | 2018-12-18 01:23 | NUR ---
NURSE NOTES: Patient's asleep but arousable by voice. Denies pain at this time. Refuses vital signs at this time. Visible chest rise observed. Will continue to monitor.
--- NOTE | 2018-12-18 04:08 | NUR ---
NURSE NOTES: Patient is asleep but easily arousable. Visible chest rise observed. Respiratory even and unlabored. Will continue to monitor.
--- NOTE | 2018-12-18 04:15 | Consultation ---
DATE OF CONSULTATION: 12/17/2018 NOTE: POOR AUDIO CONSULTATION PROGRESS NOTE CONSULTING PHYSICIAN: Hector Hathaway PsyD. TREATING ATTENDING: Geoffrey Ayala D.O. HISTORY OF PRESENT ILLNESS: The patient is a 53-year-old female. This patient lives independently in [place]. This patient presented to the hospital for seizure, insomnia, headache. She was admitted to the hospital for these reasons and referred for psychotherapeutic services because of being depressed, helpless, weak and hopeless. This clinician assessed the patient today. The patient states that she has been feeling depressed because she is having the seizure. She has changed her medication and it is difficult for her to adjust to this medication change and when this has occurred, she states that she is unable to work, unable to focus or concentrate. She feels easily tired and and for these reasons, the patient feels very depressed and helpless. Denies suicidal or homicidal thoughts of ideation. Denies any auditory or visual hallucinations. Does not know if she can go back to work because she believes that she needs some time to adjust. The patient has a history of anxiety and depression. PAST MEDICAL HISTORY: Includes a history of headaches, insomnia, seizures. ALLERGIES: The patient denies. SUBSTANCE ABUSE HISTORY: The patient denies history of alcohol use, illicit substance use. PSYCHIATRIC HISTORY: The patient has a history of anxiety and depression. SOCIAL HISTORY: This is a 53-year-old female patient. Lives independently in [place], [place]. Financial, she states that she is currently employed. MENTAL STATUS: The patient is alert and oriented to person, place, time, and situation. Her mood is depressed. Affect oriented. Thought content linear. Fair attention and concentration. Fair insight, judgment, impulse control. DIAGNOSES: Major depressive disorder, moderate and recurrent without psychotic features and generalized anxiety disorder. PLAN: Today, I assessed the patient. Provided the patient with: 1. Supportive psychotherapy, which is an approach to provide the patient with emotional outlet and to cope with emotional distress and helplessness, hopelessness, and depression. 2. Provided the patient with cognitive behavioral therapy, which is an approach which can help problem patterns by problematic. negative and catastrophic thoughts. Address the patient's feelings of depression and helplessness cognitive behavioral therapy, redirecting from negative and catastrophic thoughts. Discussing positive coping skills, positive thought process, and addressing her negative thought process and assisting her in decreasing the negative thoughts and the impact of the negative thoughts on her mood. Continue to assess the patient's mood and depression medication compliance, negative thoughts and increasing positive coping skills. This clinician has reviewed the patient's chart and discussed the treatment with treatment team. Hector Hathaway PsyD. DR: ROSA MARIA JOB#: [id number] CC:
[2018-12-18] MEDS: LORazepam Inj 2mg/ml 1ml IV PRN ×2 (06:21→13:09)
[2018-12-18 06:28] LABS: BASOPHILS % (AUTO) 0.9 % (0.0-2.0); EOSINOPHILS % (AUTO) 2.4 % (0.0-3.0); HEMATOCRIT 40.9 % (37.0-47.0); HEMOGLOBIN 12.9 G/DL (12.0-16.0); MEAN CORPUSCULAR VOLUME 100 FL (80-99); MONOCYTES % (AUTO) 8.5 % (1.0-10.0); NEUTROPHILS % (AUTO) 57.2 % (45.0-75.0); PLATELET COUNT 286 K/UL (150-450); RED CELL DISTRIBUTION WIDTH 14.3 % (11.6-14.8); WHITE BLOOD COUNT 5.5 K/UL (4.8-10.8)
[2018-12-18 06:38] LABS: ANION GAP 9 mmol/L (5-15); BLOOD UREA NITROGEN 15 mg/dL (7-18); CALCIUM 9.3 MG/DL (8.5-10.1); CARBON DIOXIDE 26 MMOL/L (21-32); CHLORIDE 106 MMOL/L (98-107); POTASSIUM 4.3 MMOL/L (3.5-5.1); SODIUM 141 MMOL/L (136-145)
--- NOTE | 2018-12-18 07:20 | NUR ---
HAND-OFF: Report given to Chase ROBERTSON. Patient is in stable condtion. Endorsed patient's concerns to the day shift nurse.
--- NOTE | 2018-12-18 07:32 | NUR ---
NURSE NOTES: Received report from MARCELO Tobin. Rounding done with outgoing nurse. Patient a/o x4 having breakfast. c/o headache 05/18 and will be given pain meds as MD ordered. IV patent. Questions answered. Bed in lowest position, call light within reach. Will continue to monitor.
--- NOTE | 2018-12-18 08:14 | NUR ---
CASE MANAGEMENT:REVIEW 12/18/18 SI: HEADACHE. INSOMNIA H/O SEIZURES 98.3 91 20 130/95 99% ON RA IS: IV ATIVAN Q6HRS PRN ANXIETY KLONOPIN PO QHS REMERON PO QHS HEPARIN SQ Q12 ~ REFUSED NICODERM PATCH Q24 KEPPRA PO TID : MED/SURG STATUS 3 EAST PLAN: DISCHARGE HOME IF CLEARED BY CONSULTANTS
[2018-12-18] MEDS: Morphine Sulfate 2mg/ml Inj(IV/IM USE ONLY) IVP PRN ×3 (08:19→16:39)
[2018-12-18] MEDS: Heparin 5000 units/ml inj SUBQ SCH (09:00)
--- NOTE | 2018-12-18 09:15 | NUR ---
NURSE NOTES: Patient wants to talk to Dr. Campo. Called Dr. Campo and left the message.
--- NOTE | 2018-12-18 09:44 | NUR ---
DISCHARGE SWALLOW/SPEECH THERAPY NOTE: PATIENT REFERRED FOR SWALLOW EVAL. PER RN AND QUICK CHART REVIEW, PATIENT DOES NOT APPEAR TO HAVE S/S OF DYSPHAGIA NOR PERSISTENT NEURO ISSUES POST SZ OUTSIDE OF HOSP. PATIENT ATE 100% OF REGULAR TEXTURE DIET AND THIN LIQUIDS W/O OVERT ASP. PT DENIES SWALLOW PROBLEMS. PLAN: D/C FROM [facility] AT THIS TIME, NO NEED FOR FORMAL SWALLOW EVAL PLEASE RECONSULT IF INDICATED. D/W RN ESCOBAR WHO WILL INFORM DR HARO CONTINUE WITH CURRENT DIET/LIQ
--- NOTE | 2018-12-18 11:03 | NUR ---
NURSE NOTES: Called Dr. Campo and left message.
--- NOTE | 2018-12-18 11:22 | NUR ---
*-* INSURANCE *-* ALL CLINICALS AND REVIEWS HAVE BEEN FAXED TO: [employer] F:[phone] * NEW NUMBER GIVEN BY [employer]* REF# [id number] Addendum: 12/18/18 at 1125 by REFUGIO SOMMER CM REF# [id number] P:[phone] OPT. 6
[2018-12-18 12:00] VITALS: BP 109/88
--- NOTE | 2018-12-18 15:32 | NUR ---
NURSE NOTES: Called Dr. Campo and left the message. No call back yet.
--- NOTE | 2018-12-18 15:45 | NUR ---
CHARGE NURSE NOTES: CALLED Dr Campo twice for discharge clearance & for prescription- left message. called Dr marzena Leonard's administrative library assistant & left message as well. Will await callback.
--- NOTE | 2018-12-18 16:04 | General Progress Note ---
Assessment/Plan Problem List: (1) History of seizure ICD Codes: Z87.898 - Personal history of other specified conditions SNOMED: 020044273 (2) Headache ICD Codes: R51 - Headache SNOMED: 75263922 (3) Insomnia ICD Codes: G47.00 - Insomnia, unspecified SNOMED: 541016230 (4) Depressed ICD Codes: F32.9 - Major depressive disorder, single episode, unspecified SNOMED: 36963102 Status: stable, progressing Assessment/Plan seizure pain control neuro psyc f/u dc if clear Subjective Constitutional: Reports: weakness Allergies: Coded Allergies: No Known Allergies (Unverified , 11/13/18) All Systems: reviewed and negative except above Subjective sleeping better Objective Last 24 Hour Vital Signs Date Time Temp Pulse Resp B/P (MAP) Pulse Ox O2 Delivery O2 Flow Rate FiO2 12/18/18 12:00 98.8 98 18 109/88 (95) 99 12/18/18 09:00 Room Air 12/17/18 22:24 91 20 130/95 (107) 99 12/17/18 21:00 Room Air Intake and Output 12/17/18 12/18/18 19:00 07:00 Intake Total 400 ml Balance 400 ml Intake Oral 400 ml # Voids 2 4 Laboratory Tests 12/18/18 05:35: White Blood Count 5.5, Red Blood Count 4.10L, Hemoglobin 12.9, Hematocrit 40.9, Mean Corpuscular Volume 100H, Mean Corpuscular Hemoglobin 31.3H, Mean Corpuscular Hemoglobin Concent 31.4L, Red Cell Distribution Width 14.3, Platelet Count 286, Mean Platelet Volume 5.6L, Neutrophils (%) (Auto) 57.2, Lymphocytes (%) (Auto) 31.0, Monocytes (%) (Auto) 8.5, Eosinophils (%) (Auto) 2.4, Basophils (%) (Auto) 0.9, Sodium Level 141, Potassium Level 4.3, Chloride Level 106, Carbon Dioxide Level 26, Anion Gap 9, Blood Urea Nitrogen 15, Creatinine 1.0, Estimat Glomerular Filtration Rate > 60, Glucose Level 91, Calcium Level 9.3 Height (Feet): 5 Height (Inches): 7.00 Weight (Pounds): 178 General Appearance: alert EENT: normal ENT inspection Neck: normal alignment Cardiovascular: normal peripheral pulses, normal rate, regular rhythm Respiratory/Chest: chest wall non-tender, lungs clear, normal breath sounds Abdomen: normal bowel sounds, non tender, soft Extremities: normal inspection Edema: no edema noted Arm (L), no edema noted Arm (R), no edema noted Leg (L), no edema noted Leg (R), no edema noted Pedal (L), no edema noted Pedal (R), no edema noted Generalized Neurologic: responsive, motor weakness Skin: normal pigmentation, warm/dry Geoffrey Ayala DO Dec 18, 2018 16:04
--- NOTE | 2018-12-18 16:22 | NUR ---
P.T NOTE: PATIENT NOT APPROPRIATE FOR SKILLED P.T SERVICE PATIENT IS CURRENTLY AT BASELINE FUNCTION. PATIENT IS INDEPENDENT FOR ALL ADL/FUNCTIONAL MOBILITIES AND GAIT/LOCOMOTION. DC P.T SERVICES . THANK YOU FOR THIS REFERRAL. Addendum: 12/18/18 at 1622 by KYLEE LOPEZ PT Amended: Links added.
[2018-12-18] MEDS ORDERED: ACETAMINOPHEN325 M1 ORAL (17:11)
[2018-12-18] MEDS ORDERED: MYLANTA II30 ML ORAL (17:13)
[2018-12-18] MEDS ORDERED: NICODERM 7MG/24H1 EA TD (17:14)
[2018-12-18] MEDS ORDERED: ZOFRAN4 M1 ORAL (17:15)
[2018-12-18] MEDS ORDERED: TEMAZEPAM7.5 MG ORAL (17:16)
[2018-12-18] MEDS ORDERED: MIRALAX17 G2 ORAL (17:16)
[2018-12-18] MEDS ORDERED: ATIVAN2 MG ORAL (17:24)
--- NOTE | 2018-12-18 17:26 | Consultation ---
History of Present Illness General Date patient seen: Dec 18, 2018 Chief Complaint: Present Illness Allergies: Coded Allergies: No Known Allergies (Unverified , 11/13/18) Medication History Scheduled Cephalexin* (Keflex*), 500 MG ORAL TID Clonazepam (Clonazepam), 1 MG ORAL BEDTIME Famotidine (Pepcid), 20 MG ORAL DAILY Hydrocodone/Acetaminophen (Lortab 7.5-325 mg Tablet), 1 EACH PO Q6HR Lactulose (Lactulose*), 30 ML ORAL BID Levetiracetam (Keppra), 500 MG ORAL TID, (Reported) Mirtazapine* (Mirtazapine*), 15 MG ORAL BEDTIME Nicotine (Nicotine Patch), 1 EA TD DAILY, (Reported) No Known Medications* (NKM - No Known Medications*), 0 ., (Reported) Permethrin (Permethrin), 1 APPLIC TOPIC ONCE Temazepam (Temazepam*), 7.5 MG ORAL BEDTIME, (Reported) Scheduled PRN Acetaminophen* (Acetaminophen 325MG Tablet*), 650 MG ORAL Q4H PRN for Prn Headache/Temp > 101, (Reported) Al Hydroxide/mg Hydroxide (Mag-Al Plus Suspension), 30 ML ORAL Q6HR PRN for PRN dyspepsia, (Reported) Diazepam* (Valium*), 5 MG ORAL TID PRN for spasm Hydrocodone Bit/Acetaminophen 5-325* (Blaine 5-325*), 1 TAB ORAL Q6H PRN for For Pain Hydrocodone Bit/Acetaminophen 5-325* (Blaine 5-325*), 1 TAB ORAL Q6H PRN for For Pain Hydrocodone/Acetaminophen 7.5-325* (Hydrocodon-Acetaminoph 7.5-325*), 1 TAB ORAL Q6H PRN for For Pain Lorazepam* (Ativan*), 2 MG ORAL Q6HR PRN for For Anxiety, (Reported) Ondansetron (Zofran), 4 MG ORAL Q6H PRN for Nausea & Vomiting, (Reported) Polyethylene Glycol 3350* (Miralax*), 17 GM ORAL DAILY PRN for Insomnia, ( Reported) Tramadol Hcl* (Ultram*), 50 MG ORAL Q6H PRN for For Pain Patient History Healthcare decision maker Deann[place] Resuscitation status Full Code Advanced Directive on File No Physical Exam Last 24 Hour Vital Signs Date Time Temp Pulse Resp B/P (MAP) Pulse Ox O2 Delivery O2 Flow Rate FiO2 12/18/18 12:00 98.8 98 18 109/88 (95) 99 12/18/18 09:00 Room Air 12/17/18 22:24 91 20 130/95 (107) 99 12/17/18 21:00 Room Air Intake and Output 12/17/18 12/18/18 19:00 07:00 Intake Total 400 ml Balance 400 ml Intake Oral 400 ml # Voids 2 4 Laboratory Tests Test 12/18/18 05:35 White Blood Count 5.5 K/UL (4.8-10.8) Red Blood Count 4.10 M/UL (4.20-5.40) L Hemoglobin 12.9 G/DL (12.0-16.0) Hematocrit 40.9 % (37.0-47.0) Mean Corpuscular Volume 100 FL (80-99) H Mean Corpuscular Hemoglobin 31.3 PG (27.0-31.0) H Mean Corpuscular Hemoglobin Concent 31.4 G/DL (32.0-36.0) L Red Cell Distribution Width 14.3 % (11.6-14.8) Platelet Count 286 K/UL (150-450) Mean Platelet Volume 5.6 FL (6.5-10.1) L Neutrophils (%) (Auto) 57.2 % (45.0-75.0) Lymphocytes (%) (Auto) 31.0 % (20.0-45.0) Monocytes (%) (Auto) 8.5 % (1.0-10.0) Eosinophils (%) (Auto) 2.4 % (0.0-3.0) Basophils (%) (Auto) 0.9 % (0.0-2.0) Sodium Level 141 MMOL/L (136-145) Potassium Level 4.3 MMOL/L (3.5-5.1) Chloride Level 106 MMOL/L (98-107) Carbon Dioxide Level 26 MMOL/L (21-32) Anion Gap 9 mmol/L (5-15) Blood Urea Nitrogen 15 mg/dL (7-18) Creatinine 1.0 MG/DL (0.55-1.30) Estimat Glomerular Filtration Rate > 60 mL/min (>60) Glucose Level 91 MG/DL (74-106) Calcium Level 9.3 MG/DL (8.5-10.1) Height (Feet): 5 Height (Inches): 7.00 Weight (Pounds): 178 Medications Current Medications Medications (Trade) Dose Ordered Sig/Hao Route PRN Reason Start Time Stop Time Status Last Admin Dose Admin Acetaminophen (Tylenol) 650 mg Q4H PRN ORAL fever (T>100.5) 12/16/18 17:30 01/15/19 17:29 Acetaminophen/ Hydrocodone Bitart (Blaine ) 1 tab Q6H PRN ORAL Moderate Pain (Pain Scale 4-6) 12/18/18 17:30 12/25/18 17:29 Al Hydroxide/Mg Hydroxide (Mylanta II) 30 ml Q6H PRN ORAL dyspepsia 12/16/18 17:30 01/15/19 17:29 Clonazepam (KlonoPIN) 1 mg BEDTIME ORAL 12/16/18 21:00 12/23/18 20:59 12/17/18 20:16 Dextrose (Dextrose 50%) 25 ml Q30M PRN IV Hypoglycemia 12/16/18 18:15 01/15/19 18:01 Dextrose (Dextrose 50%) 50 ml Q30M PRN IV hypoglycemia 12/16/18 18:15 01/15/19 18:14 Diazepam (Valium) 5 mg TIDPRN PRN ORAL spasm 12/16/18 17:30 12/23/18 17:29 12/17/18 17:54 Heparin Sodium (Porcine) (Heparin 5000 units/ml) 5,000 units EVERY 12 HOURS SUBQ 12/16/18 21:00 01/15/19 20:59 12/16/18 20:48 Levetiracetam (Keppra) 500 mg TID ORAL 12/16/18 18:00 01/15/19 17:59 12/18/18 13:09 Lorazepam (Ativan 2mg/ml 1ml) 2 mg Q1H PRN IV seizures 12/16/18 17:30 12/23/18 17:29 12/17/18 08:09 Lorazepam (Ativan 2mg/ml 1ml) 2 mg Q6H PRN IV For Anxiety 12/17/18 22:30 12/24/18 22:29 12/18/18 13:09 Mirtazapine (Remeron) 15 mg BEDTIME ORAL 12/16/18 21:00 01/15/19 20:59 12/17/18 20:16 Morphine Sulfate (Morphine Sulfate) 2 mg Q4H PRN IVP Severe Pain (Pain Scale 7-10) 12/18/18 11:30 12/25/18 11:29 12/18/18 16:39 Nicotine (Nicoderm) 1 patch Q24H TDERMAL 12/16/18 20:00 01/15/19 19:59 12/17/18 20:16 Ondansetron HCl (Zofran) 4 mg Q6H PRN IVP Nausea & Vomiting 12/16/18 17:30 01/15/19 17:29 Polyethylene Glycol (Miralax) 17 gm HSPRN PRN ORAL Constipation 12/16/18 17:30 01/15/19 17:29 Temazepam (Restoril) 7.5 mg HSPRN PRN ORAL Insomnia 12/17/18 21:15 12/24/18 21:14 Assessment/Plan Assessment/Plan (1) Lumbar Herniated disc (2) Lumbar Radiculopathy (3) Seizure disorder seen dictated Harry Tyson Dec 18, 2018 17:26
[2018-12-18] MEDS ORDERED: HYDROcodone/Acetamin 10/325 tab ORAL PRN (17:30)
--- NOTE | 2018-12-18 18:01 | NUR ---
NURSE NOTES: Dr. Campo called and orderd only temazepam allowed. Noted and carried out.
--- NOTE | 2018-12-18 18:02 | NUR ---
NURSE NOTES: Dr. Campo ordered only temazepam allowed to take home. No diazepam, ativan. Noted and gave instruction to patient. Addendum: 12/18/18 at 1827 by Johana Ferrell RN ADDENDUM Discharge meds already finalized so crossed out diazepam, ativan on discharge paper.
--- NOTE | 2018-12-18 18:15 | Progress Note ---
DATE: 12/18/2018 SUBJECTIVE: This is a 53-year-old female patient with seizure disorder, status post migraine, and insomnia. The patient continues to complain of depression, insomnia, and mood lability. PLAN: Treat her with Remeron 15 mg at bedtime and trazodone 100 mg at bedtime. Provide her with 20 minutes of reality-based supportive psychotherapy. Chart reviewed. Discussed with staff. The patient seen and assessed at bedside. Balbina Campo M.D. DR: MARIO JOB#: [id number] CC:
--- NOTE | 2018-12-18 18:24 | NUR ---
NURSE NOTES: Discharge instruction was given. Belongings checked with the patient. IV line removed. Patient discharged in stable condition.
--- NOTE | 2018-12-19 12:38 | Discharge Summary ---
Discharge Summary Discharge Summary _ DATE OF ADMISSION: 12/16/2018 DATE OF DISCHARGE: 12/18/2018 DISCHARGED BY: Dr. Ayala REASON FOR ADMISSION: 53 years old female, who signed AGAINST MEDICAL ADVICE because she wanted to smoke cigarettes, presented to emergency department complaining that she wants to be readmitted. Patient with recurrent seizure disorder. Patient reported, that she had been given nicotine patch , but it was not working for her. No seizures between signing AGAINST MEDICAL ADVICE and appearance in emergency department. She denied vomiting . She denied vision changes . She denied chest pain and shortness of breath . Upon evaluation vital signs were stable. Laboratory workup revealed no leukocytosis ,stable hemoglobin ,hematocrit , stable electrolytes and renal parameters. Patient was admitted for further management. CONSULTANTS: psychiatrist Dr. Campo pain specialist Dr. Cedeno HOSPITAL COURSE: Patient admitted to medical surgical floor Patient restarted on anti-convulsive medication as per prior neurology recommendation on previous admission. Ativan was on board as needed for breakthrough seizure. Seizure precautions were maintained. No evidence of seizure activity while in the hospital. Pain management was addressed as per pain specialist recommendation for lumbar herniated disc and lumbar radiculopathy. Psychiatrist seen and evaluated patient. According to psychiatrist, patient had depression, insomnia and mood lability. Psychiatric medication regimen was optimized as per psychiatrist. Patient was provided with reality-based supportive psychotherapy. DVT prophylaxis provided. Patient was continued on nicotine patch. Patient was counseled on smoking cessation. Bowel regimen instituted . Supportive care provided. Patient clinically stabilized and was ready for discharge home. FINAL DIAGNOSES: Seizure disorder Depression Anxiety Headaches Lumbar herniated disc Lumbar radiculopathy DISCHARGE MEDICATIONS: See Medication Reconciliation list. DISCHARGE INSTRUCTIONS: Patient was discharged home. Follow up with primary care provider in one week. I have been assigned to dictate discharge summary for this account. I was not involved in the patient's management. Shreya Matos NP Dec 19, 2018 12:38
== END 2018-12-18 18:15 | disposition home or self-care (01) | DRG 101 ==
LOC: EDBEDREQ 15:19 → EMR 15:20 → 4E 16:24 → 3E 16:41
DX: G40.909 Epilepsy, unspecified, not intractable, without status epilepticus (principal); E46 Unspecified protein-calorie malnutrition; F33.1 Major depressive disorder, recurrent, moderate; N39.0 Urinary tract infection, site not specified; R51 Headache; F41.9 Anxiety disorder, unspecified; M51.16 Intervertebral disc disorders with radiculopathy, lumbar region; G47.00 Insomnia, unspecified; F17.200 Nicotine dependence, unspecified, uncomplicated
CPT/HCPCS: 36415; 80048; 80053; 80299; 85025; 99285

== ENCOUNTER 2018-12-28 20:08 | Emergency (ER) | payer BC ==
[~2018-12-28] VITALS: Ht 167.6 cm; Wt 81.6 kg
[~2018-12-28 20:08] MED LIST changes: +ACETAMINOPHEN325 M1 ORAL; +ATIVAN2 MG ORAL; +MIRALAX17 G2 ORAL; +MYLANTA II30 ML ORAL; +NICODERM 7MG/24H1 EA TD; +TEMAZEPAM7.5 MG ORAL; +ZOFRAN4 M1 ORAL
[2018-12-28 20:30] VITALS: BP 111/67
--- NOTE | 2018-12-28 20:30 | NUR ---
ED Nurse Note: PT walked in c/o possible seizure, pt states she might have had one last night while she was sleeping and when she woke up today pt states she was more tired and exhausted than usual and happens when she has sz. pt AA&ox4, gcs=15, skin warm and dry, resp even and unlabord on RA, -n/v/d, ambulates w/ steady and slow gait. Pt vss, airway intact, NSR on nipple machine operator, will cont monitor. SEizure precaution and aspiration precaution started and inplace.
[2018-12-28] MEDS ORDERED: Tylenol #3 tab (300mg/30mg) ORAL ONE (20:45)
--- NOTE | 2018-12-28 21:00 | NUR ---
ED Nurse Note: accuchmp 83, ermd notified.
[2018-12-28 21:35] LABS: BASOPHILS % (AUTO) 1.1 % (0.0-2.0); HEMATOCRIT 43.9 % (37.0-47.0); HEMOGLOBIN 14.2 G/DL (12.0-16.0); LYMPHOCYTES % (AUTO) 40.6 % (20.0-45.0); MEAN CORPUSCULAR VOLUME 97 FL (80-99); MONOCYTES % (AUTO) 4.4 % (1.0-10.0); NEUTROPHILS % (AUTO) 52.8 % (45.0-75.0); PLATELET COUNT 402 K/UL (150-450); RED BLOOD COUNT 4.54 M/UL (4.20-5.40); WHITE BLOOD COUNT 8.4 K/UL (4.8-10.8)
[2018-12-28 21:43] LABS: ANION GAP 15 mmol/L (5-15); BLOOD UREA NITROGEN 17 mg/dL (7-18); CALCIUM 9.2 MG/DL (8.5-10.1); CARBON DIOXIDE 21 MMOL/L (21-32); CHLORIDE 102 MMOL/L (98-107); CREATININE 0.9 MG/DL (0.55-1.30); POTASSIUM 4.3 MMOL/L (3.5-5.1); SODIUM 138 MMOL/L (136-145)
--- NOTE | 2018-12-28 21:45 | NUR ---
ED Nurse Note: pt states she still has HALL ERMD notified.
[2018-12-28 21:48] LABS: ALANINE AMINOTRANSFERASE 38 U/L (12-78); ALBUMIN 3.6 G/DL (3.4-5.0); ALBUMIN/GLOBULIN RATIO 0.8 (1.0-2.7); ALKALINE PHOSPHATASE 143 U/L (46-116); ASPARTATE AMINO TRANSFERASE 31 U/L (15-37); BILIRUBIN,TOTAL 0.2 MG/DL (0.2-1.0)
[2018-12-28] MEDS ORDERED: Metoclopramide 10mg/2ml Inj IVP ONE (22:15)
[2018-12-28] MEDS ORDERED: Morphine Sulfate 4mg/ml Inj (IV USE ONLY) IVP ONE (22:15)
[2018-12-28] MEDS ORDERED: Ketorolac 30mg Inj IV ONE (22:15)
[2018-12-28 22:42] VITALS: BP 144/67
--- NOTE | 2018-12-28 22:42 | NUR ---
ED Nurse Note: pt cleared to be d/c per ERMD, pt advised to follow up with pcp and neurologist regarding pts condition per ERMD, pt discharge and aftercare instruction provided, pt req to go home, pt AA&ox4, gcs=15, resp even and unlabored on RA, no adverse reaction occured from medication, pt reports mild pain relief from medication denies nausea. Pt VSS, left w/ all belongings, iv d/c and wristband removed, pt education done via discussion and handout, pt verbalized understanding and agrees with plan, pt was accompanied by sister, pt steady gait.
--- NOTE | 2018-12-28 22:51 | Emergency Room Report ---
History of Present Illness General Chief Complaint: Seizure Source: Patient, Family Member Present Illness HPI 53-year-old female presents ED for evaluation. Complaining of seizure. Had seizure today at home. Brought in by family member. Patient notes history of seizures. Takes Keppra. States she is otherwise compliant with the medication. States that the Keppra does give her a headache. Dull, 5 out of 10 , nonradiating. Recently diagnosed with seizures and July 2018. Admits to alcohol use today. Denies drug use. No other aggravating relieving factors. Denies any other associated symptoms Allergies: Coded Allergies: No Known Allergies (Unverified , 11/13/18) Patient History Past Medical History: seizures Past Surgical History: none Pertinent Family History: none Social History: Reports: alcohol use, drug use; Denies: smoking Last Menstrual Period: sep 2018 Now: No Immunizations: UTD Reviewed Nursing Documentation: PMH: Agreed; PSxH: Agreed Nursing Documentation-PMH Hx Cardiac Problems: No Hx Cancer: No Hx Gastrointestinal Problems: No Hx Neurological Problems: Yes Hx Seizures: Yes Review of Systems All Other Systems: negative except mentioned in HPI Physical Exam Vital Signs Date Time Temp Pulse Resp B/P (MAP) Pulse Ox O2 Delivery O2 Flow Rate FiO2 12/28/18 20:23 98.4 87 13 109/84 100 Room Air Sp02 EP Interpretation: reviewed, normal General Appearance: no apparent distress, alert, GCS 15, non-toxic Head: normocephalic, atraumatic Eyes: bilateral eye normal inspection, bilateral eye PERRL, bilateral eye EOMI ENT: hearing grossly normal, normal pharynx, no angioedema, normal voice Neck: full range of motion, supple/symm/no masses Respiratory: chest non-tender, lungs clear, normal breath sounds, speaking full sentences Cardiovascular #1: regular rate, rhythm, no edema Cardiovascular #2: 2+ carotid (R), 2+ carotid (L), 2+ radial (R), 2+ radial (L) , 2+ dorsalis pedis (R), 2+ dorsalis pedis (L) Gastrointestinal: normal bowel sounds, non tender, soft, non-distended, no guarding, no rebound Rectal: deferred Genitourinary: normal inspection, no CVA tenderness Musculoskeletal: back normal, gait/station normal, normal range of motion, non- tender Neurologic: alert, oriented x3, responsive, motor strength/tone normal, sensory intact, speech normal Psychiatric: judgement/insight normal, memory normal, mood/affect normal, no suicidal/homicidal ideation Reflexes: 3+ bicep (R), 3+ bicep (L), 3+ tricep (R), 3+ tricep (L), 3+ knee (R) , 3+ knee (L) Skin: normal color, no rash, warm/dry, well hydrated Lymphatic: no adenopathy Medical Decision Making Diagnostic Impression: Primary Impression: Seizure disorder Additional Impressions: Alcohol intoxication Qualified Codes: F10.929 - Alcohol use, unspecified with intoxication, unspecified Marijuana abuse ER Course Hospital Course 53-year-old F presents to ED status post seizure. Differential diagnosis includes- breakthrough seizure, alcohol abuse, noncompliance with medication Clinical course Patient placed on stretcher. Initial history and physical I ordered labs, IV fluids Labs-electrolytes okay, no leukocytosis, hemoglobin/hematocrit stable. Alcohol level elevated, Utox + THC Discussed with neurologist Dr. Sarah who consulted on patient during her hospitalizations. I explained the patient would like to change her medication of Keppra. He stated that we could start patient on loading dose of Dilantin here and start patient on Dilantin. However she would have to taper the Keppra and not stop completely Discussed this option with the patient. She states she would prefer to continue the Keppra for now. Took her evening dose here. I explained to the patient that marijuana and alcohol lowered his seizure threshold. Patient states she understands. Safe for discharge and close outpatient follow-up. discussed case with PMD Dr Ayala Diagnosis - seizure disorder, alcohol intoxication, marijuana abuse stable and discharged to home. Continue keppra as directed. avoid marijuana/ alcohol. Followup with PMD/neurologist. Return to ED if symptoms recur or worsen Labs Test 12/28/18 21:16 White Blood Count 8.4 K/UL (4.8-10.8) Red Blood Count 4.54 M/UL (4.20-5.40) Hemoglobin 14.2 G/DL (12.0-16.0) Hematocrit 43.9 % (37.0-47.0) Mean Corpuscular Volume 97 FL (80-99) Mean Corpuscular Hemoglobin 31.3 PG (27.0-31.0) Mean Corpuscular Hemoglobin Concent 32.3 G/DL (32.0-36.0) Red Cell Distribution Width 14.0 % (11.6-14.8) Platelet Count 402 K/UL (150-450) Mean Platelet Volume 5.0 FL (6.5-10.1) Neutrophils (%) (Auto) 52.8 % (45.0-75.0) Lymphocytes (%) (Auto) 40.6 % (20.0-45.0) Monocytes (%) (Auto) 4.4 % (1.0-10.0) Eosinophils (%) (Auto) 1.0 % (0.0-3.0) Basophils (%) (Auto) 1.1 % (0.0-2.0) Sodium Level 138 MMOL/L (136-145) Potassium Level 4.3 MMOL/L (3.5-5.1) Chloride Level 102 MMOL/L (98-107) Carbon Dioxide Level 21 MMOL/L (21-32) Anion Gap 15 mmol/L (5-15) Blood Urea Nitrogen 17 mg/dL (7-18) Creatinine 0.9 MG/DL (0.55-1.30) Estimat Glomerular Filtration Rate > 60 mL/min (>60) Glucose Level 78 MG/DL (74-106) Calcium Level 9.2 MG/DL (8.5-10.1) Total Bilirubin 0.2 MG/DL (0.2-1.0) Aspartate Amino Transf (AST/SGOT) 31 U/L (15-37) Alanine Aminotransferase (ALT/SGPT) 38 U/L (12-78) Alkaline Phosphatase 143 U/L (46-116) Total Protein 8.3 G/DL (6.4-8.2) Albumin 3.6 G/DL (3.4-5.0) Globulin 4.7 g/dL Albumin/Globulin Ratio 0.8 (1.0-2.7) Urine Opiates Screen Negative (NEGATIVE) Acetaminophen Level < 2 MCG/ML (10-30) Urine Barbiturates Screen Negative (NEGATIVE) Phencyclidine (PCP) Screen Negative (NEGATIVE) Urine Amphetamines Screen Negative (NEGATIVE) Urine Benzodiazepines Screen Negative (NEGATIVE) Urine Cocaine Screen Negative (NEGATIVE) Urine Marijuana (THC) Screen Positive (NEGATIVE) Serum Alcohol 195 mg/dL Last Vital Signs Date Time Temp Pulse Resp B/P (MAP) Pulse Ox O2 Delivery O2 Flow Rate FiO2 12/28/18 20:30 98.4 70 18 111/67 100 Room Air Status: improved Disposition: HOME, SELF-CARE Condition: Stable Referrals: Geoffrey Ayala Jan MD Patient Instructions: Seizure, Adult Anthony Núñez MD Dec 28, 2018 22:51
== END 2018-12-28 22:42 | disposition home or self-care (01) ==
LOC: EMR 20:51
DX: G40.909 Epilepsy, unspecified, not intractable, without status epilepticus (principal); F10.129 Alcohol abuse with intoxication, unspecified; F12.10 Cannabis abuse, uncomplicated
CPT/HCPCS: 36415; 80053; 80307; 85025; 96374; 96375; 99284; G0480; J1885; J2270; J2765; J7040; 80329

== ENCOUNTER 2019-06-14 14:06 | Emergency (ER) | payer BC, MEDICAID ==
[~2019-06-14] VITALS: Ht 167.6 cm; Wt 81.6 kg
[2019-06-14] MEDS ORDERED: BENADRYL25 MG ORAL (14:21)
--- NOTE | 2019-06-14 14:26 | NUR ---
ED Nurse Note: PT WALKED IN TO ER TODAY FROM HOME. AOX4. PT REFERRED TO ER TODAY BY DR PEREZ WHO IS PT'S NEUROLOGIST. REFERRALY MADE DUE TO FALL X 1 WEEK AGO. PT STATES SHE HIT HER HEAD ON A [place] WHEN SHE FELL AND HAD BRIEF LOC PER FAMILY MEMBERS WHO WITNESSED THE FALL. GAIT STEADY IN ER. PT DENIES DIZZINESS, NUMBNESS, TINGLING, NAUSEA, OR VOMITING. PT DOES C/O RIGHT SIDED NECK PAIN RADIATING TO RIGHT SHOULDER AND RIGHT HIP AFTER FALL. PAIN 8/10. FULL ROM OF ALL EXTREMITIES, MUSCLE STRENGTH 5/5 IN ALL EXTREMITIES, NO OBVIOUS INJURIES. PERRLA.
[2019-06-14 14:29] VITALS: BP 122/84
[2019-06-14] MEDS ORDERED: Ketorolac 30mg Inj ONE (14:41)
[2019-06-14] MEDS ORDERED: Methocarbamol 750mg tab ORAL ONE ×2 (14:41→14:45)
[2019-06-14] MEDS ORDERED: Ketorolac 30mg Inj IM ONE (14:45)
[2019-06-14] MEDS ORDERED: Morphine Sulfate 2mg/ml Inj(IV/IM USE ONLY) IM ONE (14:45)
--- NOTE | 2019-06-14 15:00 | NUR ---
ED Nurse Note: PT TO CT VIA [place].
--- NOTE | 2019-06-14 15:45 | Diagnostic Imaging Report ---
Indication: Headache Technique: Contiguous 5 mm thick transaxial imaging of the head obtained in a Siemens Sensation [address] scanner. Soft tissue and bone windows generated. Automatic Exposure Control was utilized. Total Dose length Product (DLP): 1779.[address] Dose Index Volume (CTDIvol): 70.38,18.94 mGy Comparison: 12/14/2018 Findings: The size and configuration of the cortical sulci, basal cisterns, and ventricles are within normal limits for age. There is no mass effect, midline shift, or edema identified. There is no evidence of acute hemorrhage or abnormal intra-axial or extra-axial fluid collections. The bones and soft tissues are unremarkable. Impression: No mass effect, edema or acute bleed. The CT scanner at [facility] is accredited by the [employer] and the scans are performed using dose optimization techniques as appropriate to a performed exam including Automatic Exposure control.
--- NOTE | 2019-06-14 15:50 | Diagnostic Imaging Report ---
Indication: Cervical trauma/pain. Technique: Continuous helical imaging of the cervical spine was obtained transaxially from the skull base to the upper thoracic spine. 2-D coronal and sagittal reformatted images were obtained. Automatic Exposure Control was utilized. Total Dose length Product (DLP): 1779.[address] Dose Index Volume (CTDIvol): 70.38,18.94 mGy Comparison: None Findings: No fracture identified. There is no malalignment. There is a moderate narrowing of intervertebral discs at C4-5 C5-6 and C6-7 with endplate and uncovertebral osteophyte formation. There is some neural foraminal stenosis present. No soft tissue swelling is identified. IMPRESSION: No acute injury identified. Degenerative spondylosis The CT scanner at [facility] is accredited by the [employer] and the scans are performed using dose optimization techniques as appropriate to a performed exam including Automatic Exposure control.
--- NOTE | 2019-06-14 15:53 | Diagnostic Imaging Report ---
Indication: Right thigh Pain Findings: 2 views of the right femur were obtained. No acute fractures, malalignment, erosions or periostitis are identified. There is narrowing of the right hip joint consistent with mild arthrosis. Soft tissues are unremarkable. Impression: Negative for acute injury
--- NOTE | 2019-06-14 15:54 | Diagnostic Imaging Report ---
Indication: Pelvic trauma and pain Findings: Single AP view of the pelvis was performed. No acute fracture is identified. Bilateral hips and sacroiliac joints appear symmetric though narrowed consistent with osteoarthrosis.There is no malalignment. Soft tissues are unremarkable. Impression: No acute findings.
--- NOTE | 2019-06-14 16:02 | NUR ---
ED Nurse Note: PT LAYING PEACEFULLY IN BED IN NAD. AOX4. PRESCRIPTIONS AND DISCHARGE PAPERWORK EXPLAINED TO PT. PT VERBALIZES UNDERSTANDING AND ALL QUESTIONS ANSWERED. PRESCRIPTIONS AND DISCHARGE PAPERWORK GIVEN TO PT AND ID WRISTBAND REMOVED. PT WALKED OUT OF ER WITH STEADY GAIT AND ALL BELONGINGS.
[2019-06-14 16:03] VITALS: BP 124/80
[2019-06-14] MEDS ORDERED: ROBAXIN-750750 MG PO (16:03)
[2019-06-14] MEDS ORDERED: LIDODERM700 M1 TOPIC (16:03)
--- NOTE | 2019-06-14 19:34 | Emergency Room Report ---
History of Present Illness General Chief Complaint: Head Injury Source: Patient Present Illness HPI 53-year-old female presents ED for evaluation. Was referred by neurology get CT head. States that few days ago she had a trip and fall hitting her head. Complaining of headaches and neck pain. Also complaining of right hip pain. Throbbing, 8 out of 10, nonradiating. History of migraines. Is able to walk but with some pain. Denies any other injuries. No other aggravating relieving factors. Denies any other associated symptoms Allergies: Coded Allergies: No Known Allergies (Unverified , 11/13/18) Patient History Past Medical History: seizures, migraines, psych hx Past Surgical History: none Pertinent Family History: none Social History: Denies: smoking, alcohol use, drug use Now: No Immunizations: UTD Reviewed Nursing Documentation: PMH: Agreed; PSxH: Agreed Nursing Documentation-PMH Past Medical History: No History, Except For Hx Cardiac Problems: No Hx Hypertension: No Hx Pacemaker: No Hx Asthma: No Hx COPD: No Hx Diabetes: No Hx Cancer: No Hx Gastrointestinal Problems: No Hx Dialysis: No History Of Psychiatric Problem: Yes - Anxiety Hx Neurological Problems: Yes Hx Cerebrovascular Accident: No Hx Seizures: Yes Review of Systems All Other Systems: negative except mentioned in HPI Physical Exam Vital Signs Date Time Temp Pulse Resp B/P (MAP) Pulse Ox O2 Delivery O2 Flow Rate FiO2 06/14/19 14:11 97.9 97 16 117/89 (98) 98 Room Air Sp02 EP Interpretation: reviewed, normal General Appearance: no apparent distress, alert, GCS 15, non-toxic Head: normocephalic Eyes: bilateral eye normal inspection, bilateral eye PERRL ENT: hearing grossly normal, normal pharynx, no angioedema, normal voice Neck: full range of motion, supple, supple/symm/no masses, tender lateral Respiratory: chest non-tender, lungs clear, normal breath sounds, speaking full sentences Cardiovascular #1: regular rate, rhythm, no edema Gastrointestinal: normal bowel sounds, non tender, soft, non-distended, no guarding, no rebound Rectal: deferred Genitourinary: no CVA tenderness Musculoskeletal: tender - R hip Neurologic: alert, oriented x3, responsive, motor strength/tone normal, sensory intact, speech normal Psychiatric: normal inspection Skin: no rash Lymphatic: normal inspection Medical Decision Making Diagnostic Impression: Primary Impression: Contusion, hip Qualified Codes: S70.01XA - Contusion of right hip, initial encounter Additional Impressions: Cervical strain Qualified Codes: S16.1XXA - Strain of muscle, fascia and tendon at neck level , initial encounter Headache Qualified Codes: R51 - Headache ER Course Hospital Course 53 yo F presents to ED c/o headache, neck pain R hip pain s/p fall Differential diagnoses include: skull fx, intracranial injury, concussion Clinical course Patient placed on stretcher. After initial history and physical I ordered CT head, Cspine, xrays and pain medications CT head and C-spine show no acute process. X-rays show no fracture dislocation Discussed findings with patient. On reassessment pain improved. Safe for discharge for close outpatient follow-up. States she has a neurologist Diagnosis - hip contusion, cervical strain, headache Stable and discharged to home with Rx robaxin, lidoderm. Followup with PMD/ neurology. Return to ED if symptoms recur or worsen Other X-Ray Diagnostic Results Other X-Ray Diagnostic Results #1: X-Ray ordered: R hip # of Views/Limited Vs Complete: 2 View Indication: Pain EP Interpretation: Yes Interpretation: no dislocation, no soft tissue swelling, no fractures Impression: No acute disease Electronically Signed by: Electronically signed by Anthony Núñez MD Other X-Ray Diagnostic Results #2: X-Ray ordered: R femur # of Views/Limited Vs Complete: 3 View Indication: Pain EP Interpretation: Yes Interpretation: no dislocation, no soft tissue swelling, no fractures Impression: No acute disease Electronically Signed by: Electronically signed by Anthony Núñez MD CT/MRI/US Diagnostic Results CT/MRI/US Diagnostic Results #1: Imaging Test Ordered: CT head Impression no acute process CT/MRI/US Diagnostic Results #2: Imaging Test Ordered: CT C spine Impression no acute process Last Vital Signs Date Time Temp Pulse Resp B/P (MAP) Pulse Ox O2 Delivery O2 Flow Rate FiO2 06/14/19 16:03 98.3 84 16 124/80 100 Room Air Status: improved Disposition: HOME, SELF-CARE Condition: Stable Scripts Lidocaine Patch* (Lidoderm Patch*) 1 Each Adh..patch 1 PATCH TOPIC DAILY, #7 PATCH 0 Refills Patch(es) may remain in place for up to 12 hours in any 24-hour period. Prov: Anthony Núñez MD 06/14/19 Methocarbamol* (ROBAXIN-750*) 750 Mg Tablet 750 MG PO TID, #21 TAB 0 Refills Prov: Anthony Núñez MD 06/14/19 Referrals: Chung Sarah MD Patient Instructions: Migraine Headache, [id number] Anthony Núñez MD Jun 14, 2019 19:34
== END 2019-06-14 16:02 | disposition home or self-care (01) ==
LOC: EMR 15:17
DX: S16.1XXA Strain of muscle, fascia and tendon at neck level, initial encounter (principal); R51 Headache; S70.01XA Contusion of right hip, initial encounter; F41.9 Anxiety disorder, unspecified; W01.0XXA Fall on same level from slipping, tripping and stumbling without subsequent striking against object, initial encounter; Y92.9 Unspecified place or not applicable
CPT/HCPCS: 70450; 72125; 72170; 73552; 96372; 99284; J1885; J2270

== ENCOUNTER 2019-10-02 08:19 | Emergency (ER) | payer MEDICAID ==
[~2019-10-02] VITALS: Ht 167.6 cm; Wt 81.6 kg
[~2019-10-02 08:19] MED LIST changes: +LIDODERM700 M1 TOPIC; +ROBAXIN-750750 MG PO
[2019-10-02 08:39] VITALS: BP 116/80
[2019-10-02] MEDS ORDERED: HYDROcodone/Acetamin 5/325 tab PO ONE (08:45)
[2019-10-02] MEDS ORDERED: Bacitracin Oint UD TOPIC ONE (08:45)
--- NOTE | 2019-10-02 08:46 | NUR ---
ED Nurse Note: Patient walked in from home and assisted by WC from waiting room to ER by sister and RN due to post trip and fall incident. pt aao x4 and able to pivot weight. per pt, she went to [employer] party last night and tripped and fell. pt did not have pain and was able to walk home but when she woke up this morning, general body pain especially on bilateral legs was untoleratable. pt c/o bilateral pain 10/10. Lt dixon has scratch without active bleeding or opened area from the fall. pt denied head trauma or LOC at the scene. sister at bedside. ERMD assessing pt.
--- NOTE | 2019-10-02 08:56 | NUR ---
ED Nurse Note: Lt dixon laceration cleaned with NS and gauze and Bacitracin applied. pt tolerated well.
--- NOTE | 2019-10-02 09:18 | Emergency Room Report ---
History of Present Illness General Chief Complaint: Multiple Trauma/Fall Source: Patient, Medical Record Present Illness HPI 54-year-old female presents ED for evaluation. Complaining of bilateral neck pain status post fall. States she was at a alliance party last night and was drinking alcohol. States the room was dimly lit and she fell on some stairs. Denies hitting her head or LOC. Complaining of right knee and thigh pain as well as left dixon pain. Bleeding from the left dixon. Tetanus is up-to-date. Pain is 10 out of 10, dull, nonradiating. Denies any other injuries. No other aggravating relieving factors. Denies any other associated symptoms Allergies: Coded Allergies: No Known Allergies (Unverified , 11/13/18) Patient History Past Medical History: seizures, psych hx Past Surgical History: none Pertinent Family History: none Social History: Reports: alcohol use; Denies: smoking, drug use Last Menstrual Period: N/A 2017 Now: No Immunizations: UTD Reviewed Nursing Documentation: PMH: Agreed; PSxH: Agreed Nursing Documentation-PMH Hx Cardiac Problems: No Hx Hypertension: No Hx Pacemaker: No Hx Asthma: No Hx COPD: No Hx Diabetes: No Hx Cancer: No Hx Gastrointestinal Problems: No Hx Dialysis: No History Of Psychiatric Problem: Yes - Depression, Anxiety Hx Neurological Problems: Yes Hx Cerebrovascular Accident: No Hx Seizures: Yes - Epilepsy Review of Systems All Other Systems: negative except mentioned in HPI Physical Exam Vital Signs Date Time Temp Pulse Resp B/P (MAP) Pulse Ox O2 Delivery O2 Flow Rate FiO2 10/02/19 08:23 97.9 120 18 116/80 (92) 97 Room Air Sp02 EP Interpretation: reviewed, normal General Appearance: no apparent distress, alert, GCS 15, non-toxic Head: normocephalic Eyes: bilateral eye normal inspection, bilateral eye PERRL ENT: normal ENT inspection Neck: normal inspection Respiratory: normal inspection Cardiovascular #1: normal inspection Gastrointestinal: normal inspection Rectal: deferred Genitourinary: no CVA tenderness Musculoskeletal: tender - R knee, distal thigh. L tibfib Neurologic: alert, motor strength/tone normal, oriented x3, sensory intact, responsive, speech normal Psychiatric: judgement/insight normal, memory normal, mood/affect normal, no suicidal/homicidal ideation Skin: laceration - superficial 4cm laceation to L tibfib Lymphatic: normal inspection Medical Decision Making Diagnostic Impression: Primary Impression: Multiple injuries due to trauma ER Course Hospital Course 54-year-old female presents with bilateral leg pain status post trip and fall yesterday Differential diagnoses include: Fracture, dislocation, sprain, contusion Clinical course Patient placed on stretcher. After initial history and physical, I ordered pain medications and Xrays of R knee, femur, and L tibfib Xraysread shows no acute fracture/dislocation. placed in mary jane wrap, given crutches Wound irrigated to left tib-fib. Dressing applied. Discussed findings with patient. Will discharge to home. Safe for discharge for close outpatient follow-up. States she has a PMD Diagnosis - multiple injuries due to trauma Stable and discharged to home with prescription for Tylenol. apply ice, keep elevated. weight bear as tolerated. Followup with PMD. Return to ED if symptoms recur or worsen Other X-Ray Diagnostic Results Other X-Ray Diagnostic Results #1: X-Ray ordered: R knee # of Views/Limited Vs Complete: 3 View Indication: Pain EP Interpretation: Yes Interpretation: no dislocation, no soft tissue swelling, no fractures Impression: No acute disease Electronically Signed by: Electronically signed by Anthony Núñez MD Other X-Ray Diagnostic Results #2: X-Ray ordered: R femur # of Views/Limited Vs Complete: 3 View Indication: Pain EP Interpretation: Yes Interpretation: no dislocation, no soft tissue swelling, no fractures Impression: No acute disease Electronically Signed by: Electronically signed by Anthony Núñez MD Other X-Ray Diagnostic Results #3: X-Ray ordered: L tibfib # of Views/Limited Vs Complete: 2 View Indication: Pain EP Interpretation: Yes Interpretation: no dislocation, no soft tissue swelling, no fractures Impression: No acute disease Electronically Signed by: Electronically signed by Anthony Núñez MD Last Vital Signs Date Time Temp Pulse Resp B/P (MAP) Pulse Ox O2 Delivery O2 Flow Rate FiO2 10/02/19 08:39 97.9 115 18 116/80 97 Room Air Status: improved Disposition: HOME, SELF-CARE Condition: Stable Scripts Bacitracin (Bacitracin) 28.4 Gm Oint...g. 1 APPLIC TOPIC THREE TIMES A DAY, #28.4 GM Prov: Anthony Núñez MD 10/02/19 Acetaminophen* (TYLENOL EXTRA STRENGTH*) 500 Mg Tablet 500 MG ORAL Q8H PRN for Prn Headache/Temp > 101, #30 TAB 0 Refills Prov: Anthony Núñez MD 10/02/19 Referrals: [facility],REFERR[facility] (PCP) Anthony Núñez MD Oct 02, 2019 09:18
--- NOTE | 2019-10-02 09:22 | NUR ---
ED Nurse Note: x-ray at bedside.
--- NOTE | 2019-10-02 09:43 | NUR ---
ED Nurse Note: ERMD explained pt and sister that there is no fracture. Acewrap applied on Rt knee and applied dressing on Lt dixon laceration.
--- NOTE | 2019-10-02 09:44 | NUR ---
ED Nurse Note: crutches applied.
[2019-10-02] MEDS ORDERED: TYLENOL EXTRA500 MG ORAL (09:45)
[2019-10-02] MEDS ORDERED: BACITRACIN15 GM TOPIC (09:45)
[2019-10-02 09:55] VITALS: BP 118/74
--- NOTE | 2019-10-02 09:55 | NUR ---
ED Nurse Note: Pt cleared by health care Provider for discharge. Patient accompanied by sister. DC instructions/prescription was given with crutches instruction and explained to pt and verbalized understanding of teachings. All medical deviecs such as ID band removed. Pt is AAO x4, ambulatory with crutches and left with all personal belongings.
--- NOTE | 2019-10-02 10:24 | Diagnostic Imaging Report ---
EXAM: XR Right Femur, 2 Views CLINICAL HISTORY: FALL TECHNIQUE: Frontal and lateral views of the right femur. COMPARISON: None FINDINGS: Bones/joints: No displaced fracture or dislocation identified. Degenerative change of the right hip. No right knee joint effusion. Soft tissues: Presumed phleboliths in the pelvis. IMPRESSION: No displaced fracture or dislocation identified.
--- NOTE | 2019-10-02 10:25 | Diagnostic Imaging Report ---
EXAM: XR Left Knee, 3 Views CLINICAL HISTORY: FALL TECHNIQUE: Three views of the left knee. COMPARISON: None FINDINGS: Bones/joints: No displaced fracture or dislocation identified. Joint space is maintained. No bony lesion. No joint effusion. Soft tissues: Normal. IMPRESSION: No displaced fracture or dislocation identified.
--- NOTE | 2019-10-02 10:26 | Diagnostic Imaging Report ---
EXAM: XR Left Tibia and Fibula, 2 Views CLINICAL HISTORY: FALL TECHNIQUE: Frontal and lateral views of the left tibia and fibula. COMPARISON: None FINDINGS: Bones/joints: No displaced fracture or dislocation identified. Joint space is maintained. No bony lesion. No joint effusion. Soft tissues: Mild soft tissue swelling, most prominent anteriorly. IMPRESSION: 1. No displaced fracture or dislocation identified. 2. Mild soft tissue swelling, most prominent anteriorly.
== END 2019-10-02 09:55 | disposition home or self-care (01) ==
LOC: EMR 08:50
DX: M79.605 Pain in left leg (principal); M79.604 Pain in right leg; M54.2 Cervicalgia; F32.9 Major depressive disorder, single episode, unspecified; F41.9 Anxiety disorder, unspecified; G40.909 Epilepsy, unspecified, not intractable, without status epilepticus; M25.561 Pain in right knee; M79.651 Pain in right thigh; S81.812A Laceration without foreign body, left lower leg, initial encounter; W19.XXXA Unspecified fall, initial encounter; Y92.9 Unspecified place or not applicable
CPT/HCPCS: 73552; 73562; 73590; Z7502; 99284

== ENCOUNTER 2020-10-19 14:30 | Emergency (ER) | payer MEDICAID ==
[~2020-10-19] VITALS: Ht 167.6 cm; Wt 82.6 kg
[~2020-10-19 14:30] MED LIST changes: +BACITRACIN15 GM TOPIC; +TYLENOL EXTRA500 MG ORAL
--- NOTE | 2020-10-19 14:42 | NUR ---
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 pt reports DROM, px is exacerbated by movement. pt states that she has been taking advil PM for pain without much relief of symptoms
[2020-10-19 14:44] VITALS: BP 131/79
--- NOTE | 2020-10-19 14:46 | NUR ---
ED Nurse Note: she denies loss of bladder or bowel function
[2020-10-19] MEDS ORDERED: Methocarbamol 750mg tab ORAL ONE (15:15)
[2020-10-19] MEDS ORDERED: Ketorolac 30mg Inj IM ONE (15:15)
--- NOTE | 2020-10-19 15:22 | Emergency Room Report ---
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 Reports the pain is worse when trying to sit and stand and bend forward. Rates it 10. Denies any tingling numbness. Denies any urinary bowel incontinence. Denies saddle paresthesia. Denies pain radiation to the leg. Denies any urinary symptoms. Denies . Has taken Advil with minimal relief. Is requesting something to help her sleep at night. Allergies: Coded Allergies: No Known Allergies (Unverified , 11/13/18) COVID-19 Screening Contact w/high risk pt: No Experienced COVID-19 symptoms?: No COVID-19 Testing performed STERILE PROCESS COORDINATOR: No Patient History Past Medical History: see triage record Past Surgical History: none Pertinent Family History: none Now: No Immunizations: UTD Reviewed Nursing Documentation: PMH: Agreed; PSxH: Agreed Nursing Documentation-PMH Hx Cardiac Problems: No Hx Hypertension: No Hx Pacemaker: No Hx Asthma: No Hx COPD: No Hx Diabetes: No Hx Cancer: No Hx Gastrointestinal Problems: No Hx Dialysis: No Hx Neurological Problems: Yes Hx Cerebrovascular Accident: No Hx Seizures: Yes - Epilepsy Review of Systems All Other Systems: negative except mentioned in HPI Physical Exam Vital Signs Date Time Temp Pulse Resp B/P (MAP) Pulse Ox O2 Delivery O2 Flow Rate FiO2 10/19/20 14:34 98.8 97 16 131/79 (96) 98 Room Air Sp02 EP Interpretation: reviewed, normal General Appearance: no apparent distress, alert, GCS 15, non-toxic Head: normocephalic, atraumatic Eyes: bilateral eye normal inspection, bilateral eye PERRL ENT: hearing grossly normal, no angioedema, normal voice Neck: full range of motion, supple/symm/no masses Respiratory: no respiratory distress, no retraction, no accessory muscle use Cardiovascular #1: regular rate, rhythm, no edema Cardiovascular #2: 2+ dorsalis pedis (R), 2+ dorsalis pedis (L) Gastrointestinal: soft Rectal: deferred Musculoskeletal: back normal, no calf tenderness, gait/station normal, no lower extremity edema, non-tender Neurologic: alert, motor strength/tone normal, oriented x3, sensory intact, responsive, speech normal Psychiatric: judgement/insight normal, memory normal, mood/affect normal, no suicidal/homicidal ideation Skin: no rash Lymphatic: no adenopathy Medical Decision Making PA Attestation All diagnosis and treatment plans were discussed and reviewed by my supervising physician Dr. 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 Reports the pain is worse when trying to sit and stand and bend forward. Rates it 10. Denies any tingling numbness. Denies any urinary bowel incontinence. Denies saddle paresthesia. Denies pain radiation to the leg. Denies any urinary symptoms. Denies . Has taken Advil with minimal relief. Is requesting something to help her sleep at night. Ddx considered but are not limited to: Lumbar spine sprain, strain, fracture, contusion, neuropathy, sciatica Vital signs: are WNL, pt. is afebrile H&PE are most consistent with: Lumbar strain ORDERS: No x-ray needed at this time patient no fall or injure herself. Flexeril, ibuprofen, lidocaine patch. Advised patient to not operate machinery when taking Flexeril ER intervention: Toradol, Robaxin, lidocaine patch DISCHARGE: At this time pt. is stable for d/c to home. Will provide printed patient care instructions, and any necessary prescriptions. Care plan and follow up instructions have been discussed with the patient prior to discharge. Patient take medication as directed, follow primary care provider, worsening symptoms return to the emergency room Last Vital Signs Date Time Temp Pulse Resp B/P (MAP) Pulse Ox O2 Delivery O2 Flow Rate FiO2 10/19/20 14:44 98.8 16 131/79 98 Room Air 10/19/20 14:34 97 Disposition: HOME, SELF-CARE Condition: Stable Scripts Lidocaine Patch* (Lidoderm Patch*) 1 Each Adh..patch 1 PATCH TOPIC DAILY, #30 PATCH Patch(es) may remain in place for up to 12 hours in any 24-hour period. Prov: Zheng Caceres 10/19/20 Ibuprofen (Ibu) 800 Mg Tablet 800 MG PO TID, #30 TAB Prov: Zheng Caceres 10/19/20 Cyclobenzaprine Hcl* (FLEXERIL*) 10 Mg Tablet 10 MG ORAL THREE TIMES A DAY, #20 TAB Prov: Zheng Caceres 10/19/20 Patient Instructions: Lumbosacral Strain Additional Instructions: Take medication as directed, follow primary care provider, worsening symptoms return to the emergency room Zheng Caceres Oct 19, 2020 15:22
[2020-10-19] MEDS ORDERED: IBU800 MG PO (15:23)
[2020-10-19] MEDS ORDERED: CYCLOBENZAPRINE10 MG ORAL (15:23)
[2020-10-19] MEDS ORDERED: LIDODERM700 M1 TOPIC (15:23)
[2020-10-19 15:25] VITALS: BP 131/79
--- NOTE | 2020-10-19 15:25 | NUR ---
ER DISCHARGE NOTE: Patient is cleared to be discharged per ERMD, pt is aox4, on room air, with stable vital signs. pt was given dc and prescription instructions, pt was able to verbalize understanding, pt id band removed without complications. pt is able to ambulate with steady gait. pt took all belongings.
[2020-10-19 16:05] LABS: APPEARANCE,URINE SLIGHTLY CLOUDY; BILIRUBIN, URINE NEGATIVE (NEGATIVE); GLUCOSE, URINE (UA) NEGATIVE (NEGATIVE); KETONES,URINE 1+ (NEGATIVE); LEUKOCYTE ESTERASE ,URINE 1+ (NEGATIVE); NITRITE,URINE NEGATIVE (NEGATIVE); PH,URINE 5 (4.5-8.0); PROTEIN,URINE NEGATIVE (NEGATIVE); UROBILINOGEN,URINE NORMAL MG/DL (0.0-1.0)
[2020-10-19 16:12] LABS: COLOR,URINE YELLOW
== END 2020-10-19 15:25 | disposition home or self-care (01) ==
LOC: EMR 15:20
DX: S39.012A Strain of muscle, fascia and tendon of lower back, initial encounter (principal); X50.0XXA Overexertion from strenuous movement or load, initial encounter; Y92.9 Unspecified place or not applicable
CPT/HCPCS: 81001; 81025; 96372; 99283